=== PATIENT | male | born 1950 | race Caucasian/White ===

== ENCOUNTER 2017-01-31 15:38 | Inpatient (IN) | payer OTHER ==
[~2017-01-31] VITALS: Ht 193 cm; Wt 103.1 kg
[2017-01-31 15:40] VITALS: BP 134/88; PULSE 128; RESP 17; TEMP 97.7; O2SAT 99
--- NOTE | 2017-01-31 18:14 | PD ---
HPI Chief Complaint: Abnormal Results Time Seen by Provider: 18:09 Travel History International Travel<30 days: No Contact w/Intl Traveler<30days: No Traveled to known affect area: No History of Present Illness HPI Patient is a 66-year-old male presenting to the emergency department for evaluation of generalized weakness, shortness of breath, abdominal bloating. Patient was sent by the [facility] due to the same symptoms as well as a 50 pound weight loss over the last 6 weeks. Patient states is unable to eat due to the nausea and vomiting. He denies any diarrhea. He states he has not had a bowel movement in 2 weeks. He reports feeling short of breath which he historically has felt however it's worse today. Patient had a thoracentesis on 12/24/16 in [place]. He had a repeat CT of the chest today per [facility] notes. Results are not available. He was sent to the emergency room additionally due to elevated liver enzymes, elevated BUN and creatinine, elevated potassium level. PFSH Past Medical History High Cholesterol: Yes Diabetes: Yes Hypertension: Yes Past Surgical History Thoracic Surgery: Yes (thoracentesis) Social History Alcohol Use: No Tobacco Use: Yes Substance Use: No Allergies-Medications (Allergen,Severity, Reaction): Coded Allergies: Lisinopril (Verified Allergy, Intermediate, COUGH, 01/31/17) Reported Meds & Prescriptions Reported Meds & Active Scripts Active Reported Multi Vitamin (Multiple Vitamin) 1 Tab Tab 1 Tab PO DAILY Atorvastatin (Atorvastatin Calcium) 40 Mg Tab 40 Mg PO HS Ventolin Hfa 18 GM Inh (Albuterol Sulfate) 90 Mcg/Act Aer 2 Puff INH Q4-6H PRN Review of Systems Except as stated in HPI: all other systems reviewed are Neg General / Constitutional: Positive: Fever (subjective), No: Chills HENT: No: Headaches Cardiovascular: Positive: Dyspnea on exertion, No: Chest Pain or Discomfort Respiratory: Positive: Cough, Shortness of Breath Gastrointestinal: Positive: Nausea, Vomiting, Abdominal Pain, Constipation, Changes in Bowel Habits, Loss of Appetite Genitourinary: No: Dysuria Neurologic: No: Dizziness, Focal Abnormalities Physical Exam Narrative GENERAL: Well-developed, well-nourished, alert male. Resting comfortably in no acute distress. SKIN: Warm and dry. HEAD: Atraumatic. Normocephalic. EYES: Pupils equal and round. No scleral icterus. No injection or drainage. ENT: No nasal bleeding or discharge. Mucous membranes pink and moist. NECK: Trachea midline. No JVD. CARDIOVASCULAR: Regular rate and rhythm. No murmur appreciated. RESPIRATORY: No accessory muscle use. Diminished breath sounds in right lower lobe, no wheezes, rhonchi, rales noted. GASTROINTESTINAL: Abdomen soft, non-tender, nondistended. Hepatic and splenic margins not palpable. MUSCULOSKELETAL: No obvious deformities. No clubbing. No cyanosis. No edema. NEUROLOGICAL: Awake and alert. No obvious cranial nerve deficits. Motor grossly within normal limits. Normal speech. PSYCHIATRIC: Appropriate mood and affect; insight and judgment normal. Data Data Last Documented VS Vital Signs Date Time Temp Pulse Resp B/P Pulse Ox O2 Delivery O2 Flow Rate FiO2 01/31/17 20:09 105 18 134/70 96 Room Air 01/31/17 15:40 97.7 Orders Complete Blood Count With Diff (01/31/17 18:07) Comprehensive Metabolic Panel (01/31/17 18:07) Act Partial Throm Time (Ptt) (01/31/17 18:07) Prothrombin Time / Inr (Pt) (01/31/17 18:07) Magnesium (Mg) (01/31/17 18:07) Urinalysis - C+S If Indicated (01/31/17 18:07) Chest, Pa & Lat (01/31/17 18:07) Lipase (01/31/17 18:07) Lactic Acid (01/31/17 18:07) Abdomen, Kub Only (01/31/17 18:07) D-Dimer (01/31/17 18:14) Electrocardiogram (01/31/17 ) Diltiazem Inj (Cardizem Inj) (01/31/17 19:45) Ckmb (Isoenzyme) Profile (01/31/17 19:51) Troponin I (01/31/17 19:51) Diltiazem Inj (Cardizem Inj) (01/31/17 20:00) Sodium Chlor 0.9% 1000 Ml Inj (Ns 1000 M (01/31/17 20:00) Sodium Chlor 0.9% 1000 Ml Inj (Ns 1000 M (01/31/17 20:02) Us Abdomen Gallbladder (01/31/17 ) Ceftriaxone Inj (Rocephin Inj) (01/31/17 20:15) Azithromycin Inj (Zithromax Inj) (01/31/17 20:15) Labs Laboratory Tests Test 01/31/17 18:40 White Blood Count 9.8 TH/MM3 Red Blood Count 4.45 MIL/MM3 Hemoglobin 13.9 GM/DL Hematocrit 42.2 % Mean Corpuscular Volume 94.7 FL Mean Corpuscular Hemoglobin 31.3 PG Mean Corpuscular Hemoglobin 33.0 % Concent Red Cell Distribution Width 18.8 % Platelet Count 100 TH/MM3 Mean Platelet Volume 9.9 FL Neutrophils (%) (Auto) 82.9 % Lymphocytes (%) (Auto) 3.7 % Monocytes (%) (Auto) 13.2 % Eosinophils (%) (Auto) 0.0 % Basophils (%) (Auto) 0.2 % Neutrophils # (Auto) 8.1 TH/MM3 Lymphocytes # (Auto) 0.4 TH/MM3 Monocytes # (Auto) 1.3 TH/MM3 Eosinophils # (Auto) 0.0 TH/MM3 Basophils # (Auto) 0.0 TH/MM3 CBC Comment DIFF FINAL Differential Comment Prothrombin Time 14.7 SEC Prothromb Time International 1.3 RATIO Ratio Activated Partial 30.3 SEC Thromboplast Time D-Dimer Quantitative (PE/DVT) 12.93 MG/L FEU Sodium Level 122 MEQ/L Potassium Level 5.1 MEQ/L Chloride Level 87 MEQ/L Carbon Dioxide Level 22.8 MEQ/L Anion Gap 12 MEQ/L Blood Urea Nitrogen 70 MG/DL Creatinine 2.47 MG/DL Estimat Glomerular Filtration 26 ML/MIN Rate Random Glucose 123 MG/DL Lactic Acid Level 2.5 mmol/L Calcium Level 8.5 MG/DL Magnesium Level 2.8 MG/DL Total Bilirubin 4.7 MG/DL Aspartate Amino Transf 67 U/L (AST/SGOT) Alanine Aminotransferase 284 U/L (ALT/SGPT) Alkaline Phosphatase 117 U/L Total Protein 7.3 GM/DL Albumin 3.0 GM/DL Lipase 193 U/L MDM Medical Decision Making Medical Screen Exam Complete: Yes Emergency Medical Condition: Yes Interpretation(s) Vital Signs Date Time Temp Pulse Resp B/P Pulse Ox O2 Delivery O2 Flow Rate FiO2 01/31/17 15:40 97.7 128 17 134/88 99 Differential Diagnosis Sepsis versus malignancy versus pneumothorax versus pneumonia versus liver failure versus acute kidney injury versus other Narrative Course Patient is a 66-year-old male presenting to emergency for evaluation of generalized weakness, nausea and vomiting, abdominal pain, weight loss. Patient sustained a mechanical fall yesterday. Labs ordered and pending. D-dimer will be obtained due to tachycardia and shortness of breath. Workup initiated in triage, care of patient will be transferred to a provider when a medical bed is available. Evy Thorpe Jan 31, 2017 18:14
[2017-01-31] MEDS ORDERED: MULT-135 PO (19:00)
[2017-01-31] MEDS ORDERED: VENTAER INH (19:00)
[2017-01-31] MEDS ORDERED: ATOR40TA16 PO (19:00)
[2017-01-31 19:04] LABS: AUTOMATED NEUTROPHIL # 8.1 TH/MM3 (1.8-7.7); BASOPHIL % 0.2 % (0.0-2.0); HEMATOCRIT 42.2 % (39.0-51.0); HEMO FLAGS DIFF FINAL; LYMPH % 3.7 % (9.0-44.0); LYMPHOCYTE # 0.4 TH/MM3 (1.0-4.8); MEAN CELL VOLUME 94.7 FL (80.0-100.0); MEAN CORPUSCULAR HEMOGLOBIN 31.3 PG (27.0-34.0); MONO % 13.2 % (0.0-8.0); NEUT % 82.9 % (16.0-70.0); PLATELET COUNT 100 TH/MM3 (150-450); RED BLOOD COUNT 4.45 MIL/MM3 (4.50-5.90); RED CELL DISTRIBUTION WIDTH 18.8 % (11.6-17.2); WHITE BLOOD COUNT 9.8 TH/MM3 (4.0-11.0)
[2017-01-31 19:14] LABS: APTT (PATIENT) 30.3 SEC (24.3-30.1); INTERNATIONAL NORMALIZED RATIO 1.3 RATIO; PROTHROMBIN TIME - PATIENT 14.7 SEC (9.8-11.6)
--- NOTE | 2017-01-31 19:18 | RADRPT ---
EXAM DATE/TIME: 01/31/2017 18:21 [facility] COMPARISON: No previous studies available for comparison. INDICATIONS : Short of breath. MEDICAL HISTORY : smoker. SURGICAL HISTORY : None. ENCOUNTER: Initial ACUITY: 2 months PAIN SCORE: 0/10 LOCATION: Bilateral chest FINDINGS: There appears to be parenchymal consolidation and effusion involving the right lower lung. The left l bahman is clear. Heart size is upper limits of normal. There are no prior studies for comparison. The [place] structures are grossly intact. CONCLUSION: There is parenchymal consolidation in the right lower lung as well as a right-sided pleural effusion. Cem Lee MD on January 31, 2017 at 19:15 Board Certified Radiologist. This report was verified electronically.
--- NOTE | 2017-01-31 19:22 | RADRPT ---
EXAM DATE/TIME: 01/31/2017 18:27 [facility] COMPARISON: No previous studies available for comparison. INDICATIONS : Distention. MEDICAL HISTORY : Liver and kidney disfunction. SURGICAL HISTORY : None. ENCOUNTER: Initial ACUITY: 4 - 6 days PAIN SCORE: 10/10 LOCATION: Bilateral abdomen. FINDINGS: Supine view of the abdomen was performed. The abdominal bowel gas pattern is nonspecific. There is s ome nondilated air-filled loops of small bowel. The colon is nondilated. There is stool in the colon. .. there is a calcification in the right upper quadrant having the appearance of a possible gallstone . There are degenerative changes of lumbar spine. CONCLUSION: 1. Nonspecific bowel gas pattern. 2. Calcification right upper quadrant most likely representing a gallstone. Cem Lee MD on January 31, 2017 at 19:18 Board Certified Radiologist. This report was verified electronically.
[2017-01-31 19:39] VITALS: BP 164/102; PULSE 128; RESP 19; O2SAT 97
[2017-01-31] MEDS ORDERED: DILTIAZEM HCL 25 MG/5 ML VIAL IV ONE ×2 (19:45→20:00)
[2017-01-31 19:56] LABS: ALKALINE PHOSPHATASE 117 U/L (45-117); ALT (GPT) 284 U/L (12-78); ANION GAP 12 MEQ/L (5-15); AST (GOT) 67 U/L (15-37); BICARBONATE 22.8 MEQ/L (21.0-32.0); BLOOD UREA NITROGEN 70 MG/DL (7-18); CHLORIDE 87 MEQ/L (98-107); GLOMERULAR FILTRATION RATE 26 ML/MIN (>89); MAGNESIUM 2.8 MG/DL (1.5-2.5); POTASSIUM 5.1 MEQ/L (3.5-5.1); TOTAL BILIRUBIN ADULT 4.7 MG/DL (0.2-1.0)
[2017-01-31 19:59] LABS: SODIUM (NA) 122 MEQ/L (136-145)
[2017-01-31] MEDS ORDERED: SODIUM CHLOR 0.9% 1000 ML INJ 1,000 ML IV ONE (20:00)
[2017-01-31] MEDS ORDERED: SODIUM CHLOR 0.9% 1000 ML INJ 1,000 ML IV SCH ×2 (20:02→20:27)
[2017-01-31 20:09] VITALS: BP 134/70; PULSE 105; RESP 18; O2SAT 96
[2017-01-31] MEDS ORDERED: AZITHROMYCIN INJ 500 MG in SODIUM CHLOR 0.9% 250 ML INJ 250 ML IV ONE (20:15)
[2017-01-31] MEDS ORDERED: cefTRIAXone INJ 1,000 MG in SODIUM CHLORIDE 0.9% INJ 100 ML IV ONE (20:15)
[2017-01-31 20:19] LABS: CREATINE KINASE 155 U/L (39-308)
--- NOTE | 2017-01-31 20:20 | PD ---
Data Data Last Documented VS Vital Signs Date Time Temp Pulse Resp B/P Pulse Ox O2 Delivery O2 Flow Rate FiO2 01/31/17 20:09 105 18 134/70 96 Room Air 01/31/17 15:40 97.7 Orders Complete Blood Count With Diff (01/31/17 18:07) Comprehensive Metabolic Panel (01/31/17 18:07) Act Partial Throm Time (Ptt) (01/31/17 18:07) Prothrombin Time / Inr (Pt) (01/31/17 18:07) Magnesium (Mg) (01/31/17 18:07) Urinalysis - C+S If Indicated (01/31/17 18:07) Chest, Pa & Lat (01/31/17 18:07) Lipase (01/31/17 18:07) Lactic Acid (01/31/17 18:07) Abdomen, Kub Only (01/31/17 18:07) D-Dimer (01/31/17 18:14) Electrocardiogram (01/31/17 ) Diltiazem Inj (Cardizem Inj) (01/31/17 19:45) Ckmb (Isoenzyme) Profile (01/31/17 19:51) Troponin I (01/31/17 19:51) Diltiazem Inj (Cardizem Inj) (01/31/17 20:00) Sodium Chlor 0.9% 1000 Ml Inj (Ns 1000 M (01/31/17 20:00) Sodium Chlor 0.9% 1000 Ml Inj (Ns 1000 M (01/31/17 20:02) Us Abdomen Gallbladder (01/31/17 ) Ceftriaxone Inj (Rocephin Inj) (01/31/17 20:15) Azithromycin Inj (Zithromax Inj) (01/31/17 20:15) CKMB (01/31/17 18:40) CKMB% (01/31/17 18:40) Vital Signs (Adult) Q15MX4,Q4H (01/31/17 20:20) [employer] / Telemetry SHAWNA.Q8H (01/31/17 20:20) Cardiac Rhythm SHAWNA.Q8H (01/31/17 20:20) ^ Notify Dr: Other (01/31/17 20:20) Diltiazem Inj (Cardizem Inj) (01/31/17 20:30) Labs Laboratory Tests Test 01/31/17 18:40 White Blood Count 9.8 TH/MM3 Red Blood Count 4.45 MIL/MM3 Hemoglobin 13.9 GM/DL Hematocrit 42.2 % Mean Corpuscular Volume 94.7 FL Mean Corpuscular Hemoglobin 31.3 PG Mean Corpuscular Hemoglobin 33.0 % Concent Red Cell Distribution Width 18.8 % Platelet Count 100 TH/MM3 Mean Platelet Volume 9.9 FL Neutrophils (%) (Auto) 82.9 % Lymphocytes (%) (Auto) 3.7 % Monocytes (%) (Auto) 13.2 % Eosinophils (%) (Auto) 0.0 % Basophils (%) (Auto) 0.2 % Neutrophils # (Auto) 8.1 TH/MM3 Lymphocytes # (Auto) 0.4 TH/MM3 Monocytes # (Auto) 1.3 TH/MM3 Eosinophils # (Auto) 0.0 TH/MM3 Basophils # (Auto) 0.0 TH/MM3 CBC Comment DIFF FINAL Differential Comment Prothrombin Time 14.7 SEC Prothromb Time International 1.3 RATIO Ratio Activated Partial 30.3 SEC Thromboplast Time D-Dimer Quantitative (PE/DVT) 12.93 MG/L FEU Sodium Level 122 MEQ/L Potassium Level 5.1 MEQ/L Chloride Level 87 MEQ/L Carbon Dioxide Level 22.8 MEQ/L Anion Gap 12 MEQ/L Blood Urea Nitrogen 70 MG/DL Creatinine 2.47 MG/DL Estimat Glomerular Filtration 26 ML/MIN Rate Random Glucose 123 MG/DL Lactic Acid Level 2.5 mmol/L Calcium Level 8.5 MG/DL Magnesium Level 2.8 MG/DL Total Bilirubin 4.7 MG/DL Aspartate Amino Transf 67 U/L (AST/SGOT) Alanine Aminotransferase 284 U/L (ALT/SGPT) Alkaline Phosphatase 117 U/L Total Creatine Kinase 155 U/L Troponin I LESS THAN 0.02 NG/ML Total Protein 7.3 GM/DL Albumin 3.0 GM/DL Lipase 193 U/L [facility] Supervised Visit with REYNALDO: No Narrative Course The patient was initially evaluated in triage by the nurse practitioner brought back to my care 4 hours after he initially presented to the emergency department. See her note for further details. Briefly this is a 66-year-old male who was sent to the emergency department by the CT clinic for evaluation of elevated liver enzymes and elevated creatinine. These findings are new for the patient. Patient is complaining of generalized weakness and abdominal bloating. He denies abdominal pain. He is also had a 50 pound weight loss over the last 6 weeks. He had a thoracentesis on 12/24/16 in [place] and had a repeat CT of the abdomen and thorax today per the CT notes, however results are not available. Patient denies chest pain or dyspnea. On physical exam he is resting comfortably. His heart rate is noted to be 130, atrial flutter. Blood pressure is 134/88. CBC shows WBC 9.8, hemoglobin 13.9, hematocrit 42.2, platelets 100, neutrophils 82.9%. CMP is remarkable for sodium 122, BUN 70, creatinine 2.47, GFR 26, T bili 4.7, AST 67, ALT 284. Lactic acid is 2.5. Chest x-ray: Parenchymal consolidation in the right lower lung as well as right-sided pleural effusion. X-ray abdomen pelvis: Nonspecific bowel gas pattern. Calcification right upper quadrant most likely representing a gallstone. On physical exam there is no abdominal tenderness. The patient is resting comfortably. He was given 20 mg of IV Cardizem without improvement in heart rate. He was then given another 20 mg of IV Cardizem, again without improvement in heart rate. He was then started on a Cardizem drip. Right upper quadrant ultrasound ordered. The patient was started on Rocephin and azithromycin for chest x-ray findings. He was given a liter of normal saline bolus followed by normal saline at 125 cc per hour. He will be admitted for further treatment and evaluation of hyponatremia, atrial flutter with RVR, lactic acidosis, renal insufficiency, transaminitis. Case discussed with hospitalist Dr. Hung who will admit the patient to his service to the ICU. Critical Care Narrative Aggregate critical care time was 35 minutes. Time to perform other separately billable procedures was not included in the critical care time. My time did not include minutes spent treating any other patients simultaneously or on activities that did not directly contribute to the patient's treatment. The services I provided to this patient were to treat and/or prevent clinically significant deterioration that could result in: , permanent disability, worsening clinical condition I provided critical care services requiring my management, as noted below: Chart data review, documentation time, medication orders and management, vital sign assessments/reviewing monitor data, ordering and reviewing lab tests, ordering and interpreting/reviewing x-rays and diagnostic studies, care of the patient and discussion of the patient with the admitting physicians. Diagnosis Primary Impression: Atrial flutter with rapid ventricular response Additional Impressions: Hyponatremia Renal insufficiency Transaminitis Lactic acidosis Pneumonia Qualified Code: J18.1 - Pneumonia of right lower lobe due to infectious organism Pleural effusion Admitting Information Admitting Physician Requests: Admit Neftaly Landon MD Jan 31, 2017 20:20
[2017-01-31] MEDS ORDERED: NALOXONE HCL 0.4 MG/ML AMP IV PRN (20:30)
[2017-01-31] MEDS ORDERED: ONDANSETRON HCL 4 MG/2 ML VIAL IVP PRN (20:30)
[2017-01-31] MEDS ORDERED: MAGNESIUM HYDROXIDE SUSP 30 ML CUP PO PRN (20:30)
--- NOTE | 2017-01-31 20:46 | HHI.HP ---
[facility] Primary Care Physician Admission Diagnosis A flutter with RVR, hyponatremia, renal insufficiency, transaminitis Diagnoses: Chief Complaint: increased swelling, cough, abdominal pain Travel History International Travel<30 Days: No Contact w/Intl Traveler <30 Da: No Traveled to Known Affected Are: No History of Present Illness 66 y/o with a history of DM, HTN, hyperlipidemia and COPD was sent to the ED from the [facility] for abnormal chest CT. Patient explains that all his problems started 3-4 weeks ago when fluid was found in his lungs, at the [facility] he reportedly had a thoracentesis. He followed up with the [facility] today who sent him for a CT scan and told him he needed to be admitted to a hospital. He was not told what the CT showed. Yesterday he states he felt dizzy and lost his balance and fall. Denies loss of consciousness, but does have pain in the sacral region where he landed. He complains of a dry cough with no sputum production and increased swelling in his legs. He is also complaining of swelling and pain on the right side of his abdomen. He states he feels feverish but no documented temp. He denies any chest pain, chills, nausea , vomiting, constipation or diarrhea. He was on Levaquin at some point from the [facility] but is unsure when he last took it. Records are being requested from the [facility]. Review of Systems Constitutional: COMPLAINS OF: Fever, Night Sweats, DENIES: Chills, Dizziness Eyes: DENIES: Blurred vision Respiratory: COMPLAINS OF: Cough, Shortness of breath, DENIES: Sputum production Cardiovascular: COMPLAINS OF: Lower Extremity Edema, DENIES: Chest pain Gastrointestinal: COMPLAINS OF: Abdominal pain, DENIES: Constipation, Diarrhea , Nausea, Vomiting Genitourinary: DENIES: Urinary incontinence, Urgency, Hematuria, Dysuria Musculoskeletal: COMPLAINS OF: Back pain, DENIES: Neck pain Integumentary: DENIES: Rash Hematologic/lymphatic: DENIES: Lymphadenopathy Neurologic: DENIES: Headache, Localized weakness Past Family Social History Past Medical History DM HTN Hyperlipidemia Chronic low back pain COPD Past Surgical History Denies any surgical history Reported Medications Reported Meds & Active Scripts Active Reported Multi Vitamin (Multiple Vitamin) 1 Tab Tab 1 Tab PO DAILY Atorvastatin (Atorvastatin Calcium) 40 Mg Tab 40 Mg PO HS Ventolin Hfa 18 GM Inh (Albuterol Sulfate) 90 Mcg/Act Aer 2 Puff INH Q4-6H PRN Allergies: Coded Allergies: Lisinopril (Verified Allergy, Intermediate, COUGH, 01/31/17) Active Ordered Medications Current Medications Medications (Trade) Dose Ordered Sig/Narda Route Start Time Stop Time Status Last Admin Sodium Chloride 1,000 ml @ 999 mls/hr BOLUS ONCE IV 01/31/17 20:00 01/31/17 21:00 01/31/17 20:06 Sodium Chloride 1,000 ml @ 125 mls/hr Q8H IV 01/31/17 20:02 02/01/17 04:01 Ceftriaxone Sodium 1000 mg/ Sodium Chloride 100 ml @ 200 mls/hr ONCE ONCE IV 01/31/17 20:15 01/31/17 20:44 Azithromycin 500 mg/Sodium Chloride 250 ml @ 250 mls/hr ONCE ONCE IV 01/31/17 20:15 01/31/17 21:14 01/31/17 20:12 Diltiazem HCl 125 mg/Sodium Chloride 125 ml @ 0 mls/hr TITRATE IV 01/31/17 20:30 (NS 1000 ml Inj) 1,000 ml @ 70 mls/hr [id number] IV 01/31/17 20:27 UNV (Zofran Inj) 4 mg Q6H PRN IVP 01/31/17 20:30 UNV (Milk Of Magnesia Liq) 30 ml Q12H PRN PO 01/31/17 20:30 UNV (Heparin Inj) 5,000 units Q12H SQ 01/31/17 20:30 UNV (Narcan Inj) 0.4 mg UNSCH PRN IV 01/31/17 20:30 UNV Family History Patient denies any family history including heart disease and DM. Social History Tobacco use: quit 3 years ago, prior to this he smokes 1 ppd for 25 years Alcohol use: Only on Fridays Illicit drug use: Marijuana use, none for the past 2 months Physical Exam Vital Signs Vital Signs Date Time Temp Pulse Resp B/P Pulse Ox O2 Delivery O2 Flow Rate FiO2 01/31/17 20:09 105 18 134/70 96 Room Air 01/31/17 19:39 128 19 164/102 97 Room Air 01/31/17 15:40 97.7 128 17 134/88 99 Physical Exam GENERAL: This is a well-nourished, well-developed patient, in some distress. SKIN: No rashes, ecchymoses or lesions. Cool and dry. HEAD: Atraumatic. Normocephalic. EYES: Pupils equal round and reactive. Extraocular motions intact. ENT: Nose without bleeding, purulent drainage or septal hematoma. Airway patent. NECK: Trachea midline. No JVD CARDIOVASCULAR: Tachycardic rate and aflutter rhythm without murmurs, gallops, or rubs. +2 pitting lower extremity edema. RESPIRATORY: Decreased breath sounds bilaterally. Right lower base crackles. GASTROINTESTINAL: Abdomen soft, tender, nondistended. No hepato-splenomegaly, or palpable masses. No guarding. MUSCULOSKELETAL: Bilateral lower extremities edematous. No joint tenderness, effusion, or edema noted. No calf tenderness. NEUROLOGICAL: Awake and alert. Motor and sensory grossly within normal limits. Normal speech. Laboratory Laboratory Tests Test 01/31/17 18:40 White Blood Count 9.8 Red Blood Count 4.45 Hemoglobin 13.9 Hematocrit 42.2 Mean Corpuscular Volume 94.7 Mean Corpuscular Hemoglobin 31.3 Mean Corpuscular Hemoglobin 33.0 Concent Red Cell Distribution Width 18.8 Platelet Count 100 Mean Platelet Volume 9.9 Neutrophils (%) (Auto) 82.9 Lymphocytes (%) (Auto) 3.7 Monocytes (%) (Auto) 13.2 Eosinophils (%) (Auto) 0.0 Basophils (%) (Auto) 0.2 Neutrophils # (Auto) 8.1 Lymphocytes # (Auto) 0.4 Monocytes # (Auto) 1.3 Eosinophils # (Auto) 0.0 Basophils # (Auto) 0.0 CBC Comment DIFF FINAL Differential Comment Prothrombin Time 14.7 Prothromb Time International 1.3 Ratio Activated Partial 30.3 Thromboplast Time D-Dimer Quantitative (PE/DVT) 12.93 Sodium Level 122 Potassium Level 5.1 Chloride Level 87 Carbon Dioxide Level 22.8 Anion Gap 12 Blood Urea Nitrogen 70 Creatinine 2.47 Estimat Glomerular Filtration 26 Rate Random Glucose 123 Lactic Acid Level 2.5 Calcium Level 8.5 Magnesium Level 2.8 Total Bilirubin 4.7 Aspartate Amino Transf 67 (AST/SGOT) Alanine Aminotransferase 284 (ALT/SGPT) Alkaline Phosphatase 117 Total Creatine Kinase 155 Creatine Kinase MB 3.0 Troponin I LESS THAN 0.02 Total Protein 7.3 Albumin 3.0 Lipase 193 Result Diagram: 01/31/17 1840 01/31/17 1840 Imaging Last Impressions Chest X-Ray 01/31/17 180 Signed Impressions: Service Date/Time: Tuesday, January 31, 2017 18:21 - CONCLUSION: There is parenchymal consolidation in the right lower lung as well as a right-sided pleural effusion. Cem Lee MD Abdomen X-Ray 01/31/171806 Signed Impressions: Service Date/Time: Tuesday, January 31, 2017 18:27 - CONCLUSION: 1. Nonspecific bowel gas pattern. 2. Calcification right upper quadrant most likely representing a gallstone. Cem Lee MD Gall Bladder Ultrasound 01/31/17 0000 Signed Impressions: Service Date/Time: Tuesday, January 31, 2017 20:24 - CONCLUSION: 1. Cholelithiasis with mild gallbladder wall thickening. 2. Moderate to large right effusion. 3. Ascitic fluid in the right lower quadrant. Jacob Graham MD Assessment and Plan Problem List: (1) Pneumonia ICD Code: J18.9 Status: Acute (2) Atrial flutter with rapid ventricular response ICD Code: I48.92 Status: Acute (3) Abdominal pain ICD Code: R10.9 Status: Acute (4) Acute kidney failure ICD Code: N17.9 Status: Acute (5) Elevated LFTs ICD Code: R94.5 Status: Acute (6) Edema ICD Code: R60.9 Status: Acute (7) Hyponatremia ICD Code: E87.1 Status: Acute (8) Lactic acidosis ICD Code: E87.2 Status: Acute Assessment and Plan 66 y/o with a history of DM, HTN, hyperlipidemia and COPD was sent to the ED from the [place] for abnormal chest CT. Pneumonia Images reviewed: Chest xray shows parenchymal consolidation in the right lower lung as well as a right-sided pleural effusion. Labs: Neutrophils 82.9 % -IV antibiotics Rocephin and Azithromycin -CBC in AM -Consult ID for recommendations -Awaiting records from [place] Abdominal pain/ Elevated LFTs/ Cholelithiasis Images reviewed: Abdominal xray shows Nonspecific bowel gas pattern and calcification right upper quadrant most likely representing a gallstone. Gall bladder US shows Cholelithiasis with mild gallbladder wall thickening. Moderate to large right effusion, and ascitic fluid in the right lower quadrant. Labs: AST 67, ALT 284 -Consult GI and general surgery for recommendations -CMP in AM -Hepatitis profile ordered Aflutter with RVR EKG shows Aflutter with RVR -Consult cardiology -Cont Cardizem drip -Monitor tele Acute kidney failure Labs reviewed: creatine 2.47 unknown baseline -Consult nephrology for recommendations -Trend CMP -Avoid nephrotoxic drugs Edema, +2 in bilateral lower extremities -Bumex IV BID Hyponatremia/ Lactic Acidosis Labs: NS 122, Lactic acid 2.5 -Gentle IVF -CMP, Lactic acid in AM -Blood cultures pending DVT prophylaxis: Heparin Written by Radha PHILLIPS, acting as scribe for Dr. Hung on 01/31/17 at 2036. All or portions of this note were transcribed by scribe JACQUELINE Sow. I, Dr. Daniel Hung personally performed the history, physical exam, and medical decision making; and confirmed the accuracy of the information in the transcribed note. Authenticated by Dr. Daniel Hung on 02/01/17 at 01:59. Code Status FULL Discussed Condition With Patient and RN Physician Certification 2 Midnight Certification Type: Admission for Inpatient Services Order for Inpatient Services The services are ordered in accordance with Medicare regulations or non- Medicare payer requirements, as applicable. In the case of services not specified as inpatient-only, they are appropriately provided as inpatient services in accordance with the 2-midnight benchmark. Estimated LOS (days): 3 days is the estimated time the patient will need to remain in the hospital, assuming treatment plan goals are met and no additional complications. Post-Hospital Plan: Home Problem Qualifiers (1) Pneumonia: Qualified Code: J18.1 - Pneumonia of right lower lobe due to infectious organism Radha Perez Jan 31, 2017 20:46 Daniel Hung MD Feb 01, 2017 01:59
[2017-01-31] MEDS ORDERED: HEPARIN SODIUM - SQ 10,000 UNITS/ML VIAL SQ SCH (21:00)
--- NOTE | 2017-01-31 21:00 | RADRPT ---
EXAM DATE/TIME: 01/31/2017 20:24 [place] COMPARISON: No previous studies available for comparison. INDICATIONS : Right upper quadrant pain. MEDICAL HISTORY : Hypercholesterolemia. Hypertension. Renal failure. Diabetes. SURGICAL HISTORY : Thoracentesis. ENCOUNTER: Initial ACUITY: 2 weeks PAIN SCORE: 3/10 LOCATION: Right upper quadrant MEASUREMENTS: LIVER: 14.4 cm length COMMON DUCT: 4 mm RIGHT KIDNEY: 10.3 x 5.0 x 5.5 cm FINDINGS: LIVER: Normal echotexture without focal lesion or ductal dilatation. There is a moderate to large right eff usion. Ascitic fluid is present in the right lower quadrant. COMMON DUCT: No intraluminal mass or stone visualized. GALLBLADDER: The gallbladder is normal in size with mild wall thickening measuring up to 4 mm with no pericholecys tic fluid. There is a 17 mm gallstone in the neck of the gallbladder with posterior shadowing. PANCREAS: Could not be visualized due to overlying bowel gas. RIGHT KIDNEY: No evidence of hydronephrosis, stone, or mass. CONCLUSION: 1. Cholelithiasis with mild gallbladder wall thickening. 2. Moderate to large right effusion. 3. Ascitic fluid in the right lower quadrant. Jacob Graham MD on January 31, 2017 at 20:57 Board Certified Radiologist. This report was verified electronically.
[2017-01-31] MEDS: DILTIAZEM INJ 125 MG in SODIUM CHLORIDE 0.9% INJ 100 ML IV SCH (21:10)
[2017-01-31] MEDS ORDERED: BUMETANIDE INJ 1 MG/4 ML VIAL IV PUSH ONE (21:15)
[2017-01-31 22:11] LABS: BACTERIA, URINE OCC /hpf; BLOOD, URINE NEG (NEG); COMMENT (UR) CULT NOT INDICATED; CULTURE IF INDICATED CULT NOT INDICATED; GLUCOSE,URINE NEG (NEG); HYALINE CAST, URINE 20 /lpf (RARE); KETONE, URINE NEG (NEG); MUCUS URINE FEW /lpf (OCC); NITRITE,URINE NEG (NEG); PH, URINE 5.5 (5.0-8.5); SQUAMOUS EPITHELIAL CELL URINE <1 /hpf (0-5); URINE COLOR AMBER (YELLW/STRAW)
[2017-01-31 22:22] VITALS: BP 115/71; PULSE 127; RESP 24; TEMP 97.9; O2SAT 99
[2017-01-31] MEDS ORDERED: CHLORHEXIDINE GLUCONATE 2 % 1 PACK (2 CLOTHS)(extra cloths) TOP PRN (22:30)
[2017-01-31 23:00] VITALS: PULSE 127
[2017-02-01] VITALS (12 sets, daily range): BP systolic 119–163; BP diastolic 75–128; PULSE 109–128; RESP 18–24; TEMP 97.7–98; O2SAT 94–97
[2017-02-01] MEDS: CHLORHEXIDINE GLUCONATE 2 % 1 PACK (2 CLOTHS)(taper/protocol) TOP SCH (05:53)
[2017-02-01] MEDS: DILTIAZEM INJ 125 MG in SODIUM CHLORIDE 0.9% INJ 100 ML IV SCH (06:25)
[2017-02-01 06:29] LABS: AUTOMATED NEUTROPHIL # 7.5 TH/MM3 (1.8-7.7); BASOPHIL % 0.1 % (0.0-2.0); HEMATOCRIT 37.7 % (39.0-51.0); LYMPH % 4.4 % (9.0-44.0); LYMPHOCYTE # 0.4 TH/MM3 (1.0-4.8); MEAN CELL VOLUME 93.2 FL (80.0-100.0); MEAN CORPUSCULAR HEMOGLOBIN 31.6 PG (27.0-34.0); MEAN CORPUSCULAR HGB CONC 33.9 % (32.0-36.0); MONO % 13.2 % (0.0-8.0); NEUT % 82.3 % (16.0-70.0); PLATELET COUNT 98 TH/MM3 (150-450); RED BLOOD COUNT 4.04 MIL/MM3 (4.50-5.90); RED CELL DISTRIBUTION WIDTH 18.3 % (11.6-17.2); WHITE BLOOD COUNT 9.1 TH/MM3 (4.0-11.0)
[2017-02-01 06:36] LABS: HEMO FLAGS AUTO DIFF
[2017-02-01 06:37] LABS: INTERNATIONAL NORMALIZED RATIO 1.4 RATIO; PROTHROMBIN TIME - PATIENT 15.4 SEC (9.8-11.6)
[2017-02-01 07:02] LABS: ANION GAP 14 MEQ/L (5-15); AST (GOT) 52 U/L (15-37); BICARBONATE 23.5 MEQ/L (21.0-32.0); BLOOD UREA NITROGEN 68 MG/DL (7-18); CHLORIDE 91 MEQ/L (98-107); GLOMERULAR FILTRATION RATE 30 ML/MIN (>89); POTASSIUM 5.2 MEQ/L (3.5-5.1); SODIUM (NA) 128 MEQ/L (136-145)
[2017-02-01 07:05] LABS: ALKALINE PHOSPHATASE 95 U/L (45-117); ALT (GPT) 217 U/L (12-78); TOTAL BILIRUBIN ADULT 3.6 MG/DL (0.2-1.0)
[2017-02-01 07:48] LABS: OVALOCYTES 1+ (NORMAL); PLATELET ESTIMATE SMEAR LOW (NORMAL); PLATELET MORPHOLOGY NORMAL (NORMAL); SCAN/DIFF AUTO DIFF CONFIRMED
[2017-02-01] MEDS ORDERED: cefTRIAXone INJ 1,000 MG in SODIUM CHLORIDE 0.9% INJ 100 ML IV SCH (08:00)
[2017-02-01] MEDS ORDERED: hydrALAZINE HCL 20 MG/ML VIAL IV PUSH PRN (08:45)
[2017-02-01] MEDS ORDERED: HEPARIN SODIUM - IV 10,000 UNITS/10 ML VIAL IV ONE (09:00)
--- NOTE | 2017-02-01 09:00 | HHI.PR ---
Subjective Remarks in no acute distress. complaining of swelling of the legs. no fever. HR still elevated. d/w the RN. Objective Vitals Vital Signs Date Time Temp Pulse Resp B/P Pulse Ox O2 Delivery O2 Flow Rate FiO2 02/01/17 06:00 110 02/01/17 04:00 97.8 117 18 163/81 96 02/01/17 04:00 117 02/01/17 02:00 122 02/01/17 00:00 97.8 128 20 119/89 97 02/01/17 00:00 128 01/31/17 23:00 127 01/31/17 22:22 97.9 127 24 115/71 99 01/31/17 20:09 105 18 134/70 96 Room Air 01/31/17 20:09 96 21 01/31/17 19:39 128 19 164/102 97 Room Air 01/31/17 15:40 97.7 128 17 134/88 99 I/O 01/31/17 01/31/17 01/31/17 02/01/17 02/01/17 02/01/17 07:00 15:00 23:00 07:00 15:00 23:00 Intake Total 262 ml 2116 ml Output Total 0 ml 240 ml Balance 262 ml 1876 ml Intake Oral 0 ml 800 ml IV Total 262 ml 1316 ml Output Urine Total 0 ml 240 ml # Bowel Movements 0 0 Result Diagram: 02/01/17 0609 02/01/17 0609 Imaging Last Impressions Chest X-Ray 01/31/171806 Signed Impressions: Service Date/Time: Tuesday, January 31, 2017 18:21 - CONCLUSION: There is parenchymal consolidation in the right lower lung as well as a right-sided pleural effusion. Cem Lee MD Abdomen X-Ray 01/31/171806 Signed Impressions: Service Date/Time: Tuesday, January 31, 2017 18:27 - CONCLUSION: 1. Nonspecific bowel gas pattern. 2. Calcification right upper quadrant most likely representing a gallstone. Cem Lee MD Gall Bladder Ultrasound 01/31/17 0000 Signed Impressions: Service Date/Time: Tuesday, January 31, 2017 20:24 - CONCLUSION: 1. Cholelithiasis with mild gallbladder wall thickening. 2. Moderate to large right effusion. 3. Ascitic fluid in the right lower quadrant. Jacob Graham MD Objective Remarks GENERAL: This is a well-nourished, well-developed patient, in no apparent distress. CARDIOVASCULAR: tachycardic and irregular rhythm without murmurs, gallops, or rubs. RESPIRATORY: Clear to auscultation. Breath sounds equal bilaterally. No wheezes , rales, or rhonchi. GASTROINTESTINAL: Abdomen soft, non-tender, distended. Normal, active bowel sounds MUSCULOSKELETAL: Extremities with bilateral pedal edema NEURO: Alert & Oriented x4 to person, place, time, situation. Moves all ext x4 Procedures none Medications and IVs Current Medications Diltiazem HCl (Cardizem Inj) 15 mg ONCE ONCE IV Last administered on 19:42; Start 01/31/17 at 19:45; Stop 01/31/17 at 19:46; Status DC Diltiazem HCl 20 mg 20 mg ONCE ONCE IV Last administered on 01/31/17 20:06; Start 01/31/17 at 20:00; Stop 01/31/17 at 20:01; Status DC Sodium Chloride 1,000 ml @ 999 mls/hr BOLUS ONCE IV Last administered on 01/31 20:06; Start 01/31/17 at 20:00; Stop 01/31/17 at 21:00; Status DC Sodium Chloride 1,000 ml @ 125 mls/hr Q8H IV Last administered on 01/31/17 21 :11; Start 01/31/17 at 20:02; Stop 02/01/17 at 04:01; Status DC Ceftriaxone Sodium 1000 mg/ Sodium Chloride 100 ml @ 200 mls/hr ONCE ONCE IV Last administered on 01/31/17 21:11; Start 01/31/17 at 20:15; Stop 01/31/17 at 20:44; Status DC Azithromycin 500 mg/Sodium Chloride 250 ml @ 250 mls/hr ONCE ONCE IV Last administered on 01/31/17 20:12; Start 01/31/17 at 20:15; Stop 01/31/17 at 21:14 ; Status DC Diltiazem HCl 125 mg/Sodium Chloride 125 ml @ 0 mls/hr TITRATE IV Last administered on 02/01/17 06:25; Start 01/31/17 at 20:30 Sodium Chloride (NS 1000 ml Inj) 1,000 ml @ 40 mls/hr Q24H IV ; Start 01/31/17 at 20:27 Ondansetron HCl (Zofran Inj) 4 mg Q6H PRN IVP NAUSEA OR VOMITING; Start at 20:30 Magnesium Hydroxide (Milk Of Magnesia Liq) 30 ml Q12H PRN PO CONSTIPATION; Start 01/31/17 at 20:30 Heparin Sodium (Porcine) (Heparin Inj) 5,000 units Q12HR SQ Last administered on 01/31/17 21:10; Start 01/31/17 at 21:00 Naloxone HCl 0.4 mg 0.4 mg UNSCH PRN IV SEE LABEL COMMENTS; Start 01/31/17 at 20:30 Ceftriaxone Sodium 1000 mg/ Sodium Chloride 100 ml @ 200 mls/hr Q12H IV ; Start 02/01/17 at 08:00 Azithromycin/ Sodium Chloride (Zithromax Inj/ NS 250 ml Inj) 250 ml @ 250 mls/ hr Q24H IV ; Start 02/01/17 at 20:00 Bumetanide (Bumex Inj) 1 mg BID@09,18 IV PUSH ; Start 02/01/17 at 09:00 Bumetanide (Bumex Inj) 1 mg ONCE ONCE IV PUSH Last administered on 01/31/17 21:51; Start 01/31/17 at 21:15; Stop 01/31/17 at 21:16; Status DC Miscellaneous Information Patient in critical care unit? Ass... Q361D XX Last administered on 02/01/17 05:53; Start 01/31/17 at 22:30 Chlorhexidine Gluconate (Chlorhexidine 2% Cloth) 3 pack DAILY@04 TOP Last administered on 02/01/17 05:53; Start 02/01/17 at 04:00; Stop 02/05/17 at 04:01 Chlorhexidine Gluconate (Chlorhexidine 2% Cloth) 3 pack UNSCH PRN TOP HYGIENIC CARE; Start 01/31/17 at 22:30; Stop 02/05/17 at 22:29 Atorvastatin Calcium (Lipitor) 40 mg HS PO ; Start 02/01/17 at 21:00 Multivitamins (Theragran) 1 tab DAILY PO ; Start 02/01/17 at 09:00 A/P Assessment and Plan A/P Anasarca with pedal edema, pleural effusion and ascites continue diuretics will check echo Pneumonia Images reviewed: Chest xray shows parenchymal consolidation in the right lower lung as well as a right-sided pleural effusion. -IV antibiotics Rocephin and Azithromycin -Consulted ID and pulmonary for recommendations -Awaiting records from [place] Abdominal pain/ Elevated LFTs/ Cholelithiasis Images reviewed: Abdominal xray shows Nonspecific bowel gas pattern and calcification right upper quadrant most likely representing a gallstone. Gall bladder US shows Cholelithiasis with mild gallbladder wall thickening. Moderate to large right effusion, and ascitic fluid in the right lower quadrant. -Consulted GI and general surgery for recommendations -Hepatitis profile ordered Aflutter with RVR EKG shows Aflutter with RVR -Consulted cardiology -Cont Cardizem drip -Monitor tele renal insufficiency with unknown duration -Consulted nephrology for recommendations -Trend CMP -Avoid nephrotoxic drugs Hyponatremia likely due to fluid overload -hold IV fluid DVT prophylaxis: Heparin consult PT tomorrow. Cierra Epperson MD Feb 01, 2017 09:00
[2017-02-01] MEDS: MULTIVITAMIN TAB PO SCH (09:24)
[2017-02-01] MEDS: BUMETANIDE INJ 1 MG/4 ML VIAL IV PUSH SCH ×2 (09:24→19:48)
[2017-02-01] MEDS: DILTIAZEM HCL 60 MG TAB PO SCH ×2 (09:24→13:18)
--- NOTE | 2017-02-01 10:06 | PD.ID.CON ---
History of Present Illness Service ID Consult Requested By / Reason for Consult Evaluation and Mment of Right side empyema, pneumonia. Primary Care Physician [facility] Diagnoses: History of Present Illness Mr. Torres is a 66 y/o CM with PMHx of DM, HTN, Hyperlipidemia and COPD who reports he was recently told he had fluid collection on right side of his lung and underwent thoracentesis. He does not think he was treated with any antibiotics. [facility] and he [facility] a CT chest which was abnormal. Patient was recommended immediate admission through ED. Patient did not want to be admitted so blood work was done. Once the labs were reported as abnormal he was sent to [facility] for further workup and evaluation. Patient reports that a day prior to admission he felt dizzy and lost his balance and fell. He denies loss of consciousness, but does have pain in the sacral region where he landed. He complains of a dry cough with no sputum production and increased swelling in his legs. He is also complaining of swelling and pain on the right side of his abdomen. He states he feels feverish but no documented temp. He denies any chest pain, chills, nausea, vomiting, constipation or diarrhea. He told other MDs he was on Lev[facility] but is unsure when he last took it. ID is consulted for evaluation and Mment of right side empyema and pneumonia. Review of Systems ROS Limitations: Poor Historian Constitutional: COMPLAINS OF: Fatigue, Weight loss, DENIES: Diaphoretic episodes, Fever, Weight gain, Chills, Dizziness, Change in appetite, Night Sweats Endocrine: DENIES: Heat/cold intolerance, Polydipsia, Polyuria, Polyphagia Eyes: DENIES: Blurred vision, Diplopia, Eye inflammation, Eye pain, Vision loss , Photosensitivity, Double Vision Ears, nose, mouth, throat: DENIES: Tinnitus, Hearing loss, Vertigo, Nasal discharge, Oral lesions, Throat pain, Hoarseness, Ear Pain, Running Nose, Epistaxis, Sinus Pain, Toothache, Odynophagia Respiratory: DENIES: Apneas, Cough, Snoring, Wheezing, Hemoptysis, Sputum production, Shortness of breath Cardiovascular: COMPLAINS OF: Lower Extremity Edema, DENIES: Chest pain, Palpitations, Syncope, Dyspnea on Exertion, PND, Orthopnea, Claudication Gastrointestinal: COMPLAINS OF: Nausea, DENIES: Abdominal pain, Black stools, Bloody stools, Constipation, Diarrhea, Vomiting, Difficulty Swallowing, Anorexia Genitourinary: DENIES: Sexual dysfunction, Urinary frequency, Urinary incontinence, Urgency, Hematuria, Dysuria, Nocturia, Penile Discharge, Testicular Pain, Testicular Swelling Musculoskeletal: DENIES: Joint pain, Muscle aches, Stiffness, Joint Swelling, Back pain, Neck pain Integumentary: DENIES: Abnormal pigmentation, Nail changes, Pruritus, Rash Hematologic/lymphatic: DENIES: Bruising, Lymphadenopathy Immunologic/allergic: DENIES: Eczema, Urticaria Neurologic: DENIES: Abnormal gait, Headache, Localized weakness, Paresthesias, Seizures, Speech Problems, Tremor, Poor Balance Psychiatric: DENIES: Anxiety, Confusion, Mood changes, Depression, Hallucinations, Agitation, Suicidal Ideation, Homicidal Ideation, Delusions Except as stated in HPI: all other systems reviewed are Neg Past Family Social History Allergies: Coded Allergies: Lisinopril (Verified Allergy, Intermediate, COUGH, 01/31/17) Past Medical History DM HTN Hyperlipidemia Chronic low back pain COPD Past Surgical History Denies any surgical history Reported Medications Reported Meds & Active Scripts Active Reported Multi Vitamin (Multiple Vitamin) 1 Tab Tab 1 Tab PO DAILY Atorvastatin (Atorvastatin Calcium) 40 Mg Tab 40 Mg PO HS Ventolin Hfa 18 GM Inh (Albuterol Sulfate) 90 Mcg/Act Aer 2 Puff INH Q4-6H PRN Active Ordered Medications Current Medications Medications (Trade) Dose Ordered Sig/Narda Route Start Time Stop Time Status Last Admin Diltiazem HCl 125 mg/Sodium Chloride 125 ml @ 0 mls/hr TITRATE IV 01/31/17 20:30 02/01/17 06:25 (NS 1000 ml Inj) 1,000 ml @ 40 mls/hr Q24H IV 01/31/17 20:27 Hold (Zofran Inj) 4 mg Q6H PRN IVP 01/31/17 20:30 (Milk Of Magnesia Liq) 30 ml Q12H PRN PO 01/31/17 20:30 Naloxone HCl 0.4 mg 0.4 mg UNSCH PRN IV 01/31/17 20:30 Ceftriaxone Sodium 1000 mg/ Sodium Chloride 100 ml @ 200 mls/hr Q12H IV 02/01/17 08:00 02/01/17 09:24 (Zithromax Inj/ NS 250 ml Inj) 250 ml @ 250 mls/hr Q24H IV 02/01/17 20:00 (Bumex Inj) 1 mg BID@09,18 IV PUSH 02/01/17 09:00 02/01/17 09:24 Miscellaneous Information Patient in critical care unit? Ass... Q361D XX 01/31/17 22:30 02/01/17 05:53 (Chlorhexidine 2% Cloth) 3 pack DAILY@04 TOP 02/01/17 04:00 02/05/17 04:01 02/01/17 05:53 (Chlorhexidine 2% Cloth) 3 pack UNSCH PRN TOP 01/31/17 22:30 02/05/17 22:29 (Lipitor) 40 mg HS PO 02/01/17 21:00 (Theragran) 1 tab DAILY PO 02/01/17 09:00 02/01/17 09:24 (Cardizem) 60 mg QID PO 02/01/17 09:00 02/01/17 13:18 (Heparin Inj) 5,000 units UNSCH PRN IV 02/01/17 15:00 Heparin Sodium (Porcine) 2500 units 2,500 units UNSCH PRN IV 02/01/17 15:00 (Heparin-D5W Inj) 250 ml @ 0 mls/hr TITRATE IV 02/01/17 09:00 02/01/17 11:18 (Apresoline Inj) 10 mg Q8H PRN IV PUSH 02/01/17 08:45 02/01/17 09:24 Family History reviewed and NC. No HTN, DM. Social History reviewed. Alcohol significant use on Fridays. [facility]. Smoked 1 ppd for 25 yrs, quit 3 yrs back. Occ marijuana. Physical Exam Vital Signs Vital Signs Date Time Temp Pulse Resp B/P Pulse Ox O2 Delivery O2 Flow Rate FiO2 02/01/17 06:00 110 02/01/17 04:00 97.8 117 18 163/81 96 02/01/17 04:00 117 02/01/17 02:00 122 02/01/17 00:00 97.8 128 20 119/89 97 02/01/17 00:00 128 01/31/17 23:00 127 01/31/17 22:22 97.9 127 24 115/71 99 01/31/17 20:09 105 18 134/70 96 Room Air 01/31/17 20:09 96 21 01/31/17 19:39 128 19 164/102 97 Room Air 01/31/17 15:40 97.7 128 17 134/88 99 Physical Exam GENERAL: This is a well-nourished, well-developed patient, in no apparent distress. SKIN: No rashes, ecchymoses or lesions. Cool and dry. HEAD: Atraumatic. Normocephalic. No temporal or scalp tenderness. EYES: Pupils equal round and reactive. Extraocular motions intact. No scleral icterus. No injection or drainage. ENT: Nose without bleeding, purulent drainage or septal hematoma. Throat without erythema, tonsillar hypertrophy or exudate. Uvula midline. Airway patent. NECK: Trachea midline. Supple, nontender, no meningeal signs. CARDIOVASCULAR: ? systolic murmur. RESPIRATORY: Clear to auscultation. Breath sounds decreased on right side. GASTROINTESTINAL: Abdomen soft, distended. MUSCULOSKELETAL: Extremities without clubbing, cyanosis. 1-2 + pedal edema. ? anasarca with abdominal wall edema as well. NEUROLOGICAL: Awake and alert. grossly non focal Psych: cooperative IV line sites with no e.o infection. Laboratory Laboratory Tests Test 01/31/17 01/31/17 01/31/17 02/01/17 18:40 21:32 22:15 06:07 White Blood Count 9.8 Red Blood Count 4.45 Hemoglobin 13.9 Hematocrit 42.2 Mean Corpuscular Volume 94.7 Mean Corpuscular Hemoglobin 31.3 Mean Corpuscular Hemoglobin 33.0 Concent Red Cell Distribution Width 18.8 Platelet Count 100 Mean Platelet Volume 9.9 Neutrophils (%) (Auto) 82.9 Lymphocytes (%) (Auto) 3.7 Monocytes (%) (Auto) 13.2 Eosinophils (%) (Auto) 0.0 Basophils (%) (Auto) 0.2 Neutrophils # (Auto) 8.1 Lymphocytes # (Auto) 0.4 Monocytes # (Auto) 1.3 Eosinophils # (Auto) 0.0 Basophils # (Auto) 0.0 CBC Comment DIFF FINAL Differential Comment Prothrombin Time 14.7 Prothromb Time International 1.3 Ratio Activated Partial 30.3 Thromboplast Time D-Dimer Quantitative (PE/DVT) 12.93 Sodium Level 122 Potassium Level 5.1 Chloride Level 87 Carbon Dioxide Level 22.8 Anion Gap 12 Blood Urea Nitrogen 70 Creatinine 2.47 Estimat Glomerular Filtration 26 Rate Random Glucose 123 Lactic Acid Level 2.5 1.8 Calcium Level 8.5 Magnesium Level 2.8 Total Bilirubin 4.7 Aspartate Amino Transf 67 (AST/SGOT) Alanine Aminotransferase 284 (ALT/SGPT) Alkaline Phosphatase 117 Total Creatine Kinase 155 Creatine Kinase MB 3.0 Troponin I LESS THAN 0.02 Total Protein 7.3 Albumin 3.0 Lipase 193 Urine Color PETER Urine Turbidity CLEAR Urine pH 5.5 Urine Specific Dille 1.019 Urine Protein 30 Urine Glucose (UA) NEG Urine Ketones NEG Urine Occult Blood NEG Urine Nitrite NEG Urine Bilirubin SMALL Urine Urobilinogen 4.0 Urine Leukocyte Esterase NEG Urine RBC 1 Urine WBC 1 Urine Squamous Epithelial <1 Cells Urine Bacteria OCC Urine Hyaline Casts 20 Urine Mucus FEW Microscopic Urinalysis Comment CULT NOT INDICATED Nasal Screen MRSA (PCR) NEGATIVE Test 02/01/17 06:09 White Blood Count 9.1 Red Blood Count 4.04 Hemoglobin 12.8 Hematocrit 37.7 Mean Corpuscular Volume 93.2 Mean Corpuscular Hemoglobin 31.6 Mean Corpuscular Hemoglobin 33.9 Concent Red Cell Distribution Width 18.3 Platelet Count 98 Mean Platelet Volume 9.2 Neutrophils (%) (Auto) 82.3 Lymphocytes (%) (Auto) 4.4 Monocytes (%) (Auto) 13.2 Eosinophils (%) (Auto) 0.0 Basophils (%) (Auto) 0.1 Neutrophils # (Auto) 7.5 Lymphocytes # (Auto) 0.4 Monocytes # (Auto) 1.2 Eosinophils # (Auto) 0.0 Basophils # (Auto) 0.0 CBC Comment AUTO DIFF Differential Comment AUTO DIFF CONFIRMED Platelet Estimate LOW Platelet Morphology Comment NORMAL Ovalocytes 1+ Prothrombin Time 15.4 Prothromb Time International 1.4 Ratio Sodium Level 128 Potassium Level 5.2 Chloride Level 91 Carbon Dioxide Level 23.5 Anion Gap 14 Blood Urea Nitrogen 68 Creatinine 2.22 Estimat Glomerular Filtration 30 Rate Random Glucose 132 Calcium Level 7.9 Total Bilirubin 3.6 Aspartate Amino Transf 52 (AST/SGOT) Alanine Aminotransferase 217 (ALT/SGPT) Alkaline Phosphatase 95 Total Protein 6.1 Albumin 2.5 Date/Time Procedure Status Source Growth 01/31/17 21:18 Aerobic Blood Culture Received Blood Peripheral Pending 01/31/17 21:18 Anaerobic Blood Culture Received Blood Peripheral Pending Result Diagram: 02/01/17 0609 02/01/17 0609 Imaging Last Impressions Chest X-Ray 01/31/171806 Signed Impressions: Service Date/Time: Tuesday, January 31, 2017 18:21 - CONCLUSION: There is parenchymal consolidation in the right lower lung as well as a right-sided pleural effusion. Cem Lee MD Abdomen X-Ray 01/31/171806 Signed Impressions: Service Date/Time: Tuesday, January 31, 2017 18:27 - CONCLUSION: 1. Nonspecific bowel gas pattern. 2. Calcification right upper quadrant most likely representing a gallstone. Cem Lee MD Gall Bladder Ultrasound 01/31/17 0000 Signed Impressions: Service Date/Time: Tuesday, January 31, 2017 20:24 - CONCLUSION: 1. Cholelithiasis with mild gallbladder wall thickening. 2. Moderate to large right effusion. 3. Ascitic fluid in the right lower quadrant. Jacbo Graham MD Assessment and Plan Assessment and Plan Possible Pneumonia Right side effusion : needs thoracentesis(infectious vs cardiopulm non infectious effusion) and possibly bronchoscopy. LV dilated, EF 20-25% cardiomyopathy. Tricuspid moderate regurgitation with dilatation of right atrium. Moderate mitral regurgitation with dilatation of left atrium. Right side abdomen ? ascitic fluid. GB enlarged on imaging but clinically no signs of tenderness, no fever. Anasarca: ? nutritional, ? component of cardiac issues. Abnormal LFTs: alcohol, ? cardiac. Acute renal failure: ? cardiac related low output state, ? was on lasix outpatient. Thrombocytopenia Recs: Agree with Pulm consult. Needs Thoracentesis for sure plus Bronchoscopy depending on CT findings. CT Chest non contrast (elevated Cr) CT Abd pelvis rule out ascites related fluid pockets if infection related and tracking to abdomen. US with abnormal GB findings but clinically no RUQ tenderness. Given cardiac history of new issues related to valvular insufficiency would not recommend abdominal surgery at present time. Please d.w Cardiology. Dc ceftriaxone (abnormal LFTs already) Start cefepime IV Continue Azithro for now. Legionella urine ag Pneumococcal urine ag. HIV antibody screen. Follow cultures Follow clinically. Edie Vega MD Feb 01, 2017 10:06 Edie Vega MD Feb 01, 2017 10:06
[2017-02-01 10:40] LABS: HEMATOCRIT 38.6 % (39.0-51.0); MEAN CELL VOLUME 94.3 FL (80.0-100.0); MEAN CORPUSCULAR HEMOGLOBIN 31.1 PG (27.0-34.0); PLATELET COUNT 104 TH/MM3 (150-450); RED CELL DISTRIBUTION WIDTH 18.3 % (11.6-17.2); REVIEW FLAG FINAL; WHITE BLOOD COUNT 9.3 TH/MM3 (4.0-11.0)
[2017-02-01 10:45] LABS: APTT (PATIENT) 30.6 SEC (24.3-30.1); INTERNATIONAL NORMALIZED RATIO 1.4 RATIO; PROTHROMBIN TIME - PATIENT 15.4 SEC (9.8-11.6)
[2017-02-01] MEDS: HEPARIN-D5W INJ 250 ML IV SCH (11:18)
--- NOTE | 2017-02-01 12:20 | MB ---
cc: WILLY KERNS MD DATE OF CONSULTATION 02/01/2017 REASON FOR CONSULTATION Atrial fibrillation HISTORY OF PRESENT ILLNESS Mr. Torres is a 66-year-old man who does have a reported history of hypertension, but otherwise denies any cardiac history. The patient was apparently experiencing shortness of breath and generalized weakness and [facility] 50 pound [facility] loss and apparently abnormal CT. Again from a cardiac perspective, other than the dyspnea, he is asymptomatic and specifically denies any chest pain. PAST MEDICAL HISTORY His past medical history does include: 1. Hypertension 2. Diabetes 3. Hyperlipidemia 4. He does also have COPD and chronic low back pain. MEDICATIONS His outpatient medications include: 1. Ventolin 2. Atorvastatin FAMILY HISTORY Negative for CAD. SOCIAL HISTORY The patient is a former smoker. REVIEW OF SYSTEMS Except what is mentioned in HPI, all 12 systems are negative. PHYSICAL EXAMINATION Current vital signs are 110, 18, 119/89. GENERAL: He is a well-appearing man who is in no apparent distress. NECK: His neck is free from JVD. LUNGS: The lungs are decreased, but clear to auscultation. CARDIOVASCULAR: On examination, he has a normal S1 and S2. The rhythm is irregularly irregular. EXTREMITIES: The extremities do have 1-2+ edema. LABORATORY VALUES Significant for a hemoglobin of 12.8. An initial sodium of 122 which is 128 today, potassium of 5.2, creatinine of 2.0. His AST is 52, ALT 27 and troponin is less than 0.02. Telemetry shows atrial fibrillation. IMPRESSION Atrial fibrillation - The patient has new onset atrial fibrillation. He has fair rate control on the IV Cardizem. I will try and change him over to the p.o. At this point, he will continue with conservative medical management. I would check an echo. I did inform him that when he is stabilized later as an outpatient, the [facility] may [facility] to [facility] him. He is not a revascularization candidate with a multitude of other problems. The patient's CHADS-VASc score she has a point for hypertension and possibly for diabetes. He did not give me the history of diabetes, but his sugars are certainly elevated here. This would suggest he would benefit from long-term anticoagulation. This would have to be weighed against the other issues with his acute renal and hepatic insufficiency and an elevated INR at 1.4. Pneumonia - This is being managed by the primary team. Acute renal insufficiency - This is being managed by the primary team. Elevated LFTs - We will use caution with his p.o. medications. Hyponatremia - This is being managed by primary team. Ryan Tejeda/DJAmado /7:47 AM /11:06 AM
--- NOTE | 2017-02-01 12:45 | EC ---
Study Study Date:02/01/2017 STUDY CONCLUSIONS SUMMARY - Left ventricle: The cavity size was dilated. Wall thickness was normal. Systolic function was severely reduced by visual assessment. The estimated ejection fraction was in the range of 20% to 25%. Diffuse hypokinesis. - Aortic valve: Valve area: 1.92cm^2 (Vmax). - Mitral valve: Moderate regurgitation directed eccentrically and posteriorly. - Left atrium: The atrium was mildly dilated. - Right atrium: The atrium was mildly dilated. - Tricuspid valve: Mild-moderate regurgitation. If LV function is below 40, please consider prescribing an ACEI or ARB or document rationale for non-use. PROCEDURE DATA STUDY STATUS: Elective. Procedure: Transthoracic echocardiography. Image quality was good. Scanning was performed from the parasternal, apical, and subcostal acoustic windows. Study completion: The patient tolerated the procedure well. Transthoracic echocardiography. M-mode, complete 2D, complete spectral Doppler, and color Doppler. Height: Height: 76in. Weight: Weight: 207.6lb. Body mass index: BMI: 25.3kg/m^2. Body surface area: BSA: 2.25m^2. Patient status: Inpatient. CARDIAC ANATOMY LEFT VENTRICLE: The cavity size was dilated. Wall thickness was normal. Systolic function was severely reduced by visual assessment. The estimated ejection fraction was in the range of 20% to 25%. Diffuse hypokinesis. AORTIC VALVE: Trileaflet; normal thickness leaflets. Doppler: Transvalvular velocity was within the normal range. There was no stenosis. No regurgitation. Valve area: 1.92cm^2 (Vmax). Indexed valve area: 0.85cm^2/m^2 (Vmax). AORTA: Aortic root: The aortic root was normal in size. MITRAL VALVE: Structurally normal valve. Doppler: Transvalvular velocity was within the normal range. There was no evidence for stenosis. Moderate regurgitation directed eccentrically and posteriorly. Valve area by pressure half-time: 5.24cm^2. Indexed valve area by pressure half-time: 2.33cm^2/m^2. Mean gradient: 88mm Hg (D). Peak gradient: 159mm Hg (D). LEFT ATRIUM: The atrium was mildly dilated. RIGHT VENTRICLE: The cavity size was normal. Wall thickness was normal. PULMONIC VALVE: Doppler: Transvalvular velocity was within the normal range. There was no evidence for stenosis. No regurgitation. TRICUSPID VALVE: Structurally normal valve. Doppler: Transvalvular velocity was within the normal range. Mild-moderate regurgitation. Peak gradient: 22mm Hg (D). PULMONARY ARTERY: The main pulmonary artery was normal-sized. Systolic pressure could not be accurately estimated. RIGHT ATRIUM: The atrium was mildly dilated. PERICARDIUM: There was no pericardial effusion. SYSTEMIC VEINS: Inferior vena cava: The vessel was normal in size. Patient weight: 207.6lb _Ejection fraction:_ 65-75% _Fractional shortening:_ 32% up to 5Kg 5-11.5Kg 11.6-22.9Kg 23-45Kg 45-57Kg Aortic Root 7-13 <17 13-22 17-27 17-27 LA diam 6-13 <23 24-38 33-47 37-40 RVID 10-17 7-15 7-15 7-18 8-17 LVIDd 12-22 <32 24-38 33-47 37-40 LVPW 2-4 3-6 5-7 6-8 7-8 IVS 2-4 3-6 5-7 6-8 7-8 BASIC MEASUREMENTS ADULT NORMAL Left ventricle LV internal dimension, ED, chordal *57.6 mm 43-52 level, PLAX LV internal dimension, ES, chordal *45 mm 23-38 level, PLAX Fractional shortening, chordal level, *22 % >29 PLAX LV posterior wall thickness, ED 11.7 mm IVS/LVPW ratio, ED 1 <1.3 Volume, ED, MOD, 1-plane 150 ml Volume, ES, MOD, 1-plane 127 ml Ejection fraction, MOD, 1-plane 15 % Stroke volume, MOD, 1-plane 23 ml Volume index, ED, MOD, 1-plane 67 ml/m^2 Volume index, ES, MOD, 1-plane 56 ml/m^2 Stroke index, MOD, 1-plane 10.2 ml/m^2 Ventricular septum Septal thickness, ED 11.7 mm Aortic valve Leaflet separation 17 mm 15-26 Left atrium Anterior-posterior dimension 39 mm Anterior-posterior dimension index 1.73 cm/m^2 <2.2 Right ventricle RV internal dimension, ED, PLAX *43.1 mm 19-38 BASIC MEASUREMENTS ADULT NORMAL Aortic valve Leaflet separation 17 mm 15-26 Aorta Root diameter, ED 30 mm 20-37 DOPPLER MEASUREMENTS ADULT NORMAL Aortic valve Peak velocity, S 119 cm/s VTI, S 153 cm Valve area, Vmax 1.92 cm^2 Valve area index, Vmax 0.85 cm^2/m^2 Mitral valve Mean velocity, D 437 cm/s Pressure half-time 42 ms Mean gradient, D 88 mm Hg Peak gradient, D 159 mm Hg Valve area, pressure half-time 5.24 cm^2 Valve area index, pressure half-time 2.33 cm^2/m^2 Tricuspid valve Peak gradient, D 22 mm Hg Maximal inflow velocity 233 cm/s Systemic veins Estimated CVP 10 mm Hg LEGEND: Mean values are shown as u=mean value. Asterisk (*) altamirano values outside specified normal range. Prepared and signed by Matt Case [id number]
--- NOTE | 2017-02-01 13:52 | PD.CONS ---
HPI History of Present Illness This is a 66 year old male who was admitted for c/o of dizziness, pain and swelling on right side of abdomen, dry cough. He states he had a procedure done at the [place] 3 weeks ago where fluid was drained from his lungs. On admission liver enzymes were found to be elevated with today's labs showing a Bilirubin of 3.6, AST 52, ALt 217, Alk phos of 95. He denies nausea or vomiting has never had an EGD or colonoscopy and does not want to have a colonoscopy done. He denies nausea or vomiting, no skin itching. An US of the gallbladder showed cholelithiasis with mild gallbladder wall thickening, ascitic fluid in right lower quadrant and a moderate to large right effusion.He states he had a CT scan at the [place] and was advised to go directly to the hospital. (Karely Greer) PFSH Past Medical History DM HTN Hyperlipidemia Chronic low back pain COPD Past Surgical History Denies any surgical history had a recent thoracentesis (Karely Greer) Coded Allergies: Lisinopril (Verified Allergy, Intermediate, COUGH, 01/31/17) Medications Reported Meds & Active Scripts Active Reported Multi Vitamin (Multiple Vitamin) 1 Tab Tab 1 Tab PO DAILY Atorvastatin (Atorvastatin Calcium) 40 Mg Tab 40 Mg PO HS Ventolin Hfa 18 GM Inh (Albuterol Sulfate) 90 Mcg/Act Aer 2 Puff INH Q4-6H PRN Family History Patient denies any family history including heart disease and DM. Social History Tobacco use: quit 3 years ago, prior to this he smokes 1 ppd for 25 years Alcohol use: Only on Fridays Illicit drug use: Marijuana use, none for the past 2 months (Karely Greer ) Review of Systems Gastrointestinal: COMPLAINS OF: Abdominal pain, Swelling of Abdomen (Karely Greer) GI Exam Vitals I&O Vital Signs Date Time Temp Pulse Resp B/P Pulse Ox O2 Delivery O2 Flow Rate FiO2 02/01/17 10:00 110 02/01/17 08:00 97.9 109 21 154/128 95 02/01/17 08:00 109 02/01/17 06:00 110 02/01/17 04:00 97.8 117 18 163/81 96 02/01/17 04:00 117 02/01/17 02:00 122 02/01/17 00:00 97.8 128 20 119/89 97 02/01/17 00:00 128 01/31/17 23:00 127 01/31/17 22:22 97.9 127 24 115/71 99 01/31/17 20:09 105 18 134/70 96 Room Air 01/31/17 20:09 96 21 01/31/17 19:39 128 19 164/102 97 Room Air 01/31/17 15:40 97.7 128 17 134/88 99 I/O 01/31/17 01/31/17 01/31/17 02/01/17 02/01/17 02/01/17 07:00 15:00 23:00 07:00 15:00 23:00 Intake Total 262 ml 2116 ml Output Total 0 ml 240 ml Balance 262 ml 1876 ml Intake Oral 0 ml 800 ml IV Total 262 ml 1316 ml Output Urine Total 0 ml 240 ml # Bowel Movements 0 0 Imaging Last Impressions Chest X-Ray 01/31/171806 Signed Impressions: Service Date/Time: Tuesday, January 31, 2017 18:21 - CONCLUSION: There is parenchymal consolidation in the right lower lung as well as a right-sided pleural effusion. Cem Lee MD Abdomen X-Ray 01/31/171806 Signed Impressions: Service Date/Time: Tuesday, January 31, 2017 18:27 - CONCLUSION: 1. Nonspecific bowel gas pattern. 2. Calcification right upper quadrant most likely representing a gallstone. Cem Lee MD Gall Bladder Ultrasound 01/31/17 0000 Signed Impressions: Service Date/Time: Tuesday, January 31, 2017 20:24 - CONCLUSION: 1. Cholelithiasis with mild gallbladder wall thickening. 2. Moderate to large right effusion. 3. Ascitic fluid in the right lower quadrant. Jacob Graham MD Laboratory Test 01/31/17 01/31/17 01/31/17 02/01/17 18:40 21:32 22:15 06:07 White Blood Count 9.8 TH/MM3 Red Blood Count 4.45 MIL/MM3 Hemoglobin 13.9 GM/DL Hematocrit 42.2 % Mean Corpuscular Volume 94.7 FL Mean Corpuscular Hemoglobin 31.3 PG Mean Corpuscular Hemoglobin 33.0 % Concent Red Cell Distribution Width 18.8 % Platelet Count 100 TH/MM3 Mean Platelet Volume 9.9 FL Neutrophils (%) (Auto) 82.9 % Lymphocytes (%) (Auto) 3.7 % Monocytes (%) (Auto) 13.2 % Eosinophils (%) (Auto) 0.0 % Basophils (%) (Auto) 0.2 % Neutrophils # (Auto) 8.1 TH/MM3 Lymphocytes # (Auto) 0.4 TH/MM3 Monocytes # (Auto) 1.3 TH/MM3 Eosinophils # (Auto) 0.0 TH/MM3 Basophils # (Auto) 0.0 TH/MM3 CBC Comment DIFF FINAL Differential Comment Prothrombin Time 14.7 SEC Prothromb Time International 1.3 RATIO Ratio Activated Partial 30.3 SEC Thromboplast Time D-Dimer Quantitative (PE/DVT) 12.93 MG/L FEU Sodium Level 122 MEQ/L Potassium Level 5.1 MEQ/L Chloride Level 87 MEQ/L Carbon Dioxide Level 22.8 MEQ/L Anion Gap 12 MEQ/L Blood Urea Nitrogen 70 MG/DL Creatinine 2.47 MG/DL Estimat Glomerular Filtration 26 ML/MIN Rate Random Glucose 123 MG/DL Lactic Acid Level 2.5 mmol/L 1.8 mmol/L Calcium Level 8.5 MG/DL Magnesium Level 2.8 MG/DL Total Bilirubin 4.7 MG/DL Aspartate Amino Transf 67 U/L (AST/SGOT) Alanine Aminotransferase 284 U/L (ALT/SGPT) Alkaline Phosphatase 117 U/L Total Creatine Kinase 155 U/L Creatine Kinase MB 3.0 NG/ML Troponin I LESS THAN 0.02 NG/ML Total Protein 7.3 GM/DL Albumin 3.0 GM/DL Lipase 193 U/L Urine Color PETER Urine Turbidity CLEAR Urine pH 5.5 Urine Specific [place] 1.019 Urine Protein 30 mg/dL Urine Glucose (UA) NEG mg/dL Urine Ketones NEG mg/dL Urine Occult Blood NEG Urine Nitrite NEG Urine Bilirubin SMALL Urine Urobilinogen 4.0 MG/DL Urine Leukocyte Esterase NEG Urine RBC 1 /hpf Urine WBC 1 /hpf Urine Squamous Epithelial <1 /hpf Cells Urine Bacteria OCC /hpf Urine Hyaline Casts 20 /lpf Urine Mucus FEW /lpf Microscopic Urinalysis Comment CULT NOT INDICATED Nasal Screen MRSA (PCR) NEGATIVE Test 02/01/17 02/01/17 06:09 10:05 White Blood Count 9.1 TH/MM3 9.3 TH/MM3 Red Blood Count 4.04 MIL/MM3 4.10 MIL/MM3 Hemoglobin 12.8 GM/DL 12.8 GM/DL Hematocrit 37.7 % 38.6 % Mean Corpuscular Volume 93.2 FL 94.3 FL Mean Corpuscular Hemoglobin 31.6 PG 31.1 PG Mean Corpuscular Hemoglobin 33.9 % 33.0 % Concent Red Cell Distribution Width 18.3 % 18.3 % Platelet Count 98 TH/MM3 104 TH/MM3 Mean Platelet Volume 9.2 FL 9.7 FL Neutrophils (%) (Auto) 82.3 % Lymphocytes (%) (Auto) 4.4 % Monocytes (%) (Auto) 13.2 % Eosinophils (%) (Auto) 0.0 % Basophils (%) (Auto) 0.1 % Neutrophils # (Auto) 7.5 TH/MM3 Lymphocytes # (Auto) 0.4 TH/MM3 Monocytes # (Auto) 1.2 TH/MM3 Eosinophils # (Auto) 0.0 TH/MM3 Basophils # (Auto) 0.0 TH/MM3 CBC Comment AUTO DIFF Differential Comment AUTO DIFF CONFIRMED Platelet Estimate LOW Platelet Morphology Comment NORMAL Ovalocytes 1+ Prothrombin Time 15.4 SEC 15.4 SEC Prothromb Time International 1.4 RATIO 1.4 RATIO Ratio Sodium Level 128 MEQ/L Potassium Level 5.2 MEQ/L Chloride Level 91 MEQ/L Carbon Dioxide Level 23.5 MEQ/L Anion Gap 14 MEQ/L Blood Urea Nitrogen 68 MG/DL Creatinine 2.22 MG/DL Estimat Glomerular Filtration 30 ML/MIN Rate Random Glucose 132 MG/DL Serum Osmolality 292 MOSM/KG Uric Acid 11.3 MG/DL Calcium Level 7.9 MG/DL Total Bilirubin 3.6 MG/DL Aspartate Amino Transf 52 U/L (AST/SGOT) Alanine Aminotransferase 217 U/L (ALT/SGPT) Alkaline Phosphatase 95 U/L Total Protein 6.1 GM/DL Albumin 2.5 GM/DL Activated Partial 30.6 SEC Thromboplast Time Date/Time Procedure Status Source Growth 01/31/17 21:18 Aerobic Blood Culture - Preliminary Resulted Blood Peripheral NO GROWTH IN 1 DAY 01/31/17 21:18 Anaerobic Blood Culture - Preliminary Resulted Blood Peripheral NO GROWTH IN 1 DAY Physical Examination HEENT: Pupils round and reactive to light; normocephalic; atraumatic; no jaundice. Throat is clear. NECK: Neck is supple, no JVD, no lymphadenopathy. CHEST: Chest is clear to auscultation and percussion. CARDIAC: Regular rate and rhythm with no murmur gallop or rubs. ABDOMEN: distended nontender, has an area of swelling on right flank area; no hepatosplenomegaly; bowel sounds are present in all four quadrants. EXTREMITIES: No clubbing, cyanosis, or edema. SKIN: Normal; no rash; no jaundice. BIG DATA SOFTWARE ENGINEER: No focal deficits; alert and oriented times three. (Karely Greer) Assessment and Plan Assessment: (1) Elevated LFTs (2) Abnormal gallbladder ultrasound Plan 66 year old male follows at [place] and had a recent thoracentesis has elevated LFT' s with bilirubin of 3.6, AST of 52, ALT of 217, Alk phos of 95. US of gallbladder was abnormal showing cholelithiasis with mild wall thickening. Will order an MRCP to rule out any obstruction, surgery was consulted per PCP. He has never had an EGD or colonoscopy and declines having a colonoscopy.He has a hx of ETOH use trying to cut back. Plan - MRCP -Order JAVAN, ASMA, AMA, AFP, Alpha 1 -antitrypsin, ferritin level and iron studies -Check results of hepatitis profile -Avoid hepatotoxic medications -LFT's in am -Supportive care -Further recommendations will follow Patient was seen and examined by Dr. Malave and myself, this consult is written on his behalf. (Karely Greer) Physician Comments Seen and examined with TANK CALIBRATOR, liver flower ordered. MRCP without gadolium if renal functions allow. Suspect LFT elevation due to CHF, and or meds. Doubt cholecystitis. Will follow. Thank you (Raghavendra Malave MD) Karely Greer Feb 01, 2017 13:52 Raghavendra Malave MD Feb 01, 2017 17:38
--- NOTE | 2017-02-01 14:48 | EKG ---
Date Performed: 01/31/2017 Time Performed: 18:37:35 PTAGE: 66 years EKG: ATRIAL FLUTTER/TACHYCARDIA WITH RAPID VENTRICULAR RESPONSE NONSPECIFIC ST & T-WAVE ABNORMAL ITY ABNORMAL ECG NO PREVIOUS TRACING DOCTOR: Charles Lozano Interpretating Date/Time 02/01/2017 14:40:50
[2017-02-01] MEDS ORDERED: HEPARIN SODIUM - IV 10,000 UNITS/10 ML VIAL IV PRN ×2 (15:00)
[2017-02-01] MEDS: CEFEPIME INJ 2,000 MG in SODIUM CHLORIDE 0.9% INJ 100 ML IV SCH (15:27)
--- NOTE | 2017-02-01 15:47 | PD.CONS ---
HPI Service General Surgery Consult Requested By Reason for Consult gallstone and wall thickening Primary Care Physician [facility] History of Present Illness Was 4.7 now down to 3.6. He had mild elevation of AST and ALP. This is a 66- year-old male with a fairly complicated medical history. [facility] and apparently had an abnormal chest CT as an outpatient and was told to come to the hospital. On evaluation here he was noted to be in atrial flutter with rapid ventricular response. He was diagnosed with pneumonia. A gallstone was seen on abdominal x-ray and a gallbladder ultrasound therefore ordered. There was a 17 mm gallstone with mild gallbladder wall thickening. The patient states that he has had some weakness shortness of breath decreased appetite and weight loss recently. He says he has very mild abdominal pain for 2-3 on the pain scale in the left midabdomen occasionally. He denies right upper quadrant pain. He had a right thoracentesis on December 24. The patient was evaluated in the emergency department and admitted to the hospital. He was noted to have normal white blood count but with 82% neutrophils. His bilirubin was 4.7 now down to 3.6. He had hyponatremia, hyperkalemia, elevated BUN/creatinine, low albumin. Echocardiogram was performed today which showed an ejection fraction of 20-25%. Hepatitis panel was negative. Gastroenterology has seen the patient and an MRCP has been ordered. I am asked to evaluate for possible cholecystitis. Review of Systems Constitutional: COMPLAINS OF: Fatigue, Weight loss, Change in appetite Eyes: DENIES: Eye inflammation, Eye pain Respiratory: COMPLAINS OF: Shortness of breath Cardiovascular: COMPLAINS OF: Lower Extremity Edema, DENIES: Chest pain Gastrointestinal: DENIES: Nausea, Vomiting Musculoskeletal: DENIES: Muscle aches, Stiffness Integumentary: DENIES: Pruritus, Rash Neurologic: DENIES: Headache, Localized weakness Past Family Social History Past Medical History Diabetes mellitus Hypertension COPD Hyperlipidemia GERD Past Surgical History Thoracentesis December 24 Reported Medications Reported Meds & Active Scripts Active Reported Multi Vitamin (Multiple Vitamin) 1 Tab Tab 1 Tab PO DAILY Atorvastatin (Atorvastatin Calcium) 40 Mg Tab 40 Mg PO HS Ventolin Hfa 18 GM Inh (Albuterol Sulfate) 90 Mcg/Act Aer 2 Puff INH Q4-6H PRN Allergies: Coded Allergies: Lisinopril (Verified Allergy, Intermediate, COUGH, 01/31/17) Active Ordered Medications Current Medications Medications (Trade) Dose Ordered Sig/Narda Route Start Time Stop Time Status Last Admin Diltiazem HCl 125 mg/Sodium Chloride 125 ml @ 0 mls/hr TITRATE IV 01/31/17 20:30 02/01/17 06:25 (NS 1000 ml Inj) 1,000 ml @ 40 mls/hr Q24H IV 01/31/17 20:27 Hold (Zofran Inj) 4 mg Q6H PRN IVP 01/31/17 20:30 (Milk Of Magnesia Liq) 30 ml Q12H PRN PO 01/31/17 20:30 Naloxone HCl 0.4 mg 0.4 mg UNSCH PRN IV 01/31/17 20:30 (Zithromax Inj/ NS 250 ml Inj) 250 ml @ 250 mls/hr Q24H IV 02/01/17 20:00 (Bumex Inj) 1 mg BID@,18 IV PUSH 02/01/17 09:00 02/01/17 09:24 Miscellaneous Information Patient in critical care unit? Ass... [id number] XX 01/31/17 22:30 02/01/17 05:53 (Chlorhexidine 2% Cloth) 3 pack DAILY@04 TOP 02/01/17 04:00 02/05/17 04:01 02/01/17 05:53 (Chlorhexidine 2% Cloth) 3 pack UNSCH PRN TOP 01/31/17 22:30 02/05/17 22:29 (Lipitor) 40 mg HS PO 02/01/17 21:00 (Theragran) 1 tab DAILY PO 02/01/17 09:00 02/01/17 09:24 (Cardizem) 60 mg QID PO 02/01/17 09:00 02/01/17 13:18 (Heparin Inj) 5,000 units UNSCH PRN IV 02/01/17 15:00 Heparin Sodium (Porcine) 2500 units 2,500 units UNSCH PRN IV 02/01/17 15:00 (Heparin-D5W Inj) 250 ml @ 0 mls/hr TITRATE IV 02/01/17 09:00 02/01/17 11:18 Hydralazine HCl 10 mg 10 mg Q8H PRN IV PUSH 02/01/17 08:45 02/01/17 09:24 (Maxipime Inj/NS Inj) 100 ml @ 200 mls/hr Q12H IV 02/01/17 15:00 02/01/17 15:27 Family History Noncontributory Social History No current tobacco use. No current drug use. Occasional alcohol use. Physical Exam Vital Signs Vital Signs Date Time Temp Pulse Resp B/P Pulse Ox O2 Delivery O2 Flow Rate FiO2 02/01/17 10:00 110 02/01/17 08:00 97.9 109 21 154/128 95 02/01/17 08:00 109 02/01/17 06:00 110 02/01/17 04:00 97.8 117 18 163/81 96 02/01/17 04:00 117 02/01/17 02:00 122 02/01/17 00:00 97.8 128 20 119/89 97 02/01/17 00:00 128 01/31/17 23:00 127 01/31/17 22:22 97.9 127 24 115/71 99 01/31/17 20:09 105 18 134/70 96 Room Air 01/31/17 20:09 96 21 01/31/17 19:39 128 19 164/102 97 Room Air 01/31/17 15:40 97.7 128 17 134/88 99 Physical Exam GENERAL: Awake and alert. Appears chronically ill. Tired. HEAD: Normocephalic. Atraumatic. EYES: Pupils equal round and reactive to light bilaterally. NECK: Trachea midline. CHEST: Lungs clear to auscultation bilaterally with no wheezing or rhonchi. No respiratory distress. CARDIOVASCULAR: Tachycardia ABDOMEN: Mild tenderness to palpation in the left mid abdomen. Nontender in the right upper quadrant. Questionable hepatomegaly. EXTREMITIES: Massive bilateral pitting edema SKIN: Cool, pale, nonjaundiced. Laboratory Laboratory Tests Test 01/31/17 01/31/17 01/31/17 02/01/17 18:40 21:32 22:15 06:07 White Blood Count 9.8 Red Blood Count 4.45 Hemoglobin 13.9 Hematocrit 42.2 Mean Corpuscular Volume 94.7 Mean Corpuscular Hemoglobin 31.3 Mean Corpuscular Hemoglobin 33.0 Concent Red Cell Distribution Width 18.8 Platelet Count 100 Mean Platelet Volume 9.9 Neutrophils (%) (Auto) 82.9 Lymphocytes (%) (Auto) 3.7 Monocytes (%) (Auto) 13.2 Eosinophils (%) (Auto) 0.0 Basophils (%) (Auto) 0.2 Neutrophils # (Auto) 8.1 Lymphocytes # (Auto) 0.4 Monocytes # (Auto) 1.3 Eosinophils # (Auto) 0.0 Basophils # (Auto) 0.0 CBC Comment DIFF FINAL Differential Comment Prothrombin Time 14.7 Prothromb Time International 1.3 Ratio Activated Partial 30.3 Thromboplast Time D-Dimer Quantitative (PE/DVT) 12.93 Sodium Level 122 Potassium Level 5.1 Chloride Level 87 Carbon Dioxide Level 22.8 Anion Gap 12 Blood Urea Nitrogen 70 Creatinine 2.47 Estimat Glomerular Filtration 26 Rate Random Glucose 123 Lactic Acid Level 2.5 1.8 Calcium Level 8.5 Magnesium Level 2.8 Total Bilirubin 4.7 Aspartate Amino Transf 67 (AST/SGOT) Alanine Aminotransferase 284 (ALT/SGPT) Alkaline Phosphatase 117 Total Creatine Kinase 155 Creatine Kinase MB 3.0 Troponin I LESS THAN 0.02 Total Protein 7.3 Albumin 3.0 Lipase 193 Urine Color PETER Urine Turbidity CLEAR Urine pH 5.5 Urine Specific [place] 1.019 Urine Protein 30 Urine Glucose (UA) NEG Urine Ketones NEG Urine Occult Blood NEG Urine Nitrite NEG Urine Bilirubin SMALL Urine Urobilinogen 4.0 Urine Leukocyte Esterase NEG Urine RBC 1 Urine WBC 1 Urine Squamous Epithelial <1 Cells Urine Bacteria OCC Urine Hyaline Casts 20 Urine Mucus FEW Microscopic Urinalysis Comment CULT NOT INDICATED Nasal Screen MRSA (PCR) NEGATIVE Test 02/01/17 02/01/17 06:09 10:05 White Blood Count 9.1 9.3 Red Blood Count 4.04 4.10 Hemoglobin 12.8 12.8 Hematocrit 37.7 38.6 Mean Corpuscular Volume 93.2 94.3 Mean Corpuscular Hemoglobin 31.6 31.1 Mean Corpuscular Hemoglobin 33.9 33.0 Concent Red Cell Distribution Width 18.3 18.3 Platelet Count 98 104 Mean Platelet Volume 9.2 9.7 Neutrophils (%) (Auto) 82.3 Lymphocytes (%) (Auto) 4.4 Monocytes (%) (Auto) 13.2 Eosinophils (%) (Auto) 0.0 Basophils (%) (Auto) 0.1 Neutrophils # (Auto) 7.5 Lymphocytes # (Auto) 0.4 Monocytes # (Auto) 1.2 Eosinophils # (Auto) 0.0 Basophils # (Auto) 0.0 CBC Comment AUTO DIFF Differential Comment AUTO DIFF CONFIRMED Platelet Estimate LOW Platelet Morphology Comment NORMAL Ovalocytes 1+ Prothrombin Time 15.4 15.4 Prothromb Time International 1.4 1.4 Ratio Sodium Level 128 Potassium Level 5.2 Chloride Level 91 Carbon Dioxide Level 23.5 Anion Gap 14 Blood Urea Nitrogen 68 Creatinine 2.22 Estimat Glomerular Filtration 30 Rate Random Glucose 132 Serum Osmolality 292 Uric Acid 11.3 Calcium Level 7.9 Total Bilirubin 3.6 Aspartate Amino Transf 52 (AST/SGOT) Alanine Aminotransferase 217 (ALT/SGPT) Alkaline Phosphatase 95 Total Protein 6.1 Albumin 2.5 Hepatitis A IgM Antibody NEGATIVE Hepatitis B Surface Antigen NEGATIVE Hepatitis B Core IgM Antibody NEGATIVE Hepatitis C Antibody NEGATIVE Activated Partial 30.6 Thromboplast Time Date/Time Procedure Status Source Growth 01/31/17 21:18 Aerobic Blood Culture - Preliminary Resulted Blood Peripheral NO GROWTH IN 1 DAY 01/31/17 21:18 Anaerobic Blood Culture - Preliminary Resulted Blood Peripheral NO GROWTH IN 1 DAY Result Diagram: 02/01/17 1005 02/01/17 0609 Imaging Last Impressions Chest X-Ray 01/31/171806 Signed Impressions: Service Date/Time: Tuesday, January 31, 2017 18:21 - CONCLUSION: There is parenchymal consolidation in the right lower lung as well as a right-sided pleural effusion. Cem Lee MD Abdomen X-Ray 01/31/171806 Signed Impressions: Service Date/Time: Tuesday, January 31, 2017 18:27 - CONCLUSION: 1. Nonspecific bowel gas pattern. 2. Calcification right upper quadrant most likely representing a gallstone. Cem Lee MD Gall Bladder Ultrasound 01/31/17 0000 Signed Impressions: Service Date/Time: Tuesday, January 31, 2017 20:24 - CONCLUSION: 1. Cholelithiasis with mild gallbladder wall thickening. 2. Moderate to large right effusion. 3. Ascitic fluid in the right lower quadrant. Jacob Graham MD Assessment and Plan Assessment and Plan 66-year-old male appears chronically ill with atrial flutter with rapid ventricular response, right pleural effusion, recent thoracentesis. He has elevated liver function enzymes especially bilirubin. Gallstone with mild wall thickening found on gallbladder ultrasound. I think the patient's symptoms and findings are secondary to congestive heart failure. He is not significantly tender in the right upper quadrant he denies right upper quadrant pain. He may have hepatic congestion causing elevation in his liver function tests. I will f/u on MRCP resuts but I do not recommend surgery at this time. I also do not think he would benefit from a cholecystostomy tube. Andrzej,Andrez SANCHEZ Feb 01, 2017 15:47
[2017-02-01 16:02] LABS: APTT (PATIENT) 86.5 SEC (24.3-30.1)
--- NOTE | 2017-02-01 16:19 | PD.CONS ---
[facility] Service Nephrology Consult Requested By Christin Reason for Consult Acute renal failure Primary Care Physician [facility] History of Present Illness This is a 66 y/o male who was sent in for evaluation of renal failure that was discovered in lab work at the [facility]. He says he looked ill and did not feel well for a few days. PMH of Hyperlipidemia, COPD (smoking hx) and DM II, he is unsure of his medical history. On arrival, his creatinine was 2.47 which has improved to 2.22 today. He was also noted to have sodium of 122 that improved to 128. He was in A fib with RVR that was new, placed on cardizem gtt and cardiology has been consulted. He also has PNA, is on Rocephin and Zithromax, and ID has been consulted. Imaging revealed gallstones therefore GI and surgery have been consulted. He is having an echocardiogram during my exam. Awake, alert , tachycardia persists, but he is not short of breath. We were consulted for renal failure. Of not he was placed on metformin 2 months ago. He had thoracentesis on right 6 weeks ago at the [facility]. Labs also showing thrombocytopenia and elevated LFTs. (Marsha Degroot) Review of Systems Constitutional: COMPLAINS OF: Fatigue, Weight gain Cardiovascular: COMPLAINS OF: Palpitations, Lower Extremity Edema, DENIES: Chest pain (Marsha Degroot) Past Family Social History Allergies: Coded Allergies: Lisinopril (Verified Allergy, Intermediate, COUGH, 01/31/17) Past Medical History DM II on metformin HTN Hyperlipidemia Chronic low back pain COPD Past Surgical History Thoracentesis Reported Medications Multi Vitamin (Multiple Vitamin) 1 Tab Tab 1 Tab PO DAILY Atorvastatin (Atorvastatin Calcium) 40 Mg Tab 40 Mg PO HS Ventolin Hfa 18 GM Inh (Albuterol Sulfate) 90 Mcg/Act Aer 2 Puff INH Q4-6H PRN Metformin, unknown dosage Active Ordered Medications Current Medications Medications (Trade) Dose Ordered Sig/Narda Route Start Time Stop Time Status Last Admin Diltiazem HCl 125 mg/Sodium Chloride 125 ml @ 0 mls/hr TITRATE IV 01/31/17 20:30 02/01/17 06:25 (NS 1000 ml Inj) 1,000 ml @ 40 mls/hr Q24H IV 01/31/17 20:27 Hold (Zofran Inj) 4 mg Q6H PRN IVP 01/31/17 20:30 (Milk Of Magnesia Liq) 30 ml Q12H PRN PO 01/31/17 20:30 Naloxone HCl 0.4 mg 0.4 mg UNSCH PRN IV 01/31/17 20:30 (Zithromax Inj/ NS 250 ml Inj) 250 ml @ 250 mls/hr Q24H IV 02/01/17 20:00 (Bumex Inj) 1 mg BID@09,18 IV PUSH 02/01/17 09:00 02/01/17 09:24 Miscellaneous Information Patient in critical care unit? Ass... [id number] XX 01/31/17 22:30 02/01/17 05:53 (Chlorhexidine 2% Cloth) 3 pack DAILY@04 TOP 02/01/17 04:00 02/05/17 04:01 02/01/17 05:53 (Chlorhexidine 2% Cloth) 3 pack UNSCH PRN TOP 01/31/17 22:30 02/05/17 22:29 (Lipitor) 40 mg HS PO 02/01/17 21:00 (Theragran) 1 tab DAILY PO 02/01/17 09:00 02/01/17 09:24 (Cardizem) 60 mg QID PO 02/01/17 09:00 02/01/17 13:18 (Heparin Inj) 5,000 units UNSCH PRN IV 02/01/17 15:00 Heparin Sodium (Porcine) 2500 units 2,500 units UNSCH PRN IV 02/01/17 15:00 (Heparin-D5W Inj) 250 ml @ 0 mls/hr TITRATE IV 02/01/17 09:00 02/01/17 11:18 Hydralazine HCl 10 mg 10 mg Q8H PRN IV PUSH 02/01/17 08:45 02/01/17 09:24 (Maxipime Inj/NS Inj) 100 ml @ 200 mls/hr Q12H IV 02/01/17 15:00 02/01/17 15:27 Family History No hx of renal disorders Social History Former smoker, quit 4-5 weeks ago; 13 pk year hx Drinks ETOH on Fridays, 8 drinks smokes Marijuana [place] retired lives alone, single independent with ADLS full code (Marsha Degroot) Physical Exam Vital Signs Vital Signs Date Time Temp Pulse Resp B/P Pulse Ox O2 Delivery O2 Flow Rate FiO2 02/01/17 10:00 110 02/01/17 08:00 97.9 109 21 154/128 95 02/01/17 08:00 109 02/01/17 06:00 110 02/01/17 04:00 97.8 117 18 163/81 96 02/01/17 04:00 117 02/01/17 02:00 122 02/01/17 00:00 97.8 128 20 119/89 97 02/01/17 00:00 128 01/31/17 23:00 127 01/31/17 22:22 97.9 127 24 115/71 99 01/31/17 20:09 105 18 134/70 96 Room Air 01/31/17 20:09 96 21 01/31/17 19:39 128 19 164/102 97 Room Air Physical Exam Disheveled middle aged male awake, alert/oriented having echo during my exam no neuro deficit S1/S2, irreg irreg no murmurs lungs: diminished in bases, dull on right, scattered rales abd: soft, obese, non tender lower ext: 2-3+ pitting Laboratory Laboratory Tests Test 01/31/17 01/31/17 01/31/17 02/01/17 18:40 21:32 22:15 06:07 White Blood Count 9.8 Red Blood Count 4.45 Hemoglobin 13.9 Hematocrit 42.2 Mean Corpuscular Volume 94.7 Mean Corpuscular Hemoglobin 31.3 Mean Corpuscular Hemoglobin 33.0 Concent Red Cell Distribution Width 18.8 Platelet Count 100 Mean Platelet Volume 9.9 Neutrophils (%) (Auto) 82.9 Lymphocytes (%) (Auto) 3.7 Monocytes (%) (Auto) 13.2 Eosinophils (%) (Auto) 0.0 Basophils (%) (Auto) 0.2 Neutrophils # (Auto) 8.1 Lymphocytes # (Auto) 0.4 Monocytes # (Auto) 1.3 Eosinophils # (Auto) 0.0 Basophils # (Auto) 0.0 CBC Comment DIFF FINAL Differential Comment Prothrombin Time 14.7 Prothromb Time International 1.3 Ratio Activated Partial 30.3 Thromboplast Time D-Dimer Quantitative (PE/DVT) 12.93 Sodium Level 122 Potassium Level 5.1 Chloride Level 87 Carbon Dioxide Level 22.8 Anion Gap 12 Blood Urea Nitrogen 70 Creatinine 2.47 Estimat Glomerular Filtration 26 Rate Random Glucose 123 Lactic Acid Level 2.5 1.8 Calcium Level 8.5 Magnesium Level 2.8 Total Bilirubin 4.7 Aspartate Amino Transf 67 (AST/SGOT) Alanine Aminotransferase 284 (ALT/SGPT) Alkaline Phosphatase 117 Total Creatine Kinase 155 Creatine Kinase MB 3.0 Troponin I LESS THAN 0.02 Total Protein 7.3 Albumin 3.0 Lipase 193 Urine Color PETER Urine Turbidity CLEAR Urine pH 5.5 Urine Specific [place] 1.019 Urine Protein 30 Urine Glucose (UA) NEG Urine Ketones NEG Urine Occult Blood NEG Urine Nitrite NEG Urine Bilirubin SMALL Urine Urobilinogen 4.0 Urine Leukocyte Esterase NEG Urine RBC 1 Urine WBC 1 Urine Squamous Epithelial <1 Cells Urine Bacteria OCC Urine Hyaline Casts 20 Urine Mucus FEW Microscopic Urinalysis Comment CULT NOT INDICATED Nasal Screen MRSA (PCR) NEGATIVE Test 02/01/17 02/01/17 06:09 10:05 White Blood Count 9.1 9.3 Red Blood Count 4.04 4.10 Hemoglobin 12.8 12.8 Hematocrit 37.7 38.6 Mean Corpuscular Volume 93.2 94.3 Mean Corpuscular Hemoglobin 31.6 31.1 Mean Corpuscular Hemoglobin 33.9 33.0 Concent Red Cell Distribution Width 18.3 18.3 Platelet Count 98 104 Mean Platelet Volume 9.2 9.7 Neutrophils (%) (Auto) 82.3 Lymphocytes (%) (Auto) 4.4 Monocytes (%) (Auto) 13.2 Eosinophils (%) (Auto) 0.0 Basophils (%) (Auto) 0.1 Neutrophils # (Auto) 7.5 Lymphocytes # (Auto) 0.4 Monocytes # (Auto) 1.2 Eosinophils # (Auto) 0.0 Basophils # (Auto) 0.0 CBC Comment AUTO DIFF Differential Comment AUTO DIFF CONFIRMED Platelet Estimate LOW Platelet Morphology Comment NORMAL Ovalocytes 1+ Prothrombin Time 15.4 15.4 Prothromb Time International 1.4 1.4 Ratio Sodium Level 128 Potassium Level 5.2 Chloride Level 91 Carbon Dioxide Level 23.5 Anion Gap 14 Blood Urea Nitrogen 68 Creatinine 2.22 Estimat Glomerular Filtration 30 Rate Random Glucose 132 Serum Osmolality 292 Uric Acid 11.3 Calcium Level 7.9 Total Bilirubin 3.6 Aspartate Amino Transf 52 (AST/SGOT) Alanine Aminotransferase 217 (ALT/SGPT) Alkaline Phosphatase 95 Total Protein 6.1 Albumin 2.5 Hepatitis A IgM Antibody NEGATIVE Hepatitis B Surface Antigen NEGATIVE Hepatitis B Core IgM Antibody NEGATIVE Hepatitis C Antibody NEGATIVE Activated Partial 30.6 Thromboplast Time Date/Time Procedure Status Source Growth 01/31/17 21:18 Aerobic Blood Culture - Preliminary Resulted Blood Peripheral NO GROWTH IN 1 DAY 01/31/17 21:18 Anaerobic Blood Culture - Preliminary Resulted Blood Peripheral NO GROWTH IN 1 DAY (Marsha Degroot) Result Diagram: 02/01/17 1005 02/01/17 0609 Imaging Last 72 hours Impressions Chest X-Ray 01/31/17 1807 Signed Impressions: Service Date/Time: Tuesday, January 31, 2017 18:21 - CONCLUSION: There is parenchymal consolidation in the right lower lung as well as a right-sided pleural effusion. Cem Lee MD Abdomen X-Ray 01/31/177 Signed Impressions: Service Date/Time: Tuesday, January 31, 2017 18:27 - CONCLUSION: 1. Nonspecific bowel gas pattern. 2. Calcification right upper quadrant most likely representing a gallstone. Cem Lee MD Gall Bladder Ultrasound 01/31/17 0000 Signed Impressions: Service Date/Time: Tuesday, January 31, 2017 20:24 - CONCLUSION: 1. Cholelithiasis with mild gallbladder wall thickening. 2. Moderate to large right effusion. 3. Ascitic fluid in the right lower quadrant. Jacob Graham MD (Marsha Degroot) Assessment and Plan Problem List: (1) Acute kidney failure Plan: In a pt with no labs for comparison prerenal etiology due to sepsis, decreased renal perfusion A fib RVR also contributing to compromised perfusion his creatinine has improved since admission K 5.1, monitor for now off IVF, bumex increased he has proteinuria, quantify and obtain serum electrophoresis and urine immunofixation monitor output, he is non oliguric avoid nephrotoxins, metformin should be stopped daily renal panel (2) Hyponatremia Plan: mixed picture: initially hypovolemic hyponatremia secondary to infection that improved, fluids have since been stopped he is now exhibiting hypervolemic state increase loop diuretic to 2 mg IV daily, Bumex (3) Abnormal gallbladder ultrasound Plan: GI and surgery consulted noted elevated LFTs MRCP ordered await further recommendations (4) Atrial flutter with rapid ventricular response Plan: on cardizem gtt at 15 mg/hr cardiology consulted to evaluate need for anticoagulation (5) Pneumonia Plan: also has pleural effusion on right ID consulted currently on Zithromax and cefepime monitor clinically he required thoracentesis 6 wks ago (6) Thrombocytopenia Plan: urine immunofixation and serum electrophoresis to evaluate plasma dyscrasias (Marsha Degroot) Assessment and Plan patient was seen and examined. Echo report noted. Severe systolic dysfunction. Clinically hypervolemic. Hyponatremia could be associated with CHF, non osmotic release of ADH. Start loop diuretics, stop IVF. VERONICA could be due to renal hypoperfusion due to decompensated CHF, atrial fibrillation and possible pneumonia. Monitor. Order SPEP. Avoid nephrotoxic agents. He has thrombocytopenia. Obtain LDH. (Noe Kapoor MD) Problem Qualifiers (1) Pneumonia: Qualified Code: J18.1 - Pneumonia of right lower lobe due to infectious organism Marsha Degroot Feb 01, 2017 16:19 Noe Kapoor MD Feb 01, 2017 20:42
[2017-02-01 16:20] LABS: FERRITIN 531 NG/ML (26-388); TRANSFERRIN IRON PROFILE 221 MG/DL (200-360)
--- NOTE | 2017-02-01 16:51 | RADRPT ---
EXAM DATE/TIME: 02/01/2017 15:28 [facility] COMPARISON: No previous studies available for comparison. INDICATIONS : Right side effusion. MEDICAL HISTORY : Hypercholesterolemia. Hypertension. Renal failure. Diabetic. SURGICAL HISTORY : Thoracentesis. ENCOUNTER: Initial ACUITY: 1 day PAIN SCORE: 0/10 LOCATION: Right chest MEASUREMENTS: SKIN TO PARIETAL PLEURA: 2.3 cm SKIN TO MAX SAFE DEPTH: 7.6 cm ESTIMATED FLUID VOLUME: 2418 cc FLUID COMPOSITION: simple FINDINGS: Pleural effusion as above. A coco was placed on the skin surface superficial to the pleural fluid col lection. CONCLUSION: Right pleural effusion. Christos Euceda MD on February 01, 2017 at 16:48 Board Certified Radiologist. This report was verified electronically.
--- NOTE | 2017-02-01 18:19 | RADRPT ---
EXAM DATE/TIME: 02/01/2017 17:48 [facility] COMPARISON: US ABDOMEN - GALLBLADDER, January 31, 2017, 20:24. INDICATIONS : Right upper quadrant pain. Patient had an abnormal ultrasound demonstrating cholelithiasis with mild gallbladder wall thickening and ascites as well as a right effusion. Evaluate for abscess. ORAL CONTRAST: No oral contrast ingested. RADIATION DOSE: 18.33 CTDIvol (mGy) ; Combined studies - Thorax/Abdomen/Pelvis MEDICAL HISTORY : Hypertension. Renal failure, chronic. Diabetes mellitus type 2. SURGICAL HISTORY : None. ENCOUNTER: Subsequent ACUITY: 2 days PAIN SCALE: 3/10 LOCATION: abdomen TECHNIQUE: Volumetric scanning of the abdomen and pelvis was performed. Using automated exposure control and ad justment of the mA and/or kV according to patient size, radiation dose was kept as low as reasonably achievable to obtain optimal diagnostic quality images. FINDINGS: LOWER LUNGS: There are bilateral pleural effusions. This is small left and moderate on the right.. There is consol idation in the right posterior lung base with a swirling type pattern which could indicate rounded at electasis. LIVER: Homogeneous density without lesion. There is no dilation of the biliary tree. There is a densely mirian cified 2 cm gallstone. There is ascitic fluid surrounding the liver margin. SPLEEN: Normal size without lesion. PANCREAS: Within normal limits. KIDNEYS: Normal in size and shape. There is no mass, stone, or hydronephrosis. ADRENAL GLANDS: Within normal limits. VASCULAR: There is no aortic aneurysm. BOWEL/MESENTERY: There is a small to moderate amount of ascitic fluid in the pelvis fluid in the left paracolic gutter and small amount of fluid in the right paracolic gutter. There is nonspecific bowel gas pattern with multiple loops of nondilated small bowel. Gas and stool is noted segments in the colon. There is no evidence of free air. As the densities are noted throughout the central mesentery. No oral contrast w as given limiting sensitivity. There is motion artifact. ABDOMINAL WALL: Within normal limits. RETROPERITONEUM: There is no lymphadenopathy. BLADDER: No wall thickening or mass. REPRODUCTIVE: Within normal limits. INGUINAL: There is no lymphadenopathy or hernia. MUSCULOSKELETAL: Within normal limits for patient age. CONCLUSION: 1. Small to moderate amount of ascitic fluid with nonspecific bowel gas pattern. His findings are non specific. Infection cannot be excluded. There is no distinct focal abscess on this noncontrast study performed without oral contrast. 2. Densely calcified gallstone. 3. Moderate size right pleural effusion consolidation and possible rounded atelectasis in the right l ower lobe. There is a smaller left effusion. Jacob Graham MD on February 01, 2017 at 18:12 Board Certified Radiologist. This report was verified electronically.
[2017-02-01] MEDS: AZITHROMYCIN INJ 500 MG in SODIUM CHLOR 0.9% 250 ML INJ 250 ML IV SCH ×2 (19:47→22:45)
[2017-02-01] MEDS: DILTIAZEM HCL 90 MG TAB PO SCH ×2 (19:47→22:44)
--- NOTE | 2017-02-01 19:54 | RADRPT ---
EXAM DATE/TIME: 02/01/2017 17:48 [facility] COMPARISON: CHEST PA & LAT, January 31, 2017, 18:21. INDICATIONS : Pneumonia with empyema. Follow up. RADIATION DOSE: 18.33 CTDIvol (mGy) ; Combined studies - Thorax/Abdomen/Pelvis MEDICAL HISTORY : Renal failure, chronic. Hypertension. Diabetes mellitus type 2. SURGICAL HISTORY : None. ENCOUNTER: Subsequent ACUITY: 2 days PAIN SCALE: 3/10 LOCATION: Right chest TECHNIQUE: Volumetric scanning of the chest was performed. Using automated exposure control and adjustment of t he mA and/or kV according to patient size, radiation dose was kept as low as reasonably achievable to obtain optimal diagnostic quality images. FINDINGS: LUNGS: The left lung is grossly clear with a small left effusion. There is a large right pleural effusion wi th parenchymal consolidation in the right lower lung. PLEURAE: Large right pleural effusion. Small left pleural effusion. MEDIASTINUM: Few nonspecific lymph nodes are seen in the mediastinum. The heart size is mildly enlarged. There are coronary calcifications. AXILLAE: Within normal limits. No lymphadenopathy. MUSCULOSKELETAL: Within normal limits for patient age. MISCELLANEOUS: The visualized upper abdominal organs demonstrate no acute abnormality. CONCLUSION: 1. Large right-sided pleural effusion with parenchymal consolidation in the right lower lung. 2. Small left effusion. Cem Lee MD on February 01, 2017 at 19:50 Board Certified Radiologist. This report was verified electronically.
--- NOTE | 2017-02-01 19:58 | MB ---
cc: [facility] DATE OF CONSULTATION: 02/01/2017 REASON FOR CONSULTATION: Right pleural effusion REQUESTING PHYSICIAN Dr. Epperson HISTORY OF PRESENT ILLNESS: Mr. Torres is a 66 year-old white male with a history of COPD, hypertension, diabetes mellitus. The patient recently had a thoracentesis done in [place]. The patient went to the [facility]. He had a CT scan of the chest done which was abnormal. He was sent to the hospital for further evaluation. He feels weak and dizzy. Appetite is poor and he claims that he has lost 50 pounds of weight over the last six weeks or so. He denies any chest pain. No nausea or vomiting. The patient was worked up in the hospital. He had a chest x-ray done which shows right pleural effusion. Ultrasound confirmed the pleural effusion. LABORATORY DATA: CBC showed WBC count 9.3, hemoglobin 12.8, hematocrit 38.6, MCV 94.3, platelet count 104. Sodium 128, potassium 5.2, chloride 91, CO2 23, BUN 68, creatinine 2.2. PAST MEDICAL HISTORY: Significant for 1. Hypertension 2. Diabetes mellitus 3. COPD. 4. Pleural effusion 5. Status post thoracentesis. 6. Chronic back pain. MEDICATIONS: 1. Lipitor 40 milligrams a day. 2. Zithromax 500 milligrams a day. 3. Diltiazem 90 milligrams 4x a day. 4. Heparin 5000 units p.r.n. 5. Bumex 1 milligram b.i.d. 6. Hydralazine 10 milligrams p.r.n. 7. Diltiazem IV. ALLERGIES: Lisinopril SOCIAL HISTORY: He is single. He has a history of smoking which he quit three years ago. He drinks socially over the weekend. OCCUPATIONAL HISTORY: Grafighters. FAMILY HISTORY: He is single, lives alone, no children. REVIEW OF SYSTEMS: He has had a 50 pound weight loss over the last six weeks which he attributes to difficulty swallowing. No headache, no dizziness. No chest pain. PHYSICAL EXAMINATION: The patient is a well-built, well-nourished male not in acute distress. VITAL SIGNS: Blood pressure 159/75, heart rate 111, respirations 22, temperature 97. HEENT: Pupils are equal and react to light. Oral mucosa, nasal mucosa normal. Neck: Supple. JVD not raised. Chest: He has decreased breath sounds on the right chest. He has edema of the abdomen and chest wall. Abdomen: Nontender. Bowel sounds are present. Extremities: 2+ pedal edema. IMPRESSION 1. Right pleural effusion. 2. Hypertension. 3. Diabetes mellitus. 4. COPD. 5. Renal insufficiency. 6. Atrial fibrillation. PLAN: He is on heparin. Rate is being controlled with Cardizem. Continue his antibiotics, supplement his oxygen. Will plan for thoracentesis. Further treatment will depend on his course in the hospital. Thank you, Dr. Epperson, for this consult. Francisco Kaiser MD ADA/VETO /7:15 PM /7:43 PM
--- NOTE | 2017-02-01 19:59 | RADRPT ---
EXAM DATE/TIME: 02/01/2017 18:17 [facility] COMPARISON: CT ABDOMEN & PELVIS W/O CONTRAST, February 01, 2017, 17:48. INDICATIONS : Right upper abdomen pain, possible gallstone MEDICAL HISTORY : Diabetes mellitus type 2. Hypertension. Chronic obstructive pulmonary disease. SURGICAL HISTORY : None. ENCOUNTER: Subsequent ACUITY: 2 day PAIN SCORE: 7/10 LOCATION: Right upper quadrant TECHNIQUE: Multiplanar, multisequence magnetic resonance imaging of the abdomen was performed. High-resolution 3D dataset was utilized to reconstruct maximum-intensity projection (MIP) images. FINDINGS: INTRAHEPATIC BILE DUCTS: Within normal limits. No significant anatomical variant is present. EXTRAHEPATIC BILE DUCTS: The common bile duct measures 5 mm. No stone or filling defect is identified. GALLBLADDER: There appears to be a large stone in the gallbladder. Gallbladder is not dilated. Gallbladder wall is not thickened. LIVER: Liver appears to be somewhat small. There is normal signal intensity within the liver. There is a sma ll amount of ascites in the upper abdomen. There is edema in the mesenteric fat. PANCREAS: Not well visualized do to the edema in the mesenteric fat. There is a large right-sided pleural effusion. CONCLUSION: 1. There is a large gallstone in the gallbladder. 2. No definite biliary tract obstruction. 3. There is a small amount of ascites in the upper abdomen with nonspecific edema in the mesenteric f at. Cem Lee MD on February 01, 2017 at 19:52 Board Certified Radiologist. This report was verified electronically.
[2017-02-01] MEDS: ATORVASTATIN 40 MG TAB PO SCH (22:45)
[2017-02-02] VITALS (16 sets, daily range): BP systolic 107–157; BP diastolic 53–83; PULSE 70–123; RESP 14–27; TEMP 97.4–98; O2SAT 93–100
[2017-02-02] MEDS: CEFEPIME INJ 2,000 MG in SODIUM CHLORIDE 0.9% INJ 100 ML IV SCH ×2 (03:00→14:35)
--- NOTE | 2017-02-02 06:54 | PD.CARD.PN ---
Subjective Subjective Remarks pt without complaints Objective Medications Current Medications Medications (Trade) Dose Ordered Sig/Narda Route Start Time Stop Time Status Last Admin Diltiazem HCl 125 mg/Sodium Chloride 125 ml @ 0 mls/hr TITRATE IV 01/31/17 20:30 02/01/17 06:25 (NS 1000 ml Inj) 1,000 ml @ 40 mls/hr Q24H IV 01/31/17 20:27 Hold (Zofran Inj) 4 mg Q6H PRN IVP 01/31/17 20:30 (Milk Of Magnesia Liq) 30 ml Q12H PRN PO 01/31/17 20:30 Naloxone HCl 0.4 mg 0.4 mg UNSCH PRN IV 01/31/17 20:30 (Zithromax Inj/ NS 250 ml Inj) 250 ml @ 250 mls/hr Q24H IV 02/01/17 20:00 02/01/17 22:45 (Bumex Inj) 1 mg BID@09,18 IV PUSH 02/01/17 09:00 02/01/17 19:48 Miscellaneous Information Patient in critical care unit? Ass... Q361D XX 01/31/17 22:30 02/01/17 05:53 (Chlorhexidine 2% Cloth) 3 pack DAILY@04 TOP 02/01/17 04:00 02/05/17 04:01 02/01/17 05:53 (Chlorhexidine 2% Cloth) 3 pack UNSCH PRN TOP 01/31/17 22:30 02/05/17 22:29 (Lipitor) 40 mg HS PO 02/01/17 21:00 02/01/17 22:45 (Theragran) 1 tab DAILY PO 02/01/17 09:00 02/01/17 09:24 (Heparin Inj) 5,000 units UNSCH PRN IV 02/01/17 15:00 Heparin Sodium (Porcine) 2500 units 2,500 units UNSCH PRN IV 02/01/17 15:00 (Heparin-D5W Inj) 250 ml @ 0 mls/hr TITRATE IV 02/01/17 09:00 02/01/17 11:18 Hydralazine HCl 10 mg 10 mg Q8H PRN IV PUSH 02/01/17 08:45 02/01/17 09:24 (Maxipime Inj/NS Inj) 100 ml @ 200 mls/hr Q12H IV 02/01/17 15:00 02/01/17 15:27 (Cardizem) 90 mg QID PO 02/01/17 18:00 02/01/17 22:44 Vital Signs / I&O Vital Signs Date Time Temp Pulse Resp B/P Pulse Ox O2 Delivery O2 Flow Rate FiO2 02/02/17 02:00 94 02/02/17 00:00 98.0 96 14 108/53 93 02/02/17 00:00 96 02/01/17 22:00 118 02/01/17 20:00 97.9 123 20 128/92 96 02/01/17 20:00 126 02/01/17 18:00 119 02/01/17 16:00 97.7 111 22 159/75 96 02/01/17 16:00 111 02/01/17 14:00 110 02/01/17 12:00 98.0 113 24 128/78 94 02/01/17 12:00 113 02/01/17 10:00 110 02/01/17 08:00 97.9 109 21 154/128 95 02/01/17 08:00 109 I/O 02/01/17 02/01/17 02/01/17 02/02/17 02/02/17 02/02/17 07:00 15:00 23:00 07:00 15:00 23:00 Intake Total 2116 ml 839 ml 550 ml Output Total 240 ml 900 ml 400 ml Balance 1876 ml -61 ml 150 ml Intake Oral 800 ml 240 ml 250 ml IV Total 1316 ml 599 ml 300 ml Output Urine Total 240 ml 900 ml 400 ml # Voids 3 # Bowel Movements 0 Physical Exam GENERAL: Well developed, well nourished. No acute distress. HEENT: Jugular venous pressure is normal. CHEST: Lungs decreased, clear to auscultation bilaterally. Unlabored respiratory effort. CARDIAC: irregular rate and rhythm without S3, S4, or murmur. ABDOMEN: Soft, nontender, no hepatosplenomegaly. Bowel sounds present. EXTREMITIES: No clubbing,1+ edema. Laboratory Laboratory Tests Test 02/01/17 02/01/17 02/02/17 10:05 15:23 00:28 White Blood Count 9.3 TH/MM3 Red Blood Count 4.10 MIL/MM3 Hemoglobin 12.8 GM/DL Hematocrit 38.6 % Mean Corpuscular Volume 94.3 FL Mean Corpuscular Hemoglobin 31.1 PG Mean Corpuscular Hemoglobin 33.0 % Concent Red Cell Distribution Width 18.3 % Platelet Count 104 TH/MM3 Mean Platelet Volume 9.7 FL Prothrombin Time 15.4 SEC Prothromb Time International 1.4 RATIO Ratio Activated Partial 30.6 SEC 86.5 SEC 52.0 SEC Thromboplast Time Iron Level 26 MCG/DL Total Iron Binding Capacity 309 MCG/DL Percent Iron Saturation 8.4 % Ferritin 531 NG/ML Tumor Marker Alpha Fetoprotein 6.3 NG/ML Imaging Last 72 hours Impressions Cholangiopancreatography MRI 02/01/17 0000 Signed Impressions: Service Date/Time: Wednesday, February 01, 2017 18:17 - CONCLUSION: 1. There is a large gallstone in the gallbladder. 2. No definite biliary tract obstruction. 3. There is a small amount of ascites in the upper abdomen with nonspecific edema in the mesenteric fat. Cem Lee MD Chest Ultrasound 02/01/17 0000 Signed Impressions: Service Date/Time: Wednesday, February 01, 2017 15:28 - CONCLUSION: Right pleural effusion. Christos Euceda MD Chest CT 02/01/17 0000 Signed Impressions: Service Date/Time: Wednesday, February 01, 2017 17:48 - CONCLUSION: 1. Large right-sided pleural effusion with parenchymal consolidation in the right lower lung. 2. Small left effusion. Cem Lee MD Abdomen/Pelvis CT 02/01/17 0000 Signed Impressions: Service Date/Time: Wednesday, February 01, 2017 17:48 - CONCLUSION: 1. Small to moderate amount of ascitic fluid with nonspecific bowel gas pattern. His findings are nonspecific. Infection cannot be excluded. There is no distinct focal abscess on this noncontrast study performed without oral contrast. 2. Densely calcified gallstone. 3. Moderate size right pleural effusion consolidation and possible rounded atelectasis in the right lower lobe. There is a smaller left effusion. Jacob Graham MD Chest X-Ray 01/31/17 1807 Signed Impressions: Service Date/Time: Tuesday, January 31, 2017 18:21 - CONCLUSION: There is parenchymal consolidation in the right lower lung as well as a right-sided pleural effusion. Cem Lee MD Abdomen X-Ray 01/31/17 1807 Signed Impressions: Service Date/Time: Tuesday, January 31, 2017 18:27 - CONCLUSION: 1. Nonspecific bowel gas pattern. 2. Calcification right upper quadrant most likely representing a gallstone. Cem Lee MD Gall Bladder Ultrasound 01/31/17 0000 Signed Impressions: Service Date/Time: Tuesday, January 31, 2017 20:24 - CONCLUSION: 1. Cholelithiasis with mild gallbladder wall thickening. 2. Moderate to large right effusion. 3. Ascitic fluid in the right lower quadrant. Jacob Graham MD Assessment and Plan Assessment and Plan Atrial fibrillation - The patient has new onset atrial fibrillation. -continue PO cardizem and add metoprolol -CHADS-VASc score=2, HTN, possibly for diabetes. Pneumonia - This is being managed by the primary team. Acute renal insufficiency - This is being managed by the primary team. Elevated LFTs - We will use caution with his p.o. medications. Hyponatremia - This is being managed by primary team. Leonora Warner MD Feb 02, 2017 06:54
[2017-02-02 07:33] LABS: AUTOMATED NEUTROPHIL # 7.5 TH/MM3 (1.8-7.7); BASOPHIL % 0.2 % (0.0-2.0); HEMATOCRIT 37.9 % (39.0-51.0); HEMO FLAGS DIFF FINAL; LYMPH % 4.1 % (9.0-44.0); LYMPHOCYTE # 0.4 TH/MM3 (1.0-4.8); MEAN CELL VOLUME 93.4 FL (80.0-100.0); MEAN CORPUSCULAR HEMOGLOBIN 31.5 PG (27.0-34.0); MEAN CORPUSCULAR HGB CONC 33.8 % (32.0-36.0); MONO % 11.4 % (0.0-8.0); NEUT % 84.3 % (16.0-70.0); PLATELET COUNT 144 TH/MM3 (150-450); RED BLOOD COUNT 4.06 MIL/MM3 (4.50-5.90); RED CELL DISTRIBUTION WIDTH 18.1 % (11.6-17.2); WHITE BLOOD COUNT 8.9 TH/MM3 (4.0-11.0)
[2017-02-02 07:43] LABS: APTT (PATIENT) 41.7 SEC (24.3-30.1)
[2017-02-02] MEDS: DILTIAZEM HCL 90 MG TAB PO SCH ×3 (07:48→17:40)
[2017-02-02 08:05] LABS: ANION GAP 13 MEQ/L (5-15); AST (GOT) 49 U/L (15-37); BICARBONATE 22.5 MEQ/L (21.0-32.0); BLOOD UREA NITROGEN 68 MG/DL (7-18); CHLORIDE 93 MEQ/L (98-107); GLOMERULAR FILTRATION RATE 28 ML/MIN (>89); POTASSIUM 4.8 MEQ/L (3.5-5.1); SODIUM (NA) 128 MEQ/L (136-145)
[2017-02-02 08:08] LABS: ALKALINE PHOSPHATASE 95 U/L (45-117); ALT (GPT) 179 U/L (12-78); LDH SERUM 226 U/L (87-241); TOTAL BILIRUBIN ADULT 2.9 MG/DL (0.2-1.0)
--- NOTE | 2017-02-02 08:35 | HHI.PR ---
Subjective Remarks f/u; a-fib/ anasarca in no acute distress. HR still elevated. denies chest pain or abdominal pain. no fever. d/w the RN and no acute issues over night. Objective Vitals Vital Signs Date Time Temp Pulse Resp B/P Pulse Ox O2 Delivery O2 Flow Rate FiO2 02/02/17 06:00 116 02/02/17 04:00 96 02/02/17 04:00 97.9 98 16 120/61 94 02/02/17 02:00 94 02/02/17 00:00 98.0 96 14 108/53 93 02/02/17 00:00 96 02/01/17 22:00 118 02/01/17 20:00 97.9 123 20 128/92 96 02/01/17 20:00 126 02/01/17 18:00 119 02/01/17 16:00 97.7 111 22 159/75 96 02/01/17 16:00 111 02/01/17 14:00 110 02/01/17 12:00 98.0 113 24 128/78 94 02/01/17 12:00 113 02/01/17 10:00 110 I/O 02/01/17 02/01/17 02/01/17 02/02/17 02/02/17 02/02/17 07:00 15:00 23:00 07:00 15:00 23:00 Intake Total 2116 ml 839 ml 550 ml 725 ml Output Total 240 ml 900 ml 400 ml 450 ml Balance 1876 ml -61 ml 150 ml 275 ml Intake Oral 800 ml 240 ml 250 ml 100 ml IV Total 1316 ml 599 ml 300 ml 625 ml Output Urine Total 240 ml 900 ml 400 ml 450 ml # Voids 3 # Bowel Movements 0 Result Diagram: 02/02/1771202/02/17712 Imaging Last Impressions Cholangiopancreatography MRI 02/01/17 0000 Signed Impressions: Service Date/Time: Wednesday, February 01, 2017 18:17 - CONCLUSION: 1. There is a large gallstone in the gallbladder. 2. No definite biliary tract obstruction. 3. There is a small amount of ascites in the upper abdomen with nonspecific edema in the mesenteric fat. Cem Lee MD Chest Ultrasound 02/01/17 0000 Signed Impressions: Service Date/Time: Wednesday, February 01, 2017 15:28 - CONCLUSION: Right pleural effusion. Christos Euceda MD Chest CT 02/01/17 0000 Signed Impressions: Service Date/Time: Wednesday, February 01, 2017 17:48 - CONCLUSION: 1. Large right-sided pleural effusion with parenchymal consolidation in the right lower lung. 2. Small left effusion. Cem Lee MD Abdomen/Pelvis CT 02/01/17 0000 Signed Impressions: Service Date/Time: Wednesday, February 01, 2017 17:48 - CONCLUSION: 1. Small to moderate amount of ascitic fluid with nonspecific bowel gas pattern. His findings are nonspecific. Infection cannot be excluded. There is no distinct focal abscess on this noncontrast study performed without oral contrast. 2. Densely calcified gallstone. 3. Moderate size right pleural effusion consolidation and possible rounded atelectasis in the right lower lobe. There is a smaller left effusion. Jacob Graham MD Chest X-Ray 01/31/17 1807 Signed Impressions: Service Date/Time: Tuesday, January 31, 2017 18:21 - CONCLUSION: There is parenchymal consolidation in the right lower lung as well as a right-sided pleural effusion. Cem Lee MD Abdomen X-Ray 01/31/17 1807 Signed Impressions: Service Date/Time: Tuesday, January 31, 2017 18:27 - CONCLUSION: 1. Nonspecific bowel gas pattern. 2. Calcification right upper quadrant most likely representing a gallstone. Cem Lee MD Gall Bladder Ultrasound 01/31/17 0000 Signed Impressions: Service Date/Time: Tuesday, January 31, 2017 20:24 - CONCLUSION: 1. Cholelithiasis with mild gallbladder wall thickening. 2. Moderate to large right effusion. 3. Ascitic fluid in the right lower quadrant. Jacob Graham MD Objective Remarks GENERAL: in no apparent distress. CARDIOVASCULAR: tachycardic and irregular rhythm without murmurs, gallops, or rubs. RESPIRATORY: diminished air entry on right base GASTROINTESTINAL: Abdomen soft, non-tender, distended. Normal, active bowel sounds MUSCULOSKELETAL: Extremities with bilateral pedal edema NEURO: Alert & Oriented x4 to person, place, time, situation. Moves all ext x4 Procedures none Medications and IVs Current Medications Diltiazem HCl (Cardizem Inj) 15 mg ONCE ONCE IV Last administered on 19:42; Start 01/31/17 at 19:45; Stop 01/31/17 at 19:46; Status DC Diltiazem HCl 20 mg 20 mg ONCE ONCE IV Last administered on 01/31/17 20:06; Start 01/31/17 at 20:00; Stop 01/31/17 at 20:01; Status DC Sodium Chloride 1,000 ml @ 999 mls/hr BOLUS ONCE IV Last administered on 01/31 20:06; Start 01/31/17 at 20:00; Stop 01/31/17 at 21:00; Status DC Sodium Chloride 1,000 ml @ 125 mls/hr Q8H IV Last administered on 01/31/17 21 :11; Start 01/31/17 at 20:02; Stop 02/01/17 at 04:01; Status DC Ceftriaxone Sodium 1000 mg/ Sodium Chloride 100 ml @ 200 mls/hr ONCE ONCE IV Last administered on 01/31/17 21:11; Start 01/31/17 at 20:15; Stop 01/31/17 at 20:44; Status DC Azithromycin 500 mg/Sodium Chloride 250 ml @ 250 mls/hr ONCE ONCE IV Last administered on 01/31/17 20:12; Start 01/31/17 at 20:15; Stop 01/31/17 at 21:14 ; Status DC Diltiazem HCl 125 mg/Sodium Chloride 125 ml @ 0 mls/hr TITRATE IV Last administered on 02/01/17 06:25; Start 01/31/17 at 20:30 Sodium Chloride (NS 1000 ml Inj) 1,000 ml @ 40 mls/hr Q24H IV ; Start 01/31/17 at 20:27; Status Hold Ondansetron HCl (Zofran Inj) 4 mg Q6H PRN IVP NAUSEA OR VOMITING; Start at 20:30 Magnesium Hydroxide (Milk Of Magnesia Liq) 30 ml Q12H PRN PO CONSTIPATION; Start 01/31/17 at 20:30 Heparin Sodium (Porcine) (Heparin Inj) 5,000 units Q12HR SQ Last administered on 01/31/17 21:10; Start 01/31/17 at 21:00; Stop 02/01/17 at 08:58; Status DC Naloxone HCl 0.4 mg 0.4 mg UNSCH PRN IV SEE LABEL COMMENTS; Start 01/31/17 at 20:30 Ceftriaxone Sodium 1000 mg/ Sodium Chloride 100 ml @ 200 mls/hr Q12H IV Last administered on 02/01/17 09:24; Start 02/01/17 at 08:00; Stop 02/01/17 at 14:23 ; Status DC Azithromycin/ Sodium Chloride (Zithromax Inj/ NS 250 ml Inj) 250 ml @ 250 mls/ hr Q24H IV Last administered on 02/01/17 22:45; Start 02/01/17 at 20:00 Bumetanide (Bumex Inj) 1 mg BID@09,18 IV PUSH Last administered on 02/01/17 19 :48; Start 02/01/17 at 09:00 Bumetanide (Bumex Inj) 1 mg ONCE ONCE IV PUSH Last administered on 01/31/17 21:51; Start 01/31/17 at 21:15; Stop 01/31/17 at 21:16; Status DC Miscellaneous Information Patient in critical care unit? Ass... Q361D XX Last administered on 02/01/17 05:53; Start 01/31/17 at 22:30 Chlorhexidine Gluconate (Chlorhexidine 2% Cloth) 3 pack DAILY@04 TOP Last administered on 02/01/17 05:53; Start 02/01/17 at 04:00; Stop 02/05/17 at 04:01 Chlorhexidine Gluconate (Chlorhexidine 2% Cloth) 3 pack UNSCH PRN TOP HYGIENIC CARE; Start 01/31/17 at 22:30; Stop 02/05/17 at 22:29 Atorvastatin Calcium (Lipitor) 40 mg HS PO Last administered on 02/01/17 22:45 ; Start 02/01/17 at 21:00 Multivitamins (Theragran) 1 tab DAILY PO Last administered on 02/01/17 09:24; Start 02/01/17 at 09:00 Diltiazem HCl (Cardizem) 60 mg QID PO Last administered on 02/01/17 13:18; Start 02/01/17 at 09:00; Stop 02/01/17 at 17:16; Status DC Heparin Sodium (Porcine) (Heparin Inj) 4,000 units ONCE ONCE IV Last administered on 02/01/17 11:17; Start 02/01/17 at 09:00; Stop 02/01/17 at 09:01 ; Status DC Heparin Sodium (Porcine) (Heparin Inj) 5,000 units UNSCH PRN IV APTT LESS THAN 25; Start 02/01/17 at 15:00 Heparin Sodium (Porcine) 2500 units 2,500 units UNSCH PRN IV APTT 25 TO 39; Start 02/01/17 at 15:00 Heparin Sodium/ Dextrose (Heparin-D5W Inj) 250 ml @ 0 mls/hr TITRATE IV Last administered on 02/01/17 11:18; Start 02/01/17 at 09:00 Hydralazine HCl 10 mg 10 mg Q8H PRN IV PUSH SBP>180, DBP>110 Last administered on 02/01/17 09:24; Start 02/01/17 at 08:45 Cefepime HCl/ Sodium Chloride (Maxipime Inj/NS Inj) 100 ml @ 200 mls/hr Q12H IV Last administered on 02/02/17 03:00; Start 02/01/17 at 15:00 Diltiazem HCl (Cardizem) 90 mg QID PO Last administered on 02/01/17 22:44; Start 02/01/17 at 18:00; Stop 02/02/17 at 06:56; Status DC Diltiazem HCl (Cardizem) 90 mg Q6HR PO Last administered on 02/02/17 07:48; Start 02/02/17 at 07:00 Metoprolol Tartrate (Lopressor) 25 mg Q12HR PO ; Start 02/02/17 at 09:00 A/P Assessment and Plan A/P Pneumonia with right pleural effusion -continue IV antibiotics -plan for thoracentesis today -ID and pulmonary following Cardiomyopathy echo with EF 20-25% and diffuse hypokinesis continue diuretic cardiology following. Cholelithiasis - surgery evaluation appreciated; no plan for surgery at this time -Hepatitis profile negative elevated LFT's- likely due to liver congestion due to CHF MRCP with a large gallstone in the gallbladder. No definite biliary tract obstruction. and a small amount of ascites in the upper abdomen with nonspecific edema in the mesenteric fat. - hepatitis panel negative -GI following. Aflutter with RVR EKG shows Aflutter with RVR -on Cardizme and Metoprolo -on Heparin drip ( on hold for now due to planned thoracentesis) -Cardiology following renal insufficiency with unknown duration -Consulted nephrology for recommendations -SPEP pending -Trend CMP -Avoid nephrotoxic drugs Hyponatremia likely due to fluid overload- continue diuretics and will monitor the level DVT prophylaxis: Heparin consult PT tomorrow. Cierra Epperson MD Feb 02, 2017 08:35
[2017-02-02] MEDS: BUMETANIDE INJ 1 MG/4 ML VIAL IV PUSH SCH ×2 (08:46→17:40)
[2017-02-02] MEDS: METOPROLOL TARTRATE 25 MG TAB PO SCH ×2 (08:47→23:27)
[2017-02-02] MEDS: MULTIVITAMIN TAB PO SCH (08:47)
[2017-02-02 09:23] LABS: TOTAL PROTEIN SPE 6.4 GM/DL (6.0-7.6)
--- NOTE | 2017-02-02 09:43 | HHI.GIFU ---
Subjective Remarks Resting in bed. Denies any nausea, vomiting, abdominal pain. Tolerating diet. (Ami Jean) Objective Vitals I&O Vital Signs Date Time Temp Pulse Resp B/P Pulse Ox O2 Delivery O2 Flow Rate FiO2 02/02/17 08:32 95 02/02/17 08:00 118 02/02/17 08:00 97.5 123 27 138/83 96 02/02/17 06:00 116 02/02/17 04:00 96 02/02/17 04:00 97.9 98 16 120/61 94 02/02/17 02:00 94 02/02/17 00:00 98.0 96 14 108/53 93 02/02/17 00:00 96 02/01/17 22:00 118 02/01/17 20:00 97.9 123 20 128/92 96 02/01/17 20:00 126 02/01/17 18:00 119 02/01/17 16:00 97.7 111 22 159/75 96 02/01/17 16:00 111 02/01/17 14:00 110 02/01/17 12:00 98.0 113 24 128/78 94 02/01/17 12:00 113 02/01/17 10:00 110 I/O 02/01/17 02/01/17 02/01/17 02/02/17 02/02/17 02/02/17 07:00 15:00 23:00 07:00 15:00 23:00 Intake Total 2116 ml 839 ml 550 ml 725 ml Output Total 240 ml 900 ml 400 ml 450 ml Balance 1876 ml -61 ml 150 ml 275 ml Intake Oral 800 ml 240 ml 250 ml 100 ml IV Total 1316 ml 599 ml 300 ml 625 ml Output Urine Total 240 ml 900 ml 400 ml 450 ml # Voids 3 # Bowel Movements 0 Laboratory Laboratory Tests Test 02/01/17 02/01/17 02/02/17 02/02/17 10:05 15:23 00:28 07:13 White Blood Count 9.3 8.9 Red Blood Count 4.10 4.06 Hemoglobin 12.8 12.8 Hematocrit 38.6 37.9 Mean Corpuscular Volume 94.3 93.4 Mean Corpuscular Hemoglobin 31.1 31.5 Mean Corpuscular Hemoglobin 33.0 33.8 Concent Red Cell Distribution Width 18.3 18.1 Platelet Count 104 144 Mean Platelet Volume 9.7 9.6 Prothrombin Time 15.4 Prothromb Time International 1.4 Ratio Activated Partial 30.6 86.5 52.0 41.7 Thromboplast Time Iron Level 26 Total Iron Binding Capacity 309 Percent Iron Saturation 8.4 Ferritin 531 Tumor Marker Alpha Fetoprotein 6.3 Neutrophils (%) (Auto) 84.3 Lymphocytes (%) (Auto) 4.1 Monocytes (%) (Auto) 11.4 Eosinophils (%) (Auto) 0.0 Basophils (%) (Auto) 0.2 Neutrophils # (Auto) 7.5 Lymphocytes # (Auto) 0.4 Monocytes # (Auto) 1.0 Eosinophils # (Auto) 0.0 Basophils # (Auto) 0.0 CBC Comment DIFF FINAL Differential Comment Sodium Level 128 Potassium Level 4.8 Chloride Level 93 Carbon Dioxide Level 22.5 Anion Gap 13 Blood Urea Nitrogen 68 Creatinine 2.32 Estimat Glomerular Filtration 28 Rate Random Glucose 146 Calcium Level 8.1 Total Bilirubin 2.9 Aspartate Amino Transf 49 (AST/SGOT) Alanine Aminotransferase 179 (ALT/SGPT) Alkaline Phosphatase 95 Lactate Dehydrogenase 226 C-Reactive Protein 14.50 Total Protein 6.4 Albumin 2.5 Date/Time Procedure Status Source Growth 01/31/17 21:18 Aerobic Blood Culture - Preliminary Resulted Blood Peripheral NO GROWTH IN 1 DAY 01/31/17 21:18 Anaerobic Blood Culture - Preliminary Resulted Blood Peripheral NO GROWTH IN 1 DAY Imaging Last Impressions Cholangiopancreatography MRI 02/01/17 0000 Signed Impressions: Service Date/Time: Wednesday, February 01, 2017 18:17 - CONCLUSION: 1. There is a large gallstone in the gallbladder. 2. No definite biliary tract obstruction. 3. There is a small amount of ascites in the upper abdomen with nonspecific edema in the mesenteric fat. Cem Lee MD Chest Ultrasound 02/01/17 0000 Signed Impressions: Service Date/Time: Wednesday, February 01, 2017 15:28 - CONCLUSION: Right pleural effusion. Christos Euceda MD Chest CT 02/01/17 0000 Signed Impressions: Service Date/Time: Wednesday, February 01, 2017 17:48 - CONCLUSION: 1. Large right-sided pleural effusion with parenchymal consolidation in the right lower lung. 2. Small left effusion. Cem Lee MD Abdomen/Pelvis CT 02/01/17 0000 Signed Impressions: Service Date/Time: Wednesday, February 01, 2017 17:48 - CONCLUSION: 1. Small to moderate amount of ascitic fluid with nonspecific bowel gas pattern. His findings are nonspecific. Infection cannot be excluded. There is no distinct focal abscess on this noncontrast study performed without oral contrast. 2. Densely calcified gallstone. 3. Moderate size right pleural effusion consolidation and possible rounded atelectasis in the right lower lobe. There is a smaller left effusion. Jacob Graham MD Chest X-Ray 01/31/17 1807 Signed Impressions: Service Date/Time: Tuesday, January 31, 2017 18:21 - CONCLUSION: There is parenchymal consolidation in the right lower lung as well as a right-sided pleural effusion. Cem Lee MD Abdomen X-Ray 01/31/17 1807 Signed Impressions: Service Date/Time: Tuesday, January 31, 2017 18:27 - CONCLUSION: 1. Nonspecific bowel gas pattern. 2. Calcification right upper quadrant most likely representing a gallstone. Cem Lee MD Gall Bladder Ultrasound 01/31/17 0000 Signed Impressions: Service Date/Time: Tuesday, January 31, 2017 20:24 - CONCLUSION: 1. Cholelithiasis with mild gallbladder wall thickening. 2. Moderate to large right effusion. 3. Ascitic fluid in the right lower quadrant. Jacob Graham MD Physical Exam HEENT: Normocephalic; atraumatic; no jaundice. CHEST: CTA CARDIAC: RRR ABDOMEN: Soft, nondistended, nontender; no hepatosplenomegaly; bowel sounds are present in all four quadrants. EXTREMITIES: Mild BLE edema. SKIN: Normal; no rash; no jaundice. REPRESENTATIVE GOVERNMENT RELATIONS: No focal deficits; alert and oriented times three. (Ami Jean) Assessment and Plan Plan ASSESSMENT: - Elevated LFTs. Gall Bladder Ultrasound (01/31/17)----> 1. Cholelithiasis with mild gallbladder wall thickening. 2. Moderate to large right effusion. 3. Ascitic fluid in the right lower quadrant. Abdomen/ Pelvis CT (02/01/17)----> 1. Small to moderate amount of ascitic fluid with nonspecific bowel gas pattern. His findings are nonspecific. Infection cannot be excluded. There is no distinct focal abscess on this noncontrast study performed without oral contrast. 2. Densely calcified gallstone. 3. Moderate size right pleural effusion consolidation and possible rounded atelectasis in the right lower lobe. There is a smaller left effusion. MRCP (02/01/17)----> 1. There is a large gallstone in the gallbladder. 2. No definite biliary tract obstruction. 3. There is a small amount of ascites in the upper abdomen with nonspecific edema in the mesenteric fat. Hepatitis panel negative. JAVAN pending, ASMA pending, AMA pending, Ferritin 531, Iron saturation 8.4%, AFP 6.3, Ceruloplasmin pending. Alpha 1 Antitrypsin pending. LFTs improving, T. Bili 2.9, AST 49, ALT 179, Alk phosph 95. Pt likely has some degree of hepatic congestion. - Cholelithiasis with gb wall thickening. S/P GS evaluation, no plans for cholecystomy tube at this time. - PNA with right pleural effusion. Diuretics. Scheduled for thoracentesis today. - CHF, CMP, EF 20-25%, Aflutter. Rate controlled. Cardiology following. - VERONICA, Hyponatremia. Creat 2.32. Na+ 128. - Anemia. Mild 12.8/37.9. Plan - Heart healthy diet - Await JAVAN, ASMA, AMA - Await Alpha 1 Antitrypsin, Ceruloplasmin - Monitor LFTs - Avoid hepatotoxic medications - Supportive care - Further recommendations will follow based on results of above - Pt seen and examined by Dr. Malave and myself and this note is written on his behalf (Ami Jean) Physician Comments Seen and examined with Ms. Ted PHILLIPS, doing better. MRCP reviewed. Cholilithiasis, LFTs improving, flower in progress. (Raghavendra Malave MD) Ami Jean Feb 02, 2017 09:43 Raghavendra Malave MD Feb 02, 2017 15:04
--- NOTE | 2017-02-02 11:07 | HHI.NPPN ---
Subjective Complaints: Shortness of Breath General Problems: Edema, Hypertension Renal Failure: Acute Interval History Resting in bed, not on oxygen. To have thoracentesis today. Creatinine is slightly higher, sodium is unchanged. (Marsha Degroot) Review of Systems General Constitutional: Fatigue (Marsha Degroot) Respiratory Lungs: SOB, Cough (Marsha Degroot) Cardiovascular Cardiac: Edema (Marsha Degroot) Objective Data Data 02/01/17 02/02/17 19:00 07:00 Intake Total 839 ml 1275 ml Output Total 900 ml 850 ml Balance -61 ml 425 ml Intake Oral 240 ml 350 ml IV Total 599 ml 925 ml Output Urine Total 900 ml 850 ml # Voids 3 Vital Signs Date Time Temp Pulse Resp B/P Pulse Ox O2 Delivery O2 Flow Rate FiO2 02/02/17 10:00 70 02/02/17 08:32 95 02/02/17 08:00 118 02/02/17 08:00 97.5 123 27 138/83 96 02/02/17 06:00 116 02/02/17 04:00 96 02/02/17 04:00 97.9 98 16 120/61 94 02/02/17 02:00 94 02/02/17 00:00 98.0 96 14 108/53 93 02/02/17 00:00 96 02/01/17 22:00 118 02/01/17 20:00 97.9 123 20 128/92 96 02/01/17 20:00 126 02/01/17 18:00 119 02/01/17 16:00 97.7 111 22 159/75 96 02/01/17 16:00 111 02/01/17 14:00 110 02/01/17 12:00 98.0 113 24 128/78 94 02/01/17 12:00 113 (Marsha Degroot) -: 02/02/17 0713 02/02/17 0713 Imaging Last Impressions Cholangiopancreatography MRI 02/01/17 0000 Signed Impressions: Service Date/Time: Wednesday, February 01, 2017 18:17 - CONCLUSION: 1. There is a large gallstone in the gallbladder. 2. No definite biliary tract obstruction. 3. There is a small amount of ascites in the upper abdomen with nonspecific edema in the mesenteric fat. Cem Lee MD Chest Ultrasound 02/01/17 0000 Signed Impressions: Service Date/Time: Wednesday, February 01, 2017 15:28 - CONCLUSION: Right pleural effusion. Christos Euceda MD Chest CT 02/01/17 0000 Signed Impressions: Service Date/Time: Wednesday, February 01, 2017 17:48 - CONCLUSION: 1. Large right-sided pleural effusion with parenchymal consolidation in the right lower lung. 2. Small left effusion. Cem Lee MD Abdomen/Pelvis CT 02/01/17 0000 Signed Impressions: Service Date/Time: Wednesday, February 01, 2017 17:48 - CONCLUSION: 1. Small to moderate amount of ascitic fluid with nonspecific bowel gas pattern. His findings are nonspecific. Infection cannot be excluded. There is no distinct focal abscess on this noncontrast study performed without oral contrast. 2. Densely calcified gallstone. 3. Moderate size right pleural effusion consolidation and possible rounded atelectasis in the right lower lobe. There is a smaller left effusion. Jacob Graham MD Chest X-Ray 01/31/171806 Signed Impressions: Service Date/Time: Tuesday, January 31, 2017 18:21 - CONCLUSION: There is parenchymal consolidation in the right lower lung as well as a right-sided pleural effusion. Cem Lee MD Abdomen X-Ray 01/31/171806 Signed Impressions: Service Date/Time: Tuesday, January 31, 2017 18:27 - CONCLUSION: 1. Nonspecific bowel gas pattern. 2. Calcification right upper quadrant most likely representing a gallstone. Cem Lee MD Gall Bladder Ultrasound 01/31/17 0000 Signed Impressions: Service Date/Time: Tuesday, January 31, 2017 20:24 - CONCLUSION: 1. Cholelithiasis with mild gallbladder wall thickening. 2. Moderate to large right effusion. 3. Ascitic fluid in the right lower quadrant. Jacob Graham MD (Marsha Degroot) Physical Exam General Appearance: Well Developed, Well Nourished, Comfortable (Marsha Degroot) Throat Throat Exam: Oral Mucosa [place] & Moist (Marsha Degroot) Pulmonary Resp Exam: Breath Sounds Equal, No Distress Resp Remarks dull on right base (Marsha Degroot) Gastrointestinal/Abdomen GI Exam: Soft, Non-Tender (Marsha Degroot) Musculoskeletal MS Exam: Joints Intact, Normal Tone (Marsha Degroot) Integumentary Skin Exam: Warm, Dry (Marsha Degroot) Extremeties Extremities Exam: Pedal Pulses Palpable, Moderate Edema (Marsha Degroot) Neurologic Neuro Exam: Alert, Awake, Oriented, Speech Clear, Moving All Extremities ( Marsha Degroot) Psychiatric Psych Exam: Appropriate Responses (Marsha Degroot) Assessment/Plan Discussed Condition With: Patient Assessment Summary: VERONICA/Acute Renal Failure, Hypertension, Diabetes Mellitus Problem List: (1) Acute kidney failure Plan: In a pt with no labs for comparison VERONICA could be due to renal hypoperfusion due to decompensated CHF, atrial fibrillation and possible pneumonia. his creatinine is slightly worse today K is acceptable diuresis with bumex, off IVF he has proteinuria, quantification ordered, I have asked nurse to collect serum electrophoresis and urine immunofixation are in process monitor output, he is non oliguric avoid nephrotoxins, metformin should be avoided daily renal panel (2) Hyponatremia Plan: hypervolemic hyponatremia continue on Bumex 2 mg IV daily, fluid restriction when no longer NPO follow sodium level (3) Abnormal gallbladder ultrasound Plan: MRCP reviewed, he does have large gallstone GI and surgery consulted, no plans for surgery at this time he also has ascites on imaging await further recommendations (4) Atrial flutter with rapid ventricular response Plan: new onset, cardiology following Cardizem gtt d/c, on oral Cardizem and metoprolol Chads Vasc score 2, on heparin gtt (5) Pneumonia Plan: ID consulted currently on Zithromax and cefepime monitor clinically (6) Thrombocytopenia Plan: urine immunofixation and serum electrophoresis to evaluate plasma dyscrasias (7) Pleural effusion Plan: has effusion on right, pulmonary following, to have thoracentesis today he required thoracentesis 6 wks ago (Marsha Degroot) Plan patient was seen and examined. Agree with above assessment and plan. Hyponatremia: hypervolemic, due to non osmotic release of ADH. Has severe cardiomyopathy with anasarca. s/p thoracentesis. Pulmonary, ID following. Prognosis is guarded. (Noe Kapoor MD) Problem Qualifiers (1) Pneumonia: Qualified Code: J18.1 - Pneumonia of right lower lobe due to infectious organism Marsha Degroot Feb 02, 2017 11:07 Noe Kapoor MD Feb 02, 2017 20:00
--- NOTE | 2017-02-02 11:13 | HHI.PR ---
Addendum to Inpatient Note Addendum Reason: Additional Documentation Additional Information Patient in US procedure for thoracentesis Add fluid studies for micro: gram stain culture fungal stain and culture AFB stain and culture. Will see patient in am. Edie Vega MD Feb 02, 2017 11:13
--- NOTE | 2017-02-02 12:35 | RADRPT ---
EXAM DATE/TIME: 02/02/2017 12:13 [facility] COMPARISON: No previous studies available for comparison. INDICATIONS : Post right thoracentesis. MEDICAL HISTORY : Diabetes mellitus type 2. Hypertension. Chronic obstructive pulmonary di sease. SURGICAL HISTORY : None. ENCOUNTER: Subsequent ACUITY: 2 days PAIN SCORE: 0/10 LOCATION: Right chest FINDINGS: A single frontal expiratory view of the chest was performed. The lungs are symmetrically aerated and clear. No evidence of pneumothorax. Mediastinal structures are in the midline.The cardio-mediastin al contours and bronchopulmonary markings are unremarkable for an expiratory exam. Osseous structure s are intact. CONCLUSION: Negative for pneumothorax. Consolidative changes and minimal fluid persists on the r ight. Eliud Garces MD FACR on February 02, 2017 at 12:33 Board Certified Radiologist. This report was verified electronically.
[2017-02-02] MEDS: HEPARIN-D5W INJ 250 ML IV SCH (14:35)
[2017-02-02 14:36] LABS: PLEURAL FLUID LYMPHS 65 %
--- NOTE | 2017-02-02 15:25 | RADRPT ---
EXAM DATE/TIME: 02/02/2017 11:24 [facility] COMPARISON: No previous studies available for comparison. INDICATIONS : Right pleural effusion. MEDICAL HISTORY : Hypertension. Chronic obstructive pulmonary disease. Diabetic. SURGICAL HISTORY : None. ENCOUNTER: Initial ACUITY: 1 day PAIN SCORE: 3/10 LOCATION: Right chest FLUID: Total volume of 1000 cc of clear, yellow fluid was removed. Fluid was sent to lab for ordered studies. TECHNIQUE: 1. Ultrasound guidance for thoracentesis. 2. Thoracentesis. The risks, benefits, and alternatives to ultrasound guided thoracentesis were explained to the patien t in lay simple terms, including the risk of bleeding and infection. Written and verbal informed con sent was obtained. Appropriate area for thoracentesis was marked under ultrasound guidance with the patient in the uprig ht position. Overlying skin was prepped and draped in the usual sterile fashion and with local anest hetic, a dermatotomy was made with an 11 blade scalpel. A 6 [place] thoracentesis catheter was placed in the pleural space and fluid was removed. Catheter was then removed and a sterile dressing applie d. There were no immediate complications. The patient tolerated the procedure well and the left the ultrasound suite in stable condition. Chest radiograph is to be obtained. CONCLUSION: Uncomplicated ultrasound guided thoracentesis. Eliud Garces MD FACR on February 02, 2017 at 15:23 Board Certified Radiologist. This report was verified electronically.
--- NOTE | 2017-02-02 21:27 | HHI.PR ---
Subjective Remarks 66 YOWM with COPD,Pl eff,DM Had Thoracentesis Feels much better HR high Denies Palpitation or CP Objective Vital Signs Vital Signs Date Time Temp Pulse Resp B/P Pulse Ox O2 Delivery O2 Flow Rate FiO2 02/02/17 18:00 108 02/02/17 16:00 109 02/02/17 16:00 97.6 109 21 157/75 95 02/02/17 14:00 106 02/02/17 12:00 112 02/02/17 12:00 97.4 112 17 107/78 94 02/02/17 12:00 97.4 112 17 107/78 94 02/02/17 11:59 106 20 122/65 98 02/02/17 11:21 99 20 123/76 100 02/02/17 10:00 70 02/02/17 08:32 95 02/02/17 08:00 118 02/02/17 08:00 97.5 123 27 138/83 96 02/02/17 06:00 116 02/02/17 04:00 96 02/02/17 04:00 97.9 98 16 120/61 94 02/02/17 02:00 94 02/02/17 00:00 98.0 96 14 108/53 93 02/02/17 00:00 96 02/01/17 22:00 118 I/O 02/01/17 02/01/17 02/01/17 02/02/17 02/02/17 02/02/17 07:00 15:00 23:00 07:00 15:00 23:00 Intake Total 2116 ml 839 ml 550 ml 725 ml 444 ml 100 ml Output Total 240 ml 900 ml 400 ml 450 ml 250 ml 1350 ml Balance 1876 ml -61 ml 150 ml 275 ml 194 ml -1250 ml Intake Oral 800 ml 240 ml 250 ml 100 ml 444 ml IV Total 1316 ml 599 ml 300 ml 625 ml 100 ml Output Urine Total 240 ml 900 ml 400 ml 450 ml 250 ml 350 ml Stool Total 0 ml 0 ml Drainage Total 1000 ml # Voids 3 1 1 # Bowel Movements 0 0 0 Result Diagram: 02/02/1771202/02/17712 Objective Remarks GENERAL: MBMN WM NAD SKIN: Warm and dry. HEAD: Normocephalic. EYES: No scleral icterus. No injection or drainage. NECK: Supple, trachea midline. No JVD or lymphadenopathy. CARDIOVASCULAR: Regular rate and rhythm without murmurs, gallops, or rubs. RESPIRATORY: Breath sounds equal bilaterally. No accessory muscle use. GASTROINTESTINAL: Abdomen soft, non-tender, nondistended. MUSCULOSKELETAL: No cyanosis, or edema. BACK: Nontender without obvious deformity. No CVA tenderness. A/P Assessment and Plan Pleural effusion, s/p TC AF COPDDM PLAN: Aerosol nebs Cont Abx Wean [address] fluid results Kirt Duncan MD Feb 02, 2017 21:27
[2017-02-02 22:37] LABS: ALBUMIN SPE 3.08 GM/DL (3.50-5.00); ALPHA 1 GLOBULIN 0.45 GM/DL (0.11-0.29); ALPHA 2 GLOBULIN 0.81 GM/DL (0.22-1.00); BETA GLOBULINS (SPE) 0.75 GM/DL (0.53-1.03)
[2017-02-02] MEDS: ATORVASTATIN 40 MG TAB PO SCH (23:27)
[2017-02-03] VITALS (12 sets, daily range): BP systolic 102–138; BP diastolic 56–83; PULSE 74–103; RESP 14–22; TEMP 97–98.2; O2SAT 93–96
[2017-02-03] MEDS: DILTIAZEM HCL 90 MG TAB PO SCH ×2 (01:10→06:33)
[2017-02-03 05:37] LABS: AUTOMATED NEUTROPHIL # 6.1 TH/MM3 (1.8-7.7); BASOPHIL % 0.1 % (0.0-2.0); HEMATOCRIT 36.5 % (39.0-51.0); HEMO FLAGS DIFF FINAL; LYMPH % 6.2 % (9.0-44.0); LYMPHOCYTE # 0.5 TH/MM3 (1.0-4.8); MEAN CELL VOLUME 92.5 FL (80.0-100.0); MEAN CORPUSCULAR HEMOGLOBIN 31.4 PG (27.0-34.0); MONO % 11.5 % (0.0-8.0); NEUT % 82.2 % (16.0-70.0); PLATELET COUNT 149 TH/MM3 (150-450); RED BLOOD COUNT 3.94 MIL/MM3 (4.50-5.90); WHITE BLOOD COUNT 7.5 TH/MM3 (4.0-11.0)
[2017-02-03 06:20] LABS: ALKALINE PHOSPHATASE 85 U/L (45-117); ALT (GPT) 138 U/L (12-78); ANION GAP 13 MEQ/L (5-15); AST (GOT) 38 U/L (15-37); BICARBONATE 22.8 MEQ/L (21.0-32.0); BLOOD UREA NITROGEN 69 MG/DL (7-18); CHLORIDE 91 MEQ/L (98-107); GLOMERULAR FILTRATION RATE 27 ML/MIN (>89); POTASSIUM 4.7 MEQ/L (3.5-5.1); SODIUM (NA) 127 MEQ/L (136-145); TOTAL BILIRUBIN ADULT 2.6 MG/DL (0.2-1.0)
[2017-02-03] MEDS: CEFEPIME INJ 2,000 MG in SODIUM CHLORIDE 0.9% INJ 100 ML IV SCH ×2 (06:34→15:33)
--- NOTE | 2017-02-03 07:02 | PD.CARD.PN ---
Subjective Subjective Remarks Pt without CV complaints Objective Medications Current Medications Medications (Trade) Dose Ordered Sig/Narda Route Start Time Stop Time Status Last Admin Diltiazem HCl 125 mg/Sodium Chloride 125 ml @ 0 mls/hr TITRATE IV 01/31/17 20:30 02/01/17 06:25 (NS 1000 ml Inj) 1,000 ml @ 40 mls/hr Q24H IV 01/31/17 20:27 Hold (Zofran Inj) 4 mg Q6H PRN IVP 01/31/17 20:30 (Milk Of Magnesia Liq) 30 ml Q12H PRN PO 01/31/17 20:30 Naloxone HCl 0.4 mg 0.4 mg UNSCH PRN IV 01/31/17 20:30 (Zithromax Inj/ NS 250 ml Inj) 250 ml @ 250 mls/hr Q24H IV 02/01/17 20:00 02/01/17 22:45 Miscellaneous Information Patient in critical care unit? Ass... [id number] XX 01/31/17 22:30 02/01/17 05:53 (Chlorhexidine 2% Cloth) 3 pack DAILY@04 TOP 02/01/17 04:00 02/05/17 04:01 02/01/17 05:53 (Chlorhexidine 2% Cloth) 3 pack UNSCH PRN TOP 01/31/17 22:30 02/05/17 22:29 (Lipitor) 40 mg HS PO 02/01/17 21:00 02/02/17 23:27 (Theragran) 1 tab DAILY PO 02/01/17 09:00 02/02/17 08:47 (Heparin Inj) 5,000 units UNSCH PRN IV 02/01/17 15:00 Heparin Sodium (Porcine) 2500 units 2,500 units UNSCH PRN IV 02/01/17 15:00 (Heparin-D5W Inj) 250 ml @ 0 mls/hr TITRATE IV 02/01/17 09:00 02/02/17 14:35 Hydralazine HCl 10 mg 10 mg Q8H PRN IV PUSH 02/01/17 08:45 02/01/17 09:24 (Maxipime Inj/NS Inj) 100 ml @ 200 mls/hr Q12H IV 02/01/17 15:00 02/03/17 06:34 (Cardizem) 90 mg Q6HR PO 02/02/17 07:00 02/03/17 06:33 (Lopressor) 25 mg Q12HR PO 02/02/17 09:00 02/02/17 23:27 (Bumex Inj) 2 mg DAILY IV PUSH 02/03/17 09:00 Vital Signs / I&O Vital Signs Date Time Temp Pulse Resp B/P Pulse Ox O2 Delivery O2 Flow Rate FiO2 02/03/17 02:00 80 02/03/17 00:00 80 02/03/17 00:00 97.0 102 14 106/72 95 02/02/17 22:00 104 02/02/17 22:00 104 02/02/17 20:51 97 21 02/02/17 20:00 97.8 86 18 142/66 97 02/02/17 20:00 104 02/02/17 18:00 108 02/02/17 16:00 109 02/02/17 16:00 97.6 109 21 157/75 95 02/02/17 14:00 106 02/02/17 12:00 112 02/02/17 12:00 97.4 112 17 107/78 94 02/02/17 12:00 97.4 112 17 107/78 94 02/02/17 11:59 106 20 122/65 98 02/02/17 11:21 99 20 123/76 100 02/02/17 10:00 70 02/02/17 08:32 95 02/02/17 08:00 118 02/02/17 08:00 97.5 123 27 138/83 96 I/O 02/02/17 02/02/17 02/02/17 02/03/17 02/03/17 02/03/17 07:00 15:00 23:00 07:00 15:00 23:00 Intake Total 725 ml 444 ml 575 ml Output Total 450 ml 250 ml 1750 ml Balance 275 ml 194 ml -1175 ml Intake Oral 100 ml 444 ml 200 ml IV Total 625 ml 375 ml Output Urine Total 450 ml 250 ml 750 ml Stool Total 0 ml 0 ml Drainage Total 1000 ml # Voids 1 1 # Bowel Movements 0 0 Physical Exam GENERAL: Well developed, well nourished. No acute distress. HEENT: Jugular venous pressure is normal. CHEST: Lungs decreased, clear to auscultation bilaterally. Unlabored respiratory effort. CARDIAC: irregular rate and rhythm without S3, S4, or murmur. ABDOMEN: Soft, nontender, no hepatosplenomegaly. Bowel sounds present. EXTREMITIES: No clubbing,1+ edema. Laboratory Laboratory Tests Test 02/02/17 02/02/17 02/02/17 02/03/17 07:13 11:47 20:44 04:26 White Blood Count 8.9 TH/MM3 7.5 TH/MM3 Red Blood Count 4.06 MIL/MM3 3.94 MIL/MM3 Hemoglobin 12.8 GM/DL 12.4 GM/DL Hematocrit 37.9 % 36.5 % Mean Corpuscular Volume 93.4 FL 92.5 FL Mean Corpuscular Hemoglobin 31.5 PG 31.4 PG Mean Corpuscular Hemoglobin 33.8 % 34.0 % Concent Red Cell Distribution Width 18.1 % 18.0 % Platelet Count 144 TH/MM3 149 TH/MM3 Mean Platelet Volume 9.6 FL 9.5 FL Neutrophils (%) (Auto) 84.3 % 82.2 % Lymphocytes (%) (Auto) 4.1 % 6.2 % Monocytes (%) (Auto) 11.4 % 11.5 % Eosinophils (%) (Auto) 0.0 % 0.0 % Basophils (%) (Auto) 0.2 % 0.1 % Neutrophils # (Auto) 7.5 TH/MM3 6.1 TH/MM3 Lymphocytes # (Auto) 0.4 TH/MM3 0.5 TH/MM3 Monocytes # (Auto) 1.0 TH/MM3 0.9 TH/MM3 Eosinophils # (Auto) 0.0 TH/MM3 0.0 TH/MM3 Basophils # (Auto) 0.0 TH/MM3 0.0 TH/MM3 CBC Comment DIFF FINAL DIFF FINAL Differential Comment Activated Partial 41.7 SEC 49.0 SEC 53.0 SEC Thromboplast Time Sodium Level 128 MEQ/L 127 MEQ/L Potassium Level 4.8 MEQ/L 4.7 MEQ/L Chloride Level 93 MEQ/L 91 MEQ/L Carbon Dioxide Level 22.5 MEQ/L 22.8 MEQ/L Anion Gap 13 MEQ/L 13 MEQ/L Blood Urea Nitrogen 68 MG/DL 69 MG/DL Creatinine 2.32 MG/DL 2.44 MG/DL Estimat Glomerular Filtration 28 ML/MIN 27 ML/MIN Rate Random Glucose 146 MG/DL 133 MG/DL Calcium Level 8.1 MG/DL 7.9 MG/DL Total Bilirubin 2.9 MG/DL 2.6 MG/DL Aspartate Amino Transf 49 U/L 38 U/L (AST/SGOT) Alanine Aminotransferase 179 U/L 138 U/L (ALT/SGPT) Alkaline Phosphatase 95 U/L 85 U/L Lactate Dehydrogenase 226 U/L C-Reactive Protein 14.50 MG/DL Total Protein 6.4 GM/DL 5.9 GM/DL Albumin 2.5 GM/DL 2.2 GM/DL Albumin/Globulin Ratio 0.93 Gjzcv-5-Xnftjvdhp 0.45 GM/DL Ucajc-4-Tyhbkgtjc 0.81 GM/DL Beta Globulins 0.75 GM/DL Gamma Globulins 1.31 GM/DL Pleural Fluid WBC 441 /MM3 Pleural Fluid RBC 610 /MM3 Pleural Fluid Neutrophils 27 % Pleural Fluid Lymphocytes 65 % Pleural Fluid Monocytes 6 % Pleural Fluid Histiocytes 2 % Pleural Fluid Total Protein 2.0 GM/DL Pleural Fluid LDH 193 U/L Pleural Fluid Glucose 127 MG/DL Assessment and Plan Assessment and Plan Atrial fibrillation - The patient has new onset atrial fibrillation. -continue transition from cardizem to metoprolol -CHADS-VASc score=3, HTN, CHF/EF 25%, possibly for diabetes. Cardiomyopathy- EF 25% acute systolic CHF -pt declined nuc or cath...wants as outpatient (but will think about it) -he is aware of high risk for sudden -optimize med therapy Pneumonia - This is being managed by the primary team. Acute renal insufficiency - This is being managed by the primary team. Elevated LFTs - We will use caution with his p.o. medications. Hyponatremia - This is being managed by primary team. Leonora Warner MD Feb 03, 2017 07:02
--- NOTE | 2017-02-03 08:23 | HHI.NPPN ---
Subjective Complaints: Shortness of Breath General Problems: Edema, Hypertension Renal Failure: Acute Interval History he is comfortable. Notes were reviewed. He has anasarca: ascites, lower extremity edema, pleural fluid. EF is 25 %. New onset atrial fibrillation. Possible pneumonia. Review of Systems General Constitutional: Fatigue Respiratory Lungs: SOB, Cough Cardiovascular Cardiac: Edema Objective Data Data 02/02/17 02/03/17 19:00 07:00 Intake Total 544 ml 805 ml Output Total 1600 ml 800 ml Balance -1056 ml 5 ml Intake Oral 444 ml 350 ml IV Total 100 ml 455 ml Output Urine Total 600 ml 800 ml Stool Total 0 ml Drainage Total 1000 ml # Voids 2 2 # Bowel Movements 0 Vital Signs Date Time Temp Pulse Resp B/P Pulse Ox O2 Delivery O2 Flow Rate FiO2 02/03/17 06:00 80 02/03/17 04:00 80 02/03/17 04:00 98.0 103 22 138/73 96 02/03/17 02:00 80 02/03/17 00:00 80 02/03/17 00:00 97.0 102 14 106/72 95 02/02/17 22:00 104 02/02/17 22:00 104 02/02/17 20:51 97 21 02/02/17 20:00 97.8 86 18 142/66 97 02/02/17 20:00 104 02/02/17 18:00 108 02/02/17 16:00 109 02/02/17 16:00 97.6 109 21 157/75 95 02/02/17 14:00 106 02/02/17 12:00 112 02/02/17 12:00 97.4 112 17 107/78 94 02/02/17 12:00 97.4 112 17 107/78 94 02/02/17 11:59 106 20 122/65 98 02/02/17 11:21 99 20 123/76 100 02/02/17 10:00 70 02/02/17 08:32 95 -: 02/03/17 0426 02/03/17 0426 Microbiology 02/02/17 Gram Stain, Received Pending 02/02/17 Body Fluid Culture, Received Pending 02/02/17 Gram Stain, Received Pending 02/02/17 Body Fluid Culture, Received Pending 02/02/17 Acid Fast Stain, Received Pending 02/02/17 Mycobacterial Culture, Received Pending 02/02/17 Fungal Smear, Received Pending 02/02/17 Fungal Culture, Received Pending Physical Exam General Appearance: Well Developed, Well Nourished, Comfortable Throat Throat Exam: Oral Mucosa [place] & Moist Pulmonary Resp Exam: Breath Sounds Equal, No Distress Gastrointestinal/Abdomen GI Exam: Soft, Non-Tender Musculoskeletal MS Exam: Joints Intact, Normal Tone Integumentary Skin Exam: Warm, Dry Extremeties Extremities Exam: Pedal Pulses Palpable, Moderate Edema Neurologic Neuro Exam: Alert, Awake, Oriented, Speech Clear, Moving All Extremities Psychiatric Psych Exam: Appropriate Responses Assessment/Plan Discussed Condition With: Patient Assessment Summary: VERONICA/Acute Renal Failure, Hypertension, Diabetes Mellitus Problem List: (1) Acute kidney failure Plan: Baseline renal function is not known. Likely has underlying CKD, has cardiorenal syndrome. his creatinine is slightly worse today Volume overload persists. Continue diuretics. Avoid nephrotoxic agents. HIV, hepatitis profile, JAVAN negative. (2) Hyponatremia Plan: hypervolemic hyponatremia continue on Bumex 2 mg IV daily, Needs to be on fluid restriction. (3) Abnormal gallbladder ultrasound Plan: MRCP reviewed, he does have large gallstone GI and surgery consulted, no plans for surgery at this time he also has ascites on imaging await further recommendations (4) Atrial flutter with rapid ventricular response Plan: new onset, cardiology following Cardizem gtt d/c, on oral Cardizem and metoprolol Chads Vasc score 2, on heparin gtt (5) Pneumonia Plan: ID consulted He is now on Cefepime. (6) Thrombocytopenia Plan: Resolved. LDH is not high. (7) Pleural effusion Plan: s/p thoracentesis. Pulmonary following. Problem Qualifiers (1) Pneumonia: Qualified Code: J18.1 - Pneumonia of right lower lobe due to infectious organism Noe Kapoor MD Feb 03, 2017 08:23
[2017-02-03] MEDS ORDERED: BUMETANIDE INJ 1 MG/4 ML VIAL IV PUSH SCH (09:00)
[2017-02-03] MEDS: MULTIVITAMIN TAB PO SCH (09:34)
[2017-02-03] MEDS: METOPROLOL TARTRATE 25 MG TAB PO SCH ×3 (09:38→21:24)
--- NOTE | 2017-02-03 10:02 | HHI.GIFU ---
Subjective Remarks Resting in bed. Had thoracentesis yesterday. Tolerating diet. No n/v/ abdominal pain. (Ami Jean) Objective Vitals I&O Vital Signs Date Time Temp Pulse Resp B/P Pulse Ox O2 Delivery O2 Flow Rate FiO2 02/03/17 06:00 80 02/03/17 04:00 80 02/03/17 04:00 98.0 103 22 138/73 96 02/03/17 02:00 80 02/03/17 00:00 80 02/03/17 00:00 97.0 102 14 106/72 95 02/02/17 22:00 104 02/02/17 22:00 104 02/02/17 20:51 97 21 02/02/17 20:00 97.8 86 18 142/66 97 02/02/17 20:00 104 02/02/17 18:00 108 02/02/17 16:00 109 02/02/17 16:00 97.6 109 21 157/75 95 02/02/17 14:00 106 02/02/17 12:00 112 02/02/17 12:00 97.4 112 17 107/78 94 02/02/17 12:00 97.4 112 17 107/78 94 02/02/17 11:59 106 20 122/65 98 02/02/17 11:21 99 20 123/76 100 I/O 02/02/17 02/02/17 02/02/17 02/03/17 02/03/17 02/03/17 07:00 15:00 23:00 07:00 15:00 23:00 Intake Total 725 ml 444 ml 575 ml 330 ml Output Total 450 ml 250 ml 1750 ml 400 ml Balance 275 ml 194 ml -1175 ml -70 ml Intake Oral 100 ml 444 ml 200 ml 150 ml IV Total 625 ml 375 ml 180 ml Output Urine Total 450 ml 250 ml 750 ml 400 ml Stool Total 0 ml 0 ml Drainage Total 1000 ml # Voids 1 1 2 # Bowel Movements 0 0 Laboratory Laboratory Tests Test 02/02/17 02/02/17 02/03/17 11:47 20:44 04:26 Pleural Fluid WBC 441 Pleural Fluid RBC 610 Pleural Fluid Neutrophils 27 Pleural Fluid Lymphocytes 65 Pleural Fluid Monocytes 6 Pleural Fluid Histiocytes 2 Pleural Fluid Total Protein 2.0 Pleural Fluid LDH 193 Pleural Fluid Glucose 127 Activated Partial 49.0 53.0 Thromboplast Time White Blood Count 7.5 Red Blood Count 3.94 Hemoglobin 12.4 Hematocrit 36.5 Mean Corpuscular Volume 92.5 Mean Corpuscular Hemoglobin 31.4 Mean Corpuscular Hemoglobin 34.0 Concent Red Cell Distribution Width 18.0 Platelet Count 149 Mean Platelet Volume 9.5 Neutrophils (%) (Auto) 82.2 Lymphocytes (%) (Auto) 6.2 Monocytes (%) (Auto) 11.5 Eosinophils (%) (Auto) 0.0 Basophils (%) (Auto) 0.1 Neutrophils # (Auto) 6.1 Lymphocytes # (Auto) 0.5 Monocytes # (Auto) 0.9 Eosinophils # (Auto) 0.0 Basophils # (Auto) 0.0 CBC Comment DIFF FINAL Differential Comment Sodium Level 127 Potassium Level 4.7 Chloride Level 91 Carbon Dioxide Level 22.8 Anion Gap 13 Blood Urea Nitrogen 69 Creatinine 2.44 Estimat Glomerular Filtration 27 Rate Random Glucose 133 Calcium Level 7.9 Total Bilirubin 2.6 Aspartate Amino Transf 38 (AST/SGOT) Alanine Aminotransferase 138 (ALT/SGPT) Alkaline Phosphatase 85 Total Protein 5.9 Albumin 2.2 Date/Time Procedure Status Source Growth 02/02/17 11:47 Gram Stain - Final Resulted Fluid Pleural Fluid 02/02/17 11:47 Body Fluid Culture Resulted Fluid Pleural Fluid Pending 02/02/17 11:47 Fungal Smear Received Fluid Pleural Fluid Pending 02/02/17 11:47 Fungal Culture Received Fluid Pleural Fluid Pending 02/02/17 11:47 Acid Fast Stain Received Fluid Pleural Fluid Pending 02/02/17 11:47 Mycobacterial Culture Received Fluid Pleural Fluid Pending 02/02/17 11:47 Cancelled Fluid Pleural Fluid 01/31/17 21:18 Aerobic Blood Culture - Preliminary Resulted Blood Peripheral NO GROWTH IN 2 DAYS 01/31/17 21:18 Anaerobic Blood Culture - Preliminary Resulted Blood Peripheral NO GROWTH IN 2 DAYS Imaging Last Impressions Thoracentesis Ultrasound 02/02/17 0000 Signed Impressions: Service Date/Time: Thursday, February 02, 2017 11:24 - CONCLUSION: Uncomplicated ultrasound guided thoracentesis. Eliud Garces MD FACR Chest X-Ray 02/02/17 0000 Signed Impressions: Service Date/Time: Thursday, February 02, 2017 12:13 - CONCLUSION: Negative for pneumothorax. Consolidative changes and minimal fluid persists on the right. Eliud Garces MD FACR Cholangiopancreatography MRI 02/01/17 0000 Signed Impressions: Service Date/Time: Wednesday, February 01, 2017 18:17 - CONCLUSION: 1. There is a large gallstone in the gallbladder. 2. No definite biliary tract obstruction. 3. There is a small amount of ascites in the upper abdomen with nonspecific edema in the mesenteric fat. Cem Lee MD Chest Ultrasound 02/01/17 0000 Signed Impressions: Service Date/Time: Wednesday, February 01, 2017 15:28 - CONCLUSION: Right pleural effusion. Christos Euceda MD Chest CT 02/01/17 0000 Signed Impressions: Service Date/Time: Wednesday, February 01, 2017 17:48 - CONCLUSION: 1. Large right-sided pleural effusion with parenchymal consolidation in the right lower lung. 2. Small left effusion. Cem Lee MD Abdomen/Pelvis CT 02/01/17 0000 Signed Impressions: Service Date/Time: Wednesday, February 01, 2017 17:48 - CONCLUSION: 1. Small to moderate amount of ascitic fluid with nonspecific bowel gas pattern. His findings are nonspecific. Infection cannot be excluded. There is no distinct focal abscess on this noncontrast study performed without oral contrast. 2. Densely calcified gallstone. 3. Moderate size right pleural effusion consolidation and possible rounded atelectasis in the right lower lobe. There is a smaller left effusion. Jacob Graham MD Abdomen X-Ray 01/31/17 1807 Signed Impressions: Service Date/Time: Tuesday, January 31, 2017 18:27 - CONCLUSION: 1. Nonspecific bowel gas pattern. 2. Calcification right upper quadrant most likely representing a gallstone. Cem Lee MD Gall Bladder Ultrasound 01/31/17 0000 Signed Impressions: Service Date/Time: Tuesday, January 31, 2017 20:24 - CONCLUSION: 1. Cholelithiasis with mild gallbladder wall thickening. 2. Moderate to large right effusion. 3. Ascitic fluid in the right lower quadrant. Jacob Graham MD Physical Exam HEENT: Normocephalic; atraumatic; no jaundice. CHEST: CTA CARDIAC: RRR ABDOMEN: Soft, nondistended, nontender; no hepatosplenomegaly; bowel sounds are present in all four quadrants. EXTREMITIES: Mild BLE edema. SKIN: Normal; no rash; no jaundice. COMBINING MACHINE OPERATOR: No focal deficits; alert and oriented times three. (Ami Jean) Assessment and Plan Plan ASSESSMENT: - Elevated LFTs. Gall Bladder Ultrasound (01/31/17)----> 1. Cholelithiasis with mild gallbladder wall thickening. 2. Moderate to large right effusion. 3. Ascitic fluid in the right lower quadrant. Abdomen/ Pelvis CT (02/01/17)----> 1. Small to moderate amount of ascitic fluid with nonspecific bowel gas pattern. His findings are nonspecific. Infection cannot be excluded. There is no distinct focal abscess on this noncontrast study performed without oral contrast. 2. Densely calcified gallstone. 3. Moderate size right pleural effusion consolidation and possible rounded atelectasis in the right lower lobe. There is a smaller left effusion. MRCP (02/01/17)----> 1. There is a large gallstone in the gallbladder. 2. No definite biliary tract obstruction. 3. There is a small amount of ascites in the upper abdomen with nonspecific edema in the mesenteric fat. Hepatitis panel negative. JAVAN negative, ASMA neg, AMA pending, Ferritin 531, Iron saturation 8.4%, AFP 6.3, Ceruloplasmin pending. Alpha 1 Antitrypsin 289. LFTs improving, T. Bili 2.96, AST 38, ALT 138, Alk phosph 85. LFTs slowly improving. This is likely related to hepatic congestion. - Cholelithiasis with gb wall thickening. S/P GS evaluation, no plans for cholecystomy tube at this time. - PNA with right pleural effusion. Diuretics. Scheduled for thoracentesis today. - CHF, CMP, EF 20-25%, Aflutter. Rate controlled. Cardiology following. - VERONICA, Hyponatremia. Creat 2.32. Na+ 127. - Anemia. Mild 12.4/36.5. Plan - Heart healthy diet - Await AMA - Await Ceruloplasmin - Monitor LFTs - Avoid hepatotoxic medications - LFTs slowly trending down. Most likely related to hepatic congestion. GI will sign off, please reconsult as needed - Pt seen and examined by Dr. Malave and myself and this note is written on his behalf (Ami Jean) Physician Comments Seen and examined with HEEL SHAVER, doing better LFTs improving. Gi will sign off, reconsult as needed. Thank you (Raghavendra Malave MD) Ami Jean Feb 03, 2017 10:02 Raghavendra Malave MD Feb 03, 2017 13:35
--- NOTE | 2017-02-03 12:05 | HHI.PR ---
Subjective Remarks Follow-up atrial flutter with RVR/right pleural effusion status post thoracentesis/anasarca/community-acquired pneumonia 02/03/17-patient seen and examined, status post right sided pleurocentesis and patient currently denies any chest pain or shortness of breath. Objective Vitals Vital Signs Date Time Temp Pulse Resp B/P Pulse Ox O2 Delivery O2 Flow Rate FiO2 02/03/17 10:00 90 02/03/17 08:00 85 02/03/17 06:00 80 02/03/17 04:00 80 02/03/17 04:00 98.0 103 22 138/73 96 02/03/17 02:00 80 02/03/17 00:00 80 02/03/17 00:00 97.0 102 14 106/72 95 02/02/17 22:00 104 02/02/17 22:00 104 02/02/17 20:51 97 21 02/02/17 20:00 97.8 86 18 142/66 97 02/02/17 20:00 104 02/02/17 18:00 108 02/02/17 16:00 109 02/02/17 16:00 97.6 109 21 157/75 95 02/02/17 14:00 106 I/O 02/02/17 02/02/17 02/02/17 02/03/17 02/03/17 02/03/17 06:59 14:59 22:59 06:59 14:59 22:59 Intake Total 725 ml 444 ml 575 ml 330 ml Output Total 450 ml 250 ml 1750 ml 400 ml Balance 275 ml 194 ml -1175 ml -70 ml Intake Oral 100 ml 444 ml 200 ml 150 ml IV Total 625 ml 375 ml 180 ml Output Urine Total 450 ml 250 ml 750 ml 400 ml Stool Total 0 ml 0 ml Drainage Total 1000 ml # Voids 1 1 2 # Bowel Movements 0 0 Result Diagram: 02/03/17 0426 02/03/17 0426 Imaging Last Impressions Thoracentesis Ultrasound 02/02/17 0000 Signed Impressions: Service Date/Time: Thursday, February 02, 2017 11:24 - CONCLUSION: Uncomplicated ultrasound guided thoracentesis. Eliud Garces MD FACR Chest X-Ray 02/02/17 0000 Signed Impressions: Service Date/Time: Thursday, February 02, 2017 12:13 - CONCLUSION: Negative for pneumothorax. Consolidative changes and minimal fluid persists on the right. Eliud Garces MD FACR Cholangiopancreatography MRI 02/01/17 0000 Signed Impressions: Service Date/Time: Wednesday, February 01, 2017 18:17 - CONCLUSION: 1. There is a large gallstone in the gallbladder. 2. No definite biliary tract obstruction. 3. There is a small amount of ascites in the upper abdomen with nonspecific edema in the mesenteric fat. Cem Lee MD Chest Ultrasound 02/01/17 0000 Signed Impressions: Service Date/Time: Wednesday, February 01, 2017 15:28 - CONCLUSION: Right pleural effusion. Christos Euceda MD Chest CT 02/01/17 0000 Signed Impressions: Service Date/Time: Wednesday, February 01, 2017 17:48 - CONCLUSION: 1. Large right-sided pleural effusion with parenchymal consolidation in the right lower lung. 2. Small left effusion. Cem Lee MD Abdomen/Pelvis CT 02/01/17 0000 Signed Impressions: Service Date/Time: Wednesday, February 01, 2017 17:48 - CONCLUSION: 1. Small to moderate amount of ascitic fluid with nonspecific bowel gas pattern. His findings are nonspecific. Infection cannot be excluded. There is no distinct focal abscess on this noncontrast study performed without oral contrast. 2. Densely calcified gallstone. 3. Moderate size right pleural effusion consolidation and possible rounded atelectasis in the right lower lobe. There is a smaller left effusion. Jacob Graham MD Abdomen X-Ray 01/31/17 1807 Signed Impressions: Service Date/Time: Tuesday, January 31, 2017 18:27 - CONCLUSION: 1. Nonspecific bowel gas pattern. 2. Calcification right upper quadrant most likely representing a gallstone. Cem Lee MD Gall Bladder Ultrasound 01/31/17 0000 Signed Impressions: Service Date/Time: Tuesday, January 31, 2017 20:24 - CONCLUSION: 1. Cholelithiasis with mild gallbladder wall thickening. 2. Moderate to large right effusion. 3. Ascitic fluid in the right lower quadrant. Jacob Graham MD Objective Remarks GENERAL: NAD SKIN: Warm and dry. HEAD: Normocephalic. EYES: No scleral icterus. No injection or drainage. NECK: Supple, trachea midline. No JVD or lymphadenopathy. CARDIOVASCULAR: Irregular Regular rate and rhythm without murmurs, gallops, or rubs. RESPIRATORY: Breath sounds equal bilaterally. No accessory muscle use. GASTROINTESTINAL: Abdomen soft, non-tender, nondistended. MUSCULOSKELETAL: No cyanosis, positive for anasarca BACK: Nontender without obvious deformity. No CVA tenderness. Procedures none A/P Problem List: (1) Pneumonia ICD Code: J18.9 Status: Acute (2) Atrial flutter with rapid ventricular response ICD Code: I48.92 Status: Acute (3) Abdominal pain ICD Code: R10.9 Status: Acute (4) Acute kidney failure ICD Code: N17.9 Status: Acute (5) Elevated LFTs ICD Code: R94.5 Status: Acute (6) Edema ICD Code: R60.9 Status: Acute (7) Hyponatremia ICD Code: E87.1 Status: Acute (8) Lactic acidosis ICD Code: E87.2 Status: Acute (9) Pleural effusion ICD Code: J90 Status: Acute Assessment and Plan 66-year-old man with Pneumonia with right pleural effusion -continue IV antibiotic including cefepime -s/p thoracentesis 02/02/17 -ID and pulmonary following Cardiomyopathy echo with EF 20-25% and diffuse hypokinesis, however patient declined nuclear or left heart catheterization continue diuretic including Bumex 2 mg IV daily cardiology following. Cholelithiasis - surgery evaluation appreciated; no plan for surgery at this time -Hepatitis profile negative elevated LFT's- likely due to liver congestion due to CHF MRCP with a large gallstone in the gallbladder. No definite biliary tract obstruction. and a small amount of ascites in the upper abdomen with nonspecific edema in the mesenteric fat. - hepatitis panel negative -GI following. Atrial fibrillation with RVR -on metoprolol -on Heparin drip -Cardiology following renal insufficiency with unknown duration -Appreciate input from nephrology -SPEP pending -Trend CMP -Avoid nephrotoxic drugs Hyponatremia likely due to fluid overload- continue diuretics and will monitor the level DVT prophylaxis: Heparin Problem Qualifiers (1) Pneumonia: Qualified Code: J18.1 - Pneumonia of right lower lobe due to infectious organism Naif Orozco MD Feb 03, 2017 12:05
--- NOTE | 2017-02-03 13:12 | HHI.IDPN ---
Subjective Subjective Remarks Mr. Torres is a 66 y/o CM with PMHx of DM, HTN, Hyperlipidemia and COPD who reports he was recently told he had fluid collection on right side of his lung and underwent thoracentesis. He does not think he was treated with any antibiotics. [facility] and he [facility] a CT chest which was abnormal. Patient was recommended immediate admission through ED. Patient did not want to be admitted so blood work was done. Once the labs were reported as abnormal he was sent to [facility] [address] for further workup and evaluation. Patient reports that a day prior to admission he felt dizzy and lost his balance and fell. He denies loss of consciousness, but does have pain in the sacral region where he landed. He complains of a dry cough with no sputum production and increased swelling in his legs. He is also complaining of swelling and pain on the right side of his abdomen. He states he feels feverish but no documented temp. He denies any chest pain, chills, nausea, vomiting, constipation or diarrhea. He told other MDs he was on Lev[facility] from [facility] but is unsure when he last took it. ID is consulted for evaluation and Mment of right side empyema and pneumonia. Overnight events reviewed. s/p thoracentesis: fluid not c/w infection based on chemistry and cell count, cultures pending. Able to breathe better. No fever No rash No diarrhea Antibiotics cefepime IV Lines Line sites with no e.o infection Past Medical History reviewed Allergies: Coded Allergies: Lisinopril (Verified Allergy, Intermediate, COUGH, 01/31/17) Objective . Vital Signs Date Time Temp Pulse Resp B/P Pulse Ox O2 Delivery O2 Flow Rate FiO2 02/03/17 10:00 90 02/03/17 08:00 85 02/03/17 06:00 80 02/03/17 04:00 80 02/03/17 04:00 98.0 103 22 138/73 96 02/03/17 02:00 80 02/03/17 00:00 80 02/03/17 00:00 97.0 102 14 106/72 95 02/02/17 22:00 104 02/02/17 22:00 104 02/02/17 20:51 97 21 02/02/17 20:00 97.8 86 18 142/66 97 02/02/17 20:00 104 02/02/17 18:00 108 02/02/17 16:00 109 02/02/17 16:00 97.6 109 21 157/75 95 02/02/17 14:00 106 02/02/17 02/02/17 02/03/17 15:00 23:00 07:00 Intake Total 444 ml 575 ml 330 ml Output Total 250 ml 1750 ml 400 ml Balance 194 ml -1175 ml -70 ml Intake Oral 444 ml 200 ml 150 ml IV Total 375 ml 180 ml Output Urine Total 250 ml 750 ml 400 ml Stool Total 0 ml 0 ml Drainage Total 1000 ml # Voids 1 1 2 # Bowel Movements 0 0 . Laboratory Tests Test 02/02/17 02/03/17 07:13 04:26 White Blood Count 8.9 TH/MM3 7.5 TH/MM3 Red Blood Count 4.06 MIL/MM3 3.94 MIL/MM3 Hemoglobin 12.8 GM/DL 12.4 GM/DL Hematocrit 37.9 % 36.5 % Mean Corpuscular Volume 93.4 FL 92.5 FL Mean Corpuscular Hemoglobin 31.5 PG 31.4 PG Mean Corpuscular Hemoglobin 33.8 % 34.0 % Concent Red Cell Distribution Width 18.1 % 18.0 % Platelet Count 144 TH/MM3 149 TH/MM3 Mean Platelet Volume 9.6 FL 9.5 FL Neutrophils (%) (Auto) 84.3 % 82.2 % Lymphocytes (%) (Auto) 4.1 % 6.2 % Monocytes (%) (Auto) 11.4 % 11.5 % Eosinophils (%) (Auto) 0.0 % 0.0 % Basophils (%) (Auto) 0.2 % 0.1 % Neutrophils # (Auto) 7.5 TH/MM3 6.1 TH/MM3 Lymphocytes # (Auto) 0.4 TH/MM3 0.5 TH/MM3 Monocytes # (Auto) 1.0 TH/MM3 0.9 TH/MM3 Eosinophils # (Auto) 0.0 TH/MM3 0.0 TH/MM3 Basophils # (Auto) 0.0 TH/MM3 0.0 TH/MM3 CBC Comment DIFF FINAL DIFF FINAL Differential Comment Laboratory Tests Test 02/01/17 02/02/17 02/03/17 15:23 07:13 04:26 Iron Level 26 MCG/DL Total Iron Binding Capacity 309 MCG/DL Percent Iron Saturation 8.4 % Ferritin 531 NG/ML Tumor Marker Alpha Fetoprotein 6.3 NG/ML [id number] 289 mg/dL Sodium Level 128 MEQ/L 127 MEQ/L Potassium Level 4.8 MEQ/L 4.7 MEQ/L Chloride Level 93 MEQ/L 91 MEQ/L Carbon Dioxide Level 22.5 MEQ/L 22.8 MEQ/L Anion Gap 13 MEQ/L 13 MEQ/L Blood Urea Nitrogen 68 MG/DL 69 MG/DL Creatinine 2.32 MG/DL 2.44 MG/DL Estimat Glomerular Filtration 28 ML/MIN 27 ML/MIN Rate Random Glucose 146 MG/DL 133 MG/DL Calcium Level 8.1 MG/DL 7.9 MG/DL Total Bilirubin 2.9 MG/DL 2.6 MG/DL Aspartate Amino Transf 49 U/L 38 U/L (AST/SGOT) Alanine Aminotransferase 179 U/L 138 U/L (ALT/SGPT) Alkaline Phosphatase 95 U/L 85 U/L Lactate Dehydrogenase 226 U/L C-Reactive Protein 14.50 MG/DL Total Protein 6.4 GM/DL 5.9 GM/DL Albumin 2.5 GM/DL 2.2 GM/DL Albumin/Globulin Ratio 0.93 Wgmte-[id number] 0.45 GM/DL Remfo-3-Yaufjffvu 0.81 GM/DL Beta Globulins 0.75 GM/DL Gamma Globulins 1.31 GM/DL Electrophoresis Pathologist Comment Microbiology Date/Time Procedure Status Source Growth 01/31/17 21:00 Aerobic Blood Culture - Preliminary Resulted Blood Peripheral NO GROWTH IN 3 DAYS 01/31/17 21:00 Anaerobic Blood Culture - Preliminary Resulted Blood Peripheral NO GROWTH IN 3 DAYS 01/31/17 21:18 Aerobic Blood Culture - Preliminary Resulted Blood Peripheral NO GROWTH IN 3 DAYS 01/31/17 21:18 Anaerobic Blood Culture - Preliminary Resulted Blood Peripheral NO GROWTH IN 3 DAYS 02/02/17 11:47 Gram Stain - Final Resulted Fluid Pleural Fluid 02/02/17 11:47 Body Fluid Culture - Preliminary Resulted Fluid Pleural Fluid NO GROWTH IN 24 HOURS. 02/02/17 11:47 Cancelled Fluid Pleural Fluid 02/02/17 11:47 Acid Fast Stain - Final Resulted Fluid Pleural Fluid NO ACID FAST BACILLI SEEN 02/02/17 11:47 Mycobacterial Culture Resulted Fluid Pleural Fluid Pending 02/02/17 11:47 Fungal Smear - Final Resulted Fluid Pleural Fluid NO FUNGAL ELEMENTS SEEN. 02/02/17 11:47 Fungal Culture Resulted Fluid Pleural Fluid Pending Imaging Last Impressions Thoracentesis Ultrasound 02/02/17 0000 Signed Impressions: Service Date/Time: Thursday, February 02, 2017 11:24 - CONCLUSION: Uncomplicated ultrasound guided thoracentesis. Eliud Garces MD FACR Chest X-Ray 02/02/17 0000 Signed Impressions: Service Date/Time: Thursday, February 02, 2017 12:13 - CONCLUSION: Negative for pneumothorax. Consolidative changes and minimal fluid persists on the right. Eliud Garces MD FACR Cholangiopancreatography MRI 02/01/17 0000 Signed Impressions: Service Date/Time: Wednesday, February 01, 2017 18:17 - CONCLUSION: 1. There is a large gallstone in the gallbladder. 2. No definite biliary tract obstruction. 3. There is a small amount of ascites in the upper abdomen with nonspecific edema in the mesenteric fat. Cem Lee MD Chest Ultrasound 02/01/17 0000 Signed Impressions: Service Date/Time: Wednesday, February 01, 2017 15:28 - CONCLUSION: Right pleural effusion. Christos Euceda MD Chest CT 02/01/17 0000 Signed Impressions: Service Date/Time: Wednesday, February 01, 2017 17:48 - CONCLUSION: 1. Large right-sided pleural effusion with parenchymal consolidation in the right lower lung. 2. Small left effusion. Cem Lee MD Abdomen/Pelvis CT 02/01/17 0000 Signed Impressions: Service Date/Time: Wednesday, February 01, 2017 17:48 - CONCLUSION: 1. Small to moderate amount of ascitic fluid with nonspecific bowel gas pattern. His findings are nonspecific. Infection cannot be excluded. There is no distinct focal abscess on this noncontrast study performed without oral contrast. 2. Densely calcified gallstone. 3. Moderate size right pleural effusion consolidation and possible rounded atelectasis in the right lower lobe. There is a smaller left effusion. Jacob Graham MD Abdomen X-Ray 01/31/17 1807 Signed Impressions: Service Date/Time: Tuesday, January 31, 2017 18:27 - CONCLUSION: 1. Nonspecific bowel gas pattern. 2. Calcification right upper quadrant most likely representing a gallstone. Cem Lee MD Gall Bladder Ultrasound 01/31/17 0000 Signed Impressions: Service Date/Time: Tuesday, January 31, 2017 20:24 - CONCLUSION: 1. Cholelithiasis with mild gallbladder wall thickening. 2. Moderate to large right effusion. 3. Ascitic fluid in the right lower quadrant. Jacob Graham MD Physical Exam GENERAL: This is a well-nourished, well-developed patient, in no apparent distress. SKIN: No rashes, ecchymoses or lesions. Cool and dry. HEAD: Atraumatic. Normocephalic. No temporal or scalp tenderness. EYES: Pupils equal round and reactive. Extraocular motions intact. No scleral icterus. No injection or drainage. ENT: Nose without bleeding, purulent drainage or septal hematoma. Throat without erythema, tonsillar hypertrophy or exudate. Uvula midline. Airway patent. NECK: Trachea midline. Supple, nontender, no meningeal signs. CARDIOVASCULAR: ? systolic murmur. RESPIRATORY: Clear to auscultation. Breath sounds decreased on right side. GASTROINTESTINAL: Abdomen soft, distended. MUSCULOSKELETAL: Extremities without clubbing, cyanosis. 1-2 + pedal edema. ? anasarca with abdominal wall edema as well. NEUROLOGICAL: Awake and alert. grossly non focal Psych: cooperative IV line sites with no e.o infection. Assessment & Plan Remarks Possible Pneumonia Right side effusion : needs thoracentesis(infectious vs cardiopulm non infectious effusion) and possibly bronchoscopy. LV dilated, EF 20-25% cardiomyopathy. Tricuspid moderate regurgitation with dilatation of right atrium. Moderate mitral regurgitation with dilatation of left atrium. Right side abdomen ? ascitic fluid. GB enlarged on imaging but clinically no signs of tenderness, no fever. Anasarca: ? nutritional, ? component of cardiac issues. Abnormal LFTs: alcohol, ? cardiac. Acute renal failure: ? cardiac related low output state, ? was on lasix outpatient. Thrombocytopenia Recs: Agree with Pulm consult. Needs Thoracentesis for sure plus Bronchoscopy depending on CT findings. Continue cefepime IV HIV negative Follow cultures Follow clinically. I will be OOT from 02/04/17 to 02/11/17 other ID MDs to cover for me. Edie Vega MD Feb 03, 2017 13:12
[2017-02-03] MEDS: HEPARIN-D5W INJ 250 ML IV SCH (15:36)
--- NOTE | 2017-02-03 16:48 | HHI.PR ---
Subjective Remarks 66 YOWM with COPD,Pl eff,DM Had Thoracentesis Feels much better Denies Palpitation or CP pl fluid cultures negative Objective Vital Signs Vital Signs Date Time Temp Pulse Resp B/P Pulse Ox O2 Delivery O2 Flow Rate FiO2 02/03/17 16:00 97.9 88 18 102/83 93 02/03/17 16:00 85 02/03/17 14:00 87 02/03/17 12:00 90 02/03/17 12:00 97.8 74 20 123/77 93 02/03/17 10:00 90 02/03/17 08:00 98.2 94 18 117/73 94 02/03/17 08:00 85 02/03/17 06:00 80 02/03/17 04:00 80 02/03/17 04:00 98.0 103 22 138/73 96 02/03/17 02:00 80 02/03/17 00:00 80 02/03/17 00:00 97.0 102 14 106/72 95 02/02/17 22:00 104 02/02/17 22:00 104 02/02/17 20:51 97 21 02/02/17 20:00 97.8 86 18 142/66 97 02/02/17 20:00 104 02/02/17 18:00 108 I/O 02/02/17 02/02/17 02/02/17 02/03/17 02/03/17 02/03/17 07:00 15:00 23:00 07:00 15:00 23:00 Intake Total 725 ml 444 ml 575 ml 330 ml 90 ml Output Total 450 ml 250 ml 1750 ml 400 ml 520 ml Balance 275 ml 194 ml -1175 ml -70 ml -430 ml Intake Oral 100 ml 444 ml 200 ml 150 ml IV Total 625 ml 375 ml 180 ml 90 ml Output Urine Total 450 ml 250 ml 750 ml 400 ml 520 ml Stool Total 0 ml 0 ml Drainage Total 1000 ml # Voids 1 1 2 # Bowel Movements 0 0 Result Diagram: 02/03/17 0426 02/03/17 042 Objective Remarks GENERAL: MBMN WM NAD SKIN: Warm and dry. HEAD: Normocephalic. EYES: No scleral icterus. No injection or drainage. NECK: Supple, trachea midline. No JVD or lymphadenopathy. CARDIOVASCULAR: Regular rate and rhythm without murmurs, gallops, or rubs. RESPIRATORY: Breath sounds equal bilaterally. No accessory muscle use. GASTROINTESTINAL: Abdomen soft, non-tender, nondistended. MUSCULOSKELETAL: No cyanosis, or edema. BACK: Nontender without obvious deformity. No CVA tenderness. A/P Assessment and Plan Pleural effusion, s/p TC AF COPDDM PLAN: Aerosol nebs Cont Abx Wean 02 HR controll Stable to transfer frpm pulm standpoint Kirt Duncan MD Feb 03, 2017 16:48
[2017-02-03] MEDS: ATORVASTATIN 40 MG TAB PO SCH (21:24)
[2017-02-04] VITALS (9 sets, daily range): BP systolic 95–134; BP diastolic 69–101; PULSE 58–131; RESP 18–20; TEMP 96.7–98.1; O2SAT 94–99
[2017-02-04] MEDS: CEFEPIME INJ 2,000 MG in SODIUM CHLORIDE 0.9% INJ 100 ML IV SCH ×2 (02:57→14:24)
[2017-02-04] MEDS: CHLORHEXIDINE GLUCONATE 2 % 1 PACK (2 CLOTHS)(taper/protocol) TOP SCH (02:57)
[2017-02-04 03:59] LABS: HEMATOCRIT 36.2 % (39.0-51.0); MEAN CELL VOLUME 93.5 FL (80.0-100.0); MEAN CORPUSCULAR HEMOGLOBIN 30.3 PG (27.0-34.0); MEAN CORPUSCULAR HGB CONC 32.4 % (32.0-36.0); PLATELET COUNT 161 TH/MM3 (150-450); RED BLOOD COUNT 3.88 MIL/MM3 (4.50-5.90); REVIEW FLAG FINAL; WHITE BLOOD COUNT 9.2 TH/MM3 (4.0-11.0)
[2017-02-04] MEDS: METOPROLOL TARTRATE 25 MG TAB PO SCH (05:20)
--- NOTE | 2017-02-04 08:05 | PD.CARD.PN ---
Subjective Subjective Remarks Pt c/o generalized weakness Objective Medications Current Medications Medications (Trade) Dose Ordered Sig/Narda Route Start Time Stop Time Status Last Admin (NS 1000 ml Inj) 1,000 ml @ 40 mls/hr Q24H IV 01/31/17 20:27 Hold (Zofran Inj) 4 mg Q6H PRN IVP 01/31/17 20:30 (Milk Of Magnesia Liq) 30 ml Q12H PRN PO 01/31/17 20:30 (Narcan Inj) 0.4 mg UNSCH PRN IV 01/31/17 20:30 Miscellaneous Information Patient in critical care unit? Ass... [id number] XX 01/31/17 22:30 02/01/17 05:53 (Chlorhexidine 2% Cloth) 3 pack DAILY@04 TOP 02/01/17 04:00 02/05/17 04:01 02/04/17 02:57 (Chlorhexidine 2% Cloth) 3 pack UNSCH PRN TOP 01/31/17 22:30 02/05/17 22:29 (Lipitor) 40 mg HS PO 02/01/17 21:00 02/03/17 21:24 (Theragran) 1 tab DAILY PO 02/01/17 09:00 02/03/17 09:34 (Heparin Inj) 5,000 units UNSCH PRN IV 02/01/17 15:00 Heparin Sodium (Porcine) 2500 units 2,500 units UNSCH PRN IV 02/01/17 15:00 (Heparin-D5W Inj) 250 ml @ 0 mls/hr TITRATE IV 02/01/17 09:00 02/03/17 15:36 Hydralazine HCl 10 mg 10 mg Q8H PRN IV PUSH 02/01/17 08:45 02/01/17 09:24 (Maxipime Inj/NS Inj) 100 ml @ 200 mls/hr Q12H IV 02/01/17 15:00 02/04/17 02:57 (Bumex Inj) 2 mg DAILY IV PUSH 02/03/17 09:00 02/03/17 09:34 (Lopressor) 50 mg Q8HR PO 02/03/17 08:00 02/04/17 05:20 Vital Signs / I&O Vital Signs Date Time Temp Pulse Resp B/P Pulse Ox O2 Delivery O2 Flow Rate FiO2 02/04/17 04:00 97.8 104 20 119/78 98 02/04/17 00:43 97.9 95 20 105/69 97 02/03/17 20:56 94 02/03/17 20:00 97.8 76 16 115/56 96 02/03/17 18:00 87 02/03/17 16:00 97.9 88 18 102/83 93 02/03/17 16:00 85 02/03/17 14:00 87 02/03/17 12:00 90 02/03/17 12:00 97.8 74 20 123/77 93 02/03/17 10:00 90 I/O 02/03/17 02/03/17 02/03/17 02/04/17 02/04/17 02/04/17 07:00 15:00 23:00 07:00 15:00 23:00 Intake Total 330 ml 90 ml 247 ml Output Total 400 ml 520 ml Balance -70 ml -430 ml 247 ml Intake Oral 150 ml IV Total 180 ml 90 ml 247 ml Output Urine Total 400 ml 520 ml # Voids 2 Physical Exam GENERAL: Well developed, well nourished. No acute distress. HEENT: Jugular venous pressure is normal. CHEST: Lungs decreased, clear to auscultation bilaterally. Unlabored respiratory effort. CARDIAC: irregular rate and rhythm without S3, S4, or murmur. ABDOMEN: Soft, nontender, no hepatosplenomegaly. Bowel sounds present. EXTREMITIES: No clubbing,1+ edema. Laboratory Laboratory Tests Test 02/03/17 02/04/17 11:34 03:42 Procalcitonin 2.99 ng/mL White Blood Count 9.2 TH/MM3 Red Blood Count 3.88 MIL/MM3 Hemoglobin 11.7 GM/DL Hematocrit 36.2 % Mean Corpuscular Volume 93.5 FL Mean Corpuscular Hemoglobin 30.3 PG Mean Corpuscular Hemoglobin 32.4 % Concent Red Cell Distribution Width 18.0 % Platelet Count 161 TH/MM3 Mean Platelet Volume 9.4 FL Assessment and Plan Assessment and Plan Atrial fibrillation - The patient has new onset atrial fibrillation. - reassonable on metoprolo, optimize -CHADS-VASc score=3, HTN, CHF/EF 25%, possibly for diabetes, on heparin -primary to consider coumadin Cardiomyopathy- EF 25% acute systolic CHF -pt declined nuc or cath...wants as outpatient (but will think about it) -he is aware of high risk for sudden -optimize med therapy 02/04- no change; BP too low for JEAN CHF-continue to optimize, change to PO lasix Weakness- PT, further per primary team Pneumonia - This is being managed by the primary team. Acute renal insufficiency - This is being managed by the primary team. Elevated LFTs - We will use caution with his p.o. medications. Hyponatremia - This is being managed by primary team. Leonora Warner MD Feb 04, 2017 08:05
[2017-02-04] MEDS: METOPROLOL TARTRATE 100 MG TAB PO SCH ×2 (09:00→22:06)
[2017-02-04] MEDS: MULTIVITAMIN TAB PO SCH (09:40)
[2017-02-04] MEDS: POTASSIUM CHLORIDE 20 MEQ CONTROLLED RELEASE TAB PO SCH (09:40)
[2017-02-04] MEDS: FUROSEMIDE 40 MG TAB PO SCH ×2 (09:40→17:36)
[2017-02-04 10:53] LABS: APTT (PATIENT) 57.6 SEC (24.3-30.1)
--- NOTE | 2017-02-04 11:11 | HHI.NPPN ---
Subjective Complaints: Shortness of Breath General Problems: Edema, Hypertension Renal Failure: Acute Interval History He is resting comfortably. Fluid overload persists. Continues on cardizem gtt. (Marsha Degroot) Review of Systems General Constitutional: Fatigue (Marsha Degroot) Respiratory Lungs: SOB, Cough Respiratory Remarks sob improved (Marsha Degroot) Cardiovascular Cardiac: Edema (Marsha Degroot) Objective Data Data 02/03/17 02/04/17 19:00 07:00 Intake Total 90 ml 247 ml Output Total 520 ml Balance -430 ml 247 ml IV Total 90 ml 247 ml Output Urine Total 520 ml Vital Signs Date Time Temp Pulse Resp B/P Pulse Ox O2 Delivery O2 Flow Rate FiO2 02/04/17 10:59 58 02/04/17 08:00 96.7 58 18 95/85 97 02/04/17 04:00 97.8 104 20 119/78 98 02/04/17 00:43 97.9 95 20 105/69 97 02/03/17 20:56 94 02/03/17 20:00 97.8 76 16 115/56 96 02/03/17 18:00 87 02/03/17 16:00 97.9 88 18 102/83 93 02/03/17 16:00 85 02/03/17 14:00 87 02/03/17 12:00 90 02/03/17 12:00 97.8 74 20 123/77 93 (Marsha Degroot) -: 02/04/17 0342 02/03/17 0426 Imaging Last Impressions Thoracentesis Ultrasound 02/02/17 0000 Signed Impressions: Service Date/Time: Thursday, February 02, 2017 11:24 - CONCLUSION: Uncomplicated ultrasound guided thoracentesis. Eliud Garces MD FACR Chest X-Ray 02/02/17 0000 Signed Impressions: Service Date/Time: Thursday, February 02, 2017 12:13 - CONCLUSION: Negative for pneumothorax. Consolidative changes and minimal fluid persists on the right. Eliud Garces MD FACR Cholangiopancreatography MRI 02/01/17 0000 Signed Impressions: Service Date/Time: Wednesday, February 01, 2017 18:17 - CONCLUSION: 1. There is a large gallstone in the gallbladder. 2. No definite biliary tract obstruction. 3. There is a small amount of ascites in the upper abdomen with nonspecific edema in the mesenteric fat. Cem Lee MD Chest Ultrasound 02/01/17 0000 Signed Impressions: Service Date/Time: Wednesday, February 01, 2017 15:28 - CONCLUSION: Right pleural effusion. Christos Euceda MD Chest CT 02/01/17 0000 Signed Impressions: Service Date/Time: Wednesday, February 01, 2017 17:48 - CONCLUSION: 1. Large right-sided pleural effusion with parenchymal consolidation in the right lower lung. 2. Small left effusion. Cem Lee MD Abdomen/Pelvis CT 02/01/17 0000 Signed Impressions: Service Date/Time: Wednesday, February 01, 2017 17:48 - CONCLUSION: 1. Small to moderate amount of ascitic fluid with nonspecific bowel gas pattern. His findings are nonspecific. Infection cannot be excluded. There is no distinct focal abscess on this noncontrast study performed without oral contrast. 2. Densely calcified gallstone. 3. Moderate size right pleural effusion consolidation and possible rounded atelectasis in the right lower lobe. There is a smaller left effusion. Jacob Graham MD Abdomen X-Ray 01/31/17 1807 Signed Impressions: Service Date/Time: Tuesday, January 31, 2017 18:27 - CONCLUSION: 1. Nonspecific bowel gas pattern. 2. Calcification right upper quadrant most likely representing a gallstone. Cem Lee MD Gall Bladder Ultrasound 01/31/17 0000 Signed Impressions: Service Date/Time: Tuesday, January 31, 2017 20:24 - CONCLUSION: 1. Cholelithiasis with mild gallbladder wall thickening. 2. Moderate to large right effusion. 3. Ascitic fluid in the right lower quadrant. Jacob Graham MD Drip Comment heparin (Marsha Degroot) Physical Exam General Appearance: Well Developed, Well Nourished, No Acute Distress, Comfortable ( Marsha DegrootP) Throat Throat Exam: Oral Mucosa Keller & Moist (Marsha DegrootP) Pulmonary Resp Exam: Breath Sounds Equal, No Distress Resp Remarks dull on right base (Marsha Degroot WEATHER ANALYST) Cardiology CV Exam: Good Perfusion, Irregular (Marsha Degroot) Gastrointestinal/Abdomen GI Exam: Soft, Non-Tender, Bowel Sounds Present (Marsha Degroot) Musculoskeletal MS Exam: Joints Intact, Normal Tone (Marsha Degroot) Integumentary Skin Exam: Warm, Dry, Intact (Marsha Degroot) Extremeties Extremities Exam: Pedal Pulses Palpable, Moderate Edema, Pitting Edema ( Marsha Degroot) Neurologic Neuro Exam: Alert, Awake, Oriented, Speech Clear, Moving All Extremities ( Marsha Degroot) Psychiatric Psych Exam: Appropriate Responses (Marsha Degroot) VTE Prophylaxis Meds: Heparin (Marsha Degroot) Assessment/Plan Discussed Condition With: Patient Assessment Summary: VERONICA/Acute Renal Failure, Hypertension, Diabetes Mellitus Problem List: (1) Acute kidney failure Plan: Baseline renal function is not known. Likely has underlying CKD, has cardiorenal syndrome. his creatinine has been increasing, today's labs in process electrolytes unremarkable Volume overload persists, continue diuresis monitor urine output Avoid nephrotoxic agents. BP borderline low, JEAN not started serologies and SPEP are negative (2) Hyponatremia Plan: hypervolemic hyponatremia bumex changed to lasix continue with fluid restriction. (3) Atrial flutter with rapid ventricular response Plan: new onset, cardiology following rate contolled with oral Cardizem and metoprolol Chads Vasc score 3, on heparin gtt (4) Abnormal gallbladder ultrasound Plan: MRCP reviewed, he does have large gallstone GI and surgery consulted, no plans for surgery at this time he also has ascites on imaging await further recommendations (5) Pneumonia Plan: ID consulted, pulmonary following He is now on Cefepime. (6) Pleural effusion Plan: s/p thoracentesis with 1L fluid removal pulmonary status improved Pulmonary following. (7) Thrombocytopenia Plan: Resolved. LDH is not high. (Marsha Degroot) Plan patient was seen and examined. Renal function is worse with diuresis. Continue Lasix and fluid restriction. (Noe Kapoor MD) Problem Qualifiers (1) Pneumonia: Qualified Code: J18.1 - Pneumonia of right lower lobe due to infectious organism Marsha Degroot Feb 04, 2017 11:11 Noe Kapoor MD Feb 04, 2017 17:25
[2017-02-04 11:13] LABS: BICARBONATE 23.3 MEQ/L (21.0-32.0)
--- NOTE | 2017-02-04 12:38 | HHI.PR ---
Subjective Remarks Follow-up atrial flutter with RVR/right pleural effusion status post thoracentesis/anasarca/community-acquired pneumonia 02/03/17-patient seen and examined, status post right sided pleurocentesis and patient currently denies any chest pain or shortness of breath. 02/04/17-patient seen and examined, resting quietly and no acute event overnight. Objective Vitals Vital Signs Date Time Temp Pulse Resp B/P Pulse Ox O2 Delivery O2 Flow Rate FiO2 02/04/17 10:59 58 02/04/17 08:00 96.7 58 18 95/85 97 02/04/17 04:00 97.8 104 20 119/78 98 02/04/17 00:43 97.9 95 20 105/69 97 02/03/17 20:56 94 02/03/17 20:00 97.8 76 16 115/56 96 02/03/17 18:00 87 02/03/17 16:00 97.9 88 18 102/83 93 02/03/17 16:00 85 02/03/17 14:00 87 I/O 02/03/17 02/03/17 02/03/17 02/04/17 02/04/17 02/04/17 07:00 15:00 23:00 07:00 15:00 23:00 Intake Total 330 ml 90 ml 247 ml Output Total 400 ml 520 ml Balance -70 ml -430 ml 247 ml Intake Oral 150 ml IV Total 180 ml 90 ml 247 ml Output Urine Total 400 ml 520 ml # Voids 2 Result Diagram: 02/04/17 0342 02/04/17 0957 Objective Remarks GENERAL: NAD SKIN: Warm and dry. HEAD: Normocephalic. EYES: No scleral icterus. No injection or drainage. NECK: Supple, trachea midline. No JVD or lymphadenopathy. CARDIOVASCULAR: Irregular Regular rate and rhythm without murmurs, gallops, or rubs. RESPIRATORY: Breath sounds equal bilaterally. No accessory muscle use. GASTROINTESTINAL: Abdomen soft, non-tender, nondistended. MUSCULOSKELETAL: No cyanosis, positive for anasarca BACK: Nontender without obvious deformity. No CVA tenderness. Procedures none A/P Problem List: (1) Pneumonia ICD Code: J18.9 Status: Acute (2) Atrial flutter with rapid ventricular response ICD Code: I48.92 Status: Acute (3) Abdominal pain ICD Code: R10.9 Status: Acute (4) Acute kidney failure ICD Code: N17.9 Status: Acute (5) Elevated LFTs ICD Code: R94.5 Status: Acute (6) Edema ICD Code: R60.9 Status: Acute (7) Hyponatremia ICD Code: E87.1 Status: Acute (8) Lactic acidosis ICD Code: E87.2 Status: Acute (9) Pleural effusion ICD Code: J90 Status: Acute Assessment and Plan 66-year-old man with Pneumonia with right pleural effusion -continue IV antibiotic including cefepime -s/p thoracentesis 02/02/17 pending report -ID and pulmonary ff Cardiomyopathy echo with EF 20-25% and diffuse hypokinesis, however patient declined nuclear or left heart catheterization continue diuretic including Bumex 2 mg IV daily cardiology following. Cholelithiasis - surgery evaluation appreciated; no plan for surgery at this time -Hepatitis profile negative elevated LFT's- likely due to liver congestion due to CHF MRCP with a large gallstone in the gallbladder. No definite biliary tract obstruction. and a small amount of ascites in the upper abdomen with nonspecific edema in the mesenteric fat. - hepatitis panel negative -GI following. Atrial fibrillation with RVR -on metoprolol -on Heparin drip , will decide on oral anticoagulation -Cardiology following renal insufficiency with unknown duration -Appreciate input from nephrology -SPEP pending -Trend CMP -Avoid nephrotoxic drugs Hyponatremia likely due to fluid overload- continue diuretics and will monitor the level DVT prophylaxis: Heparin Problem Qualifiers (1) Pneumonia: Qualified Code: J18.1 - Pneumonia of right lower lobe due to infectious organism Naif Orozco MD Feb 04, 2017 12:38
[2017-02-04 15:53] LABS: MITOCHONDRIAL ABS LESS THAN 20.0 U (())
[2017-02-04] MEDS: HEPARIN-D5W INJ 250 ML IV SCH (18:39)
[2017-02-04] MEDS ORDERED: DILTIAZEM 125 MG/NS 100 ML IV SCH ×2 (20:00)
--- NOTE | 2017-02-04 20:25 | HHI.PR ---
Subjective Remarks 66 YOWM with COPD,Pl eff,DM Had Thoracentesis Feels much better Denies Palpitation or CP pl fluid cultures negative Anxious to go home Objective Vital Signs Vital Signs Date Time Temp Pulse Resp B/P Pulse Ox O2 Delivery O2 Flow Rate FiO2 02/04/17 16:00 97.5 118 18 134/87 97 02/04/17 12:00 97.6 118 18 130/101 94 02/04/17 10:59 58 02/04/17 08:00 96.7 58 18 95/85 97 02/04/17 04:00 97.8 104 20 119/78 98 02/04/17 00:43 97.9 95 20 105/69 97 02/03/17 20:56 94 I/O 02/03/17 02/03/17 02/03/17 02/04/17 02/04/17 02/04/17 07:00 15:00 23:00 07:00 15:00 23:00 Intake Total 330 ml 90 ml 247 ml 726 ml Output Total 400 ml 520 ml 500 ml Balance -70 ml -430 ml 247 ml 226 ml Intake Oral 150 ml 650 ml IV Total 180 ml 90 ml 247 ml 76 ml Output Urine Total 400 ml 520 ml 500 ml # Voids 2 Result Diagram: 02/04/17 0342 02/04/17 0957 Objective Remarks GENERAL: MBMN WM NAD SKIN: Warm and dry. HEAD: Normocephalic. EYES: No scleral icterus. No injection or drainage. NECK: Supple, trachea midline. No JVD or lymphadenopathy. CARDIOVASCULAR: Regular rate and rhythm without murmurs, gallops, or rubs. RESPIRATORY: Breath sounds equal bilaterally. No accessory muscle use. GASTROINTESTINAL: Abdomen soft, non-tender, nondistended. MUSCULOSKELETAL: No cyanosis, or edema. BACK: Nontender without obvious deformity. No CVA tenderness. A/P Assessment and Plan Pleural effusion, s/p TC AF COPDDM PLAN: Aerosol nebs Cont Abx Wean 02 HR controll Cytology pending Kirt Duncan MD Feb 04, 2017 20:25
[2017-02-04] MEDS: ATORVASTATIN 40 MG TAB PO SCH (22:06)
[2017-02-05] VITALS (7 sets, daily range): BP systolic 104–131; BP diastolic 58–76; PULSE 73–126; RESP 18–20; TEMP 97.3–98.2; O2SAT 95–100
[2017-02-05] MEDS: CHLORHEXIDINE GLUCONATE 2 % 1 PACK (2 CLOTHS)(taper/protocol) TOP SCH (01:19)
[2017-02-05] MEDS: CEFEPIME INJ 2,000 MG in SODIUM CHLORIDE 0.9% INJ 100 ML IV SCH ×2 (02:38→15:07)
[2017-02-05 07:11] LABS: APTT (PATIENT) 53.8 SEC (24.3-30.1)
--- NOTE | 2017-02-05 08:48 | PD.CARD.PN ---
Subjective Subjective Remarks Chart reviewed. Patient denies chest pain, shortness of breath, GI symptoms or bleeding. He was moved because of rapid atrial flutter and started on an intravenous Cardizem drip. Telemetry reveals controlled atrial flutter. He is also on intravenous heparin. Objective Medications Reviewed Vital Signs / I&O Vital Signs Date Time Temp Pulse Resp B/P Pulse Ox O2 Delivery O2 Flow Rate FiO2 02/05/17 04:00 97.7 96 20 104/76 98 02/05/17 00:10 98.2 126 20 110/70 98 02/04/17 22:36 113 02/04/17 20:54 130 02/04/17 20:10 98.1 131 20 130/84 99 02/04/17 16:00 97.5 118 18 134/87 97 02/04/17 12:00 97.6 118 18 130/101 94 02/04/17 10:59 58 I/O 02/04/17 02/04/17 02/04/17 02/05/17 02/05/17 02/05/17 07:00 15:00 23:00 07:00 15:00 23:00 Intake Total 247 ml 726 ml 438 ml 232 ml Output Total 500 ml 200 ml 175 ml Balance 247 ml 226 ml 238 ml 57 ml Intake Oral 650 ml 280 ml 120 ml IV Total 247 ml 76 ml 158 ml 112 ml Output Urine Total 500 ml 200 ml 175 ml # Bowel Movements 0 0 Physical Exam GENERAL: Well-nourished, well-developed patient in no apparent distress. SKIN: Warm and dry. NECK: JVD normal - less than or equal to 5 cm H20. CARDIOVASCULAR: Irregular rate and rhythm without murmurs, gallops, or rubs. RESPIRATORY: Normal breath sounds - equal bilaterally. No accessory muscle use. No wheezes, rales or rubs. PERIPHERY: No cyanosis. 1-2+ edema. Laboratory Laboratory Tests Test 02/04/17 02/05/17 09:57 06:49 Activated Partial 57.6 SEC 53.8 SEC Thromboplast Time Sodium Level 127 MEQ/L Potassium Level 5.0 MEQ/L Chloride Level 92 MEQ/L Carbon Dioxide Level 23.3 MEQ/L Anion Gap 12 MEQ/L Blood Urea Nitrogen 74 MG/DL Creatinine 2.62 MG/DL Estimat Glomerular Filtration 25 ML/MIN Rate Random Glucose 113 MG/DL Calcium Level 8.0 MG/DL Phosphorus Level 3.6 MG/DL Albumin 2.3 GM/DL Imaging Reviewed Assessment and Plan Assessment and Plan Problems: Cardiomyopathy with severe left ventricular dysfunctionpatient has refused inpatient workup. Systolic congestive heart failure Atrial flutter with rapid response Elevated liver functions Hypertension Diabetes Hyperlipidemia Acute renal insufficiency Recommendations: Continue oral beta blockers and switch to oral diltiazem. Diuresis Continue heparin. I would hold off on warfarin for full anticoagulation otherwise at this point in time. We will follow. Ko Hare MD Feb 05, 2017 08:48
[2017-02-05] MEDS: DILTIAZEM-CD 180 MG CAP ER PO SCH (09:00)
[2017-02-05] MEDS: METOPROLOL TARTRATE 100 MG TAB PO SCH ×2 (09:01→21:03)
[2017-02-05] MEDS: POTASSIUM CHLORIDE 20 MEQ CONTROLLED RELEASE TAB PO SCH (09:01)
[2017-02-05] MEDS: FUROSEMIDE 40 MG TAB PO SCH ×2 (09:01→17:23)
[2017-02-05] MEDS: MULTIVITAMIN TAB PO SCH (09:01)
--- NOTE | 2017-02-05 10:07 | HHI.PR ---
Subjective Remarks Follow-up atrial flutter with RVR/right pleural effusion status post thoracentesis/anasarca/community-acquired pneumonia 02/03/17-patient seen and examined, status post right sided pleurocentesis and patient currently denies any chest pain or shortness of breath. 02/04/17-patient seen and examined, resting quietly and no acute event overnight. 02/05/17-patient seen and examined, currently rate control. Patient was transfer yesterday secondary to flutter with RVR for which he was started on Cardizem drip and transferred to [facility] Objective Vitals Vital Signs Date Time Temp Pulse Resp B/P Pulse Ox O2 Delivery O2 Flow Rate FiO2 02/05/17 04:00 97.7 96 20 104/76 98 02/05/17 00:10 98.2 126 20 110/70 98 02/04/17 22:36 113 02/04/17 20:54 130 02/04/17 20:10 98.1 131 20 130/84 99 02/04/17 16:00 97.5 118 18 134/87 97 02/04/17 12:00 97.6 118 18 130/101 94 02/04/17 10:59 58 I/O 02/04/17 02/04/17 02/04/17 02/05/17 02/05/17 02/05/17 07:00 15:00 23:00 07:00 15:00 23:00 Intake Total 247 ml 726 ml 438 ml 232 ml Output Total 500 ml 200 ml 175 ml Balance 247 ml 226 ml 238 ml 57 ml Intake Oral 650 ml 280 ml 120 ml IV Total 247 ml 76 ml 158 ml 112 ml Output Urine Total 500 ml 200 ml 175 ml # Bowel Movements 0 0 Result Diagram: 02/04/17 0342 02/04/17 0957 Imaging Last Impressions Thoracentesis Ultrasound 02/02/17 0000 Signed Impressions: Service Date/Time: Thursday, February 02, 2017 11:24 - CONCLUSION: Uncomplicated ultrasound guided thoracentesis. Eliud Garces MD FACR Chest X-Ray 02/02/17 0000 Signed Impressions: Service Date/Time: Thursday, February 02, 2017 12:13 - CONCLUSION: Negative for pneumothorax. Consolidative changes and minimal fluid persists on the right. Eliud Garces MD FACR Cholangiopancreatography MRI 3/14/17 0000 Signed Impressions: Service Date/Time: Wednesday, February 01, 2017 18:17 - CONCLUSION: 1. There is a large gallstone in the gallbladder. 2. No definite biliary tract obstruction. 3. There is a small amount of ascites in the upper abdomen with nonspecific edema in the mesenteric fat. Cem Lee MD Chest Ultrasound 02/01/17 0000 Signed Impressions: Service Date/Time: Wednesday, February 01, 2017 15:28 - CONCLUSION: Right pleural effusion. Christos Euceda MD Chest CT 02/01/17 0000 Signed Impressions: Service Date/Time: Wednesday, February 01, 2017 17:48 - CONCLUSION: 1. Large right-sided pleural effusion with parenchymal consolidation in the right lower lung. 2. Small left effusion. Cem Lee MD Abdomen/Pelvis CT 02/01/17 0000 Signed Impressions: Service Date/Time: Wednesday, February 01, 2017 17:48 - CONCLUSION: 1. Small to moderate amount of ascitic fluid with nonspecific bowel gas pattern. His findings are nonspecific. Infection cannot be excluded. There is no distinct focal abscess on this noncontrast study performed without oral contrast. 2. Densely calcified gallstone. 3. Moderate size right pleural effusion consolidation and possible rounded atelectasis in the right lower lobe. There is a smaller left effusion. Jacob Graham MD Abdomen X-Ray 01/31/17 1807 Signed Impressions: Service Date/Time: Tuesday, January 31, 2017 18:27 - CONCLUSION: 1. Nonspecific bowel gas pattern. 2. Calcification right upper quadrant most likely representing a gallstone. Cem Lee MD Gall Bladder Ultrasound 01/31/17 0000 Signed Impressions: Service Date/Time: Tuesday, January 31, 2017 20:24 - CONCLUSION: 1. Cholelithiasis with mild gallbladder wall thickening. 2. Moderate to large right effusion. 3. Ascitic fluid in the right lower quadrant. Jacob Graham MD Objective Remarks GENERAL: NAD SKIN: Warm and dry. HEAD: Normocephalic. EYES: No scleral icterus. No injection or drainage. NECK: Supple, trachea midline. No JVD or lymphadenopathy. CARDIOVASCULAR: Irregular Regular rate and rhythm without murmurs, gallops, or rubs. RESPIRATORY: Breath sounds equal bilaterally. No accessory muscle use. GASTROINTESTINAL: Abdomen soft, non-tender, nondistended. MUSCULOSKELETAL: No cyanosis, positive for anasarca BACK: Nontender without obvious deformity. No CVA tenderness. Procedures none A/P Problem List: (1) Pneumonia ICD Code: J18.9 Status: Acute (2) Atrial flutter with rapid ventricular response ICD Code: I48.92 Status: Acute (3) Abdominal pain ICD Code: R10.9 Status: Acute (4) Acute kidney failure ICD Code: N17.9 Status: Acute (5) Elevated LFTs ICD Code: R94.5 Status: Acute (6) Edema ICD Code: R60.9 Status: Acute (7) Hyponatremia ICD Code: E87.1 Status: Acute (8) Lactic acidosis ICD Code: E87.2 Status: Acute (9) Pleural effusion ICD Code: J90 Status: Acute Assessment and Plan 66-year-old man with Pneumonia with right pleural effusion -continue IV antibiotic including cefepime -s/p thoracentesis 02/02/17 pending report -ID and pulmonary ff Cardiomyopathy echo with EF 20-25% and diffuse hypokinesis, however patient declined nuclear or left heart catheterization continue diuretic including Bumex 2 mg IV daily cardiology following. Cholelithiasis - surgery evaluation appreciated; no plan for surgery at this time -Hepatitis profile negative elevated LFT's- likely due to liver congestion due to CHF MRCP with a large gallstone in the gallbladder. No definite biliary tract obstruction. and a small amount of ascites in the upper abdomen with nonspecific edema in the mesenteric fat. - hepatitis panel negative -GI following. Atrial/flutter fibrillation with RVR -On 02/04/17, I started on Cardizem drip and now will switch to by mouth Cardizem CD 180 mg daily today 02/05/17 -on metoprolol -on Heparin drip -Cardiology following renal insufficiency with unknown duration -Appreciate input from nephrology -SPEP pending -Trend CMP -Avoid nephrotoxic drugs Hyponatremia likely due to fluid overload- continue diuretics and will monitor the level DVT prophylaxis: Heparin Problem Qualifiers (1) Pneumonia: Qualified Code: J18.1 - Pneumonia of right lower lobe due to infectious organism Naif Orozco MD Feb 05, 2017 10:07
--- NOTE | 2017-02-05 12:40 | HHI.NPPN ---
Subjective Complaints: Shortness of Breath General Problems: Edema, Hypertension Renal Failure: Acute Additional Remarks Patient is alert, no SOB, still complain of swelling in legs. Review of Systems General Constitutional: Fatigue Respiratory Lungs: SOB, Cough Respiratory Remarks sob improved Cardiovascular Cardiac: Edema Objective Data Data 02/04/17 02/05/17 19:00 07:00 Intake Total 726 ml 670 ml Output Total 500 ml 375 ml Balance 226 ml 295 ml Intake Oral 650 ml 400 ml IV Total 76 ml 270 ml Output Urine Total 500 ml 375 ml # Bowel Movements 0 Vital Signs Date Time Temp Pulse Resp B/P Pulse Ox O2 Delivery O2 Flow Rate FiO2 02/05/17 08:40 80 02/05/17 08:00 97.5 82 18 131/73 95 02/05/17 04:00 97.7 96 20 104/76 98 02/05/17 00:10 98.2 126 20 110/70 98 02/04/17 22:36 113 02/04/17 20:54 130 02/04/17 20:10 98.1 131 20 130/84 99 02/04/17 16:00 97.5 118 18 134/87 97 -: 02/04/17 0342 02/04/17 0957 Drip Comment heparin Physical Exam General Appearance: Well Developed, Well Nourished, No Acute Distress, Comfortable Throat Throat Exam: Oral Mucosa [place] & Moist Pulmonary Resp Exam: Breath Sounds Equal, No Distress Cardiology CV Exam: Irregular Gastrointestinal/Abdomen GI Exam: Soft, Non-Tender, Bowel Sounds Present Musculoskeletal MS Exam: Joints Intact, Normal Tone Integumentary Skin Exam: Warm, Dry, Intact Extremeties Extremities Exam: Moderate Edema, Pitting Edema, Dependent Edema Neurologic Neuro Exam: Alert, Awake, Oriented, Speech Clear Psychiatric Psych Exam: Appropriate Responses Assessment/Plan Discussed Condition With: Patient Assessment Summary: VERONICA/Acute Renal Failure, Hypertension, Diabetes Mellitus Problem List: (1) Acute kidney failure Plan: Baseline renal function is not known. Likely has underlying CKD, has cardiorenal syndrome. his creatinine has been increasing, electrolytes unremarkable Volume overload persists, continue diuresis monitor urine output Avoid nephrotoxic agents. BP borderline low, JEAN not started serologies and SPEP are negative K is 5.0, D/C Kcl, continue Lasix. (2) Hyponatremia Plan: hypervolemic hyponatremia bumex changed to lasix continue with fluid restriction. (3) Atrial flutter with rapid ventricular response Plan: new onset, cardiology following rate contolled with oral Cardizem and metoprolol Chads Vasc score 3, on heparin gtt (4) Abnormal gallbladder ultrasound Plan: MRCP reviewed, he does have large gallstone GI and surgery consulted, no plans for surgery at this time he also has ascites on imaging await further recommendations (5) Pneumonia Plan: ID consulted, pulmonary following He is now on Cefepime. (6) Pleural effusion Plan: s/p thoracentesis with 1L fluid removal pulmonary status improved Pulmonary following. (7) Thrombocytopenia Plan: Resolved. LDH is not high. Plan patient was seen and examined. Renal function is worse with diuresis. Continue Lasix and fluid restriction. Problem Qualifiers (1) Pneumonia: Qualified Code: J18.1 - Pneumonia of right lower lobe due to infectious organism Saulo Lara MD Feb 05, 2017 12:40
--- NOTE | 2017-02-05 15:53 | HHI.PR ---
Subjective Remarks 66 YOWM with COPD,Pl eff,DM Had Thoracentesis Feels much better Denies Palpitation or CP pl fluid cultures negative Weaned to RA Objective Vital Signs Vital Signs Date Time Temp Pulse Resp B/P Pulse Ox O2 Delivery O2 Flow Rate FiO2 02/05/17 12:00 98.1 73 18 110/69 96 02/05/17 08:40 80 02/05/17 08:00 97.5 82 18 131/73 95 02/05/17 04:00 97.7 96 20 104/76 98 02/05/17 00:10 98.2 126 20 110/70 98 02/04/17 22:36 113 02/04/17 20:54 130 02/04/17 20:10 98.1 131 20 130/84 99 02/04/17 16:00 97.5 118 18 134/87 97 I/O 02/04/17 02/04/17 02/04/17 02/05/17 02/05/17 02/05/17 07:00 15:00 23:00 07:00 15:00 23:00 Intake Total 247 ml 726 ml 438 ml 232 ml Output Total 500 ml 200 ml 175 ml Balance 247 ml 226 ml 238 ml 57 ml Intake Oral 650 ml 280 ml 120 ml IV Total 247 ml 76 ml 158 ml 112 ml Output Urine Total 500 ml 200 ml 175 ml # Bowel Movements 0 0 Result Diagram: 02/04/17 0342 02/04/17 0957 Objective Remarks GENERAL: MBMN WM NAD SKIN: Warm and dry. HEAD: Normocephalic. EYES: No scleral icterus. No injection or drainage. NECK: Supple, trachea midline. No JVD or lymphadenopathy. CARDIOVASCULAR: Regular rate and rhythm without murmurs, gallops, or rubs. RESPIRATORY: Breath sounds equal bilaterally. No accessory muscle use. GASTROINTESTINAL: Abdomen soft, non-tender, nondistended. MUSCULOSKELETAL: No cyanosis, or edema. BACK: Nontender without obvious deformity. No CVA tenderness. A/P Assessment and Plan Pleural effusion, s/p TC AF COPDDM PLAN: Aerosol nebs Cont Abx Wean 02 HR controll Stable on RA Kirt Duncan MD Feb 05, 2017 15:53
[2017-02-05] MEDS: ATORVASTATIN 40 MG TAB PO SCH (21:03)
[2017-02-05] MEDS: HEPARIN-D5W INJ 250 ML IV SCH (21:04)
[2017-02-06] VITALS (7 sets, daily range): BP systolic 100–138; BP diastolic 66–86; PULSE 73–88; RESP 18; TEMP 97–97.5; O2SAT 97–100
[2017-02-06] MEDS: CEFEPIME INJ 2,000 MG in SODIUM CHLORIDE 0.9% INJ 100 ML IV SCH ×2 (01:53→16:01)
--- NOTE | 2017-02-06 08:08 | HHI.PR ---
Subjective Remarks Follow-up atrial flutter with RVR/right pleural effusion status post thoracentesis/anasarca/community-acquired pneumonia 02/03/17-patient seen and examined, status post right sided pleurocentesis and patient currently denies any chest pain or shortness of breath. 02/04/17-patient seen and examined, resting quietly and no acute event overnight. 02/05/17-patient seen and examined, currently rate control. Patient was transfer yesterday secondary to flutter with RVR for which he was started on Cardizem drip and transferred to [facility] 02/06/17-patient seen and examined. Breathing better and denies any chest pain or heart palpitation. However only complaint is insomnia at night Objective Vitals Vital Signs Date Time Temp Pulse Resp B/P Pulse Ox O2 Delivery O2 Flow Rate FiO2 02/06/17 04:00 97.5 83 18 105/82 97 02/06/17 02:22 77 02/06/17 00:00 97.5 76 18 100/66 99 02/05/17 20:00 98.2 87 18 124/66 100 02/05/17 16:00 97.3 77 18 104/58 97 02/05/17 12:00 98.1 73 18 110/69 96 02/05/17 08:40 80 I/O 02/05/17 02/05/17 02/05/17 02/06/17 02/06/17 02/06/17 07:00 15:00 23:00 07:00 15:00 23:00 Intake Total 232 ml 550 ml 480 ml 720 ml Output Total 175 ml 350 ml 300 ml 300 ml Balance 57 ml 200 ml 180 ml 420 ml Intake Oral 120 ml 550 ml 480 ml 240 ml IV Total 112 ml 480 ml Output Urine Total 175 ml 350 ml 300 ml 300 ml # Voids 1 # Bowel Movements 0 0 0 0 Result Diagram: 02/04/17 0342 02/04/17 0957 Objective Remarks GENERAL: NAD and sitting by the side of the bed SKIN: Warm and dry. HEAD: Normocephalic. EYES: No scleral icterus. No injection or drainage. NECK: Supple, trachea midline. No JVD or lymphadenopathy. CARDIOVASCULAR: Irregular Regular rate and rhythm without murmurs, gallops, or rubs. RESPIRATORY: Breath sounds equal bilaterally. No accessory muscle use. GASTROINTESTINAL: Abdomen soft, non-tender, nondistended. MUSCULOSKELETAL: No cyanosis, positive for anasarca BACK: Nontender without obvious deformity. No CVA tenderness. Procedures none A/P Problem List: (1) Pneumonia ICD Code: J18.9 Status: Acute (2) Atrial flutter with rapid ventricular response ICD Code: I48.92 Status: Acute (3) Abdominal pain ICD Code: R10.9 Status: Acute (4) Acute kidney failure ICD Code: N17.9 Status: Acute (5) Elevated LFTs ICD Code: R94.5 Status: Acute (6) Edema ICD Code: R60.9 Status: Acute (7) Hyponatremia ICD Code: E87.1 Status: Acute (8) Lactic acidosis ICD Code: E87.2 Status: Acute (9) Pleural effusion ICD Code: J90 Status: Acute Assessment and Plan 66-year-old man with Pneumonia with right pleural effusion -continue IV antibiotic including cefepime -s/p thoracentesis 02/02/17 culture negative -ID and pulmonary ff Cardiomyopathy echo with EF 20-25% and diffuse hypokinesis, however patient declined nuclear or left heart catheterization continue diuretic including Bumex 2 mg IV daily cardiology following. Cholelithiasis - surgery evaluation appreciated; no plan for surgery at this time -Hepatitis profile negative elevated LFT's- likely due to liver congestion due to CHF MRCP with a large gallstone in the gallbladder. No definite biliary tract obstruction. and a small amount of ascites in the upper abdomen with nonspecific edema in the mesenteric fat. - hepatitis panel negative -GI following. Atrial/flutter fibrillation with RVR -On 02/04/17, I started on Cardizem drip and now on by mouth Cardizem CD 180 mg daily -on metoprolol -on Heparin drip -Cardiology following renal insufficiency with unknown duration -Appreciate input from nephrology -SPEP pending -Trend CMP -Avoid nephrotoxic drugs Hyponatremia likely due to fluid overload- continue diuretics and will monitor the level Insomnia: Restoril when necessary DVT prophylaxis: Heparin Problem Qualifiers (1) Pneumonia: Qualified Code: J18.1 - Pneumonia of right lower lobe due to infectious organism Naif Orozco MD Feb 06, 2017 08:08
[2017-02-06] MEDS ORDERED: TEMAZEPAM 15 MG CAP PO PRN (08:15)
[2017-02-06] MEDS: DILTIAZEM-CD 180 MG CAP ER PO SCH (08:40)
[2017-02-06] MEDS: METOPROLOL TARTRATE 100 MG TAB PO SCH ×2 (08:40→20:07)
[2017-02-06] MEDS: FUROSEMIDE 40 MG TAB PO SCH ×2 (08:40→16:44)
[2017-02-06] MEDS: MULTIVITAMIN TAB PO SCH (08:40)
--- NOTE | 2017-02-06 10:58 | PD.CARD.PN ---
Subjective Subjective Remarks The patient denies chest pain, shortness of breath, palpitations, GI symptoms or bleeding. Telemetry reveals controlled atrial flutter. Objective Medications Reviewed Vital Signs / I&O Vital Signs Date Time Temp Pulse Resp B/P Pulse Ox O2 Delivery O2 Flow Rate FiO2 02/06/17 08:00 97.0 88 18 138/86 100 02/06/17 04:00 97.5 83 18 105/82 97 02/06/17 02:22 77 02/06/17 00:00 97.5 76 18 100/66 99 02/05/17 20:00 98.2 87 18 124/66 100 02/05/17 16:00 97.3 77 18 104/58 97 02/05/17 12:00 98.1 73 18 110/69 96 I/O 02/05/17 02/05/17 02/05/17 02/06/17 02/06/17 02/06/17 07:00 15:00 23:00 07:00 15:00 23:00 Intake Total 232 ml 550 ml 480 ml 720 ml Output Total 175 ml 350 ml 300 ml 300 ml Balance 57 ml 200 ml 180 ml 420 ml Intake Oral 120 ml 550 ml 480 ml 240 ml IV Total 112 ml 480 ml Output Urine Total 175 ml 350 ml 300 ml 300 ml # Voids 1 # Bowel Movements 0 0 0 0 Physical Exam GENERAL: Well-nourished, well-developed patient in no apparent distress. SKIN: Warm and dry. NECK: JVD normal - less than or equal to 5 cm H20. CARDIOVASCULAR: Irregular rate and rhythm without murmurs, gallops, or rubs. RESPIRATORY: Normal breath sounds - equal bilaterally. No accessory muscle use. No wheezes, rales or rubs. PERIPHERY: No cyanosis. 1+ edema. Assessment and Plan Assessment and Plan Problems: Cardiomyopathy with severe left ventricular dysfunctionpatient has refused inpatient workup. Systolic congestive heart failure Atrial flutter with rapid response Elevated liver functions Hypertension Diabetes Hyperlipidemia Acute renal insufficiency Recommendations: Continue oral beta blockers and diltiazem. Diuresis-will add low-dose metolazone. Follow-up lab work Continue heparin. I would hold off on warfarin for full anticoagulation otherwise at this point in time. We will follow. Dr. Warner will return tomorrow. Ko Hare MD Feb 06, 2017 10:57
[2017-02-06] MEDS: METOLAZONE 2.5 MG TAB PO SCH (11:34)
--- NOTE | 2017-02-06 12:41 | HHI.NPPN ---
Subjective Complaints: Shortness of Breath General Problems: Edema, Hypertension Renal Failure: Acute Additional Remarks Patient is alert, no SOB, not eating well, swelling in legs slightly better. Review of Systems General Constitutional: Fatigue Respiratory Lungs: SOB, Cough Respiratory Remarks sob improved Cardiovascular Cardiac: Edema Objective Data Data 02/05/17 02/06/17 19:00 07:00 Intake Total 550 ml 1200 ml Output Total 350 ml 600 ml Balance 200 ml 600 ml Intake Oral 550 ml 720 ml IV Total 480 ml Output Urine Total 350 ml 600 ml # Voids 1 # Bowel Movements 0 0 Vital Signs Date Time Temp Pulse Resp B/P Pulse Ox O2 Delivery O2 Flow Rate FiO2 02/06/17 12:00 97.3 74 18 109/74 99 02/06/17 08:00 97.0 88 18 138/86 100 02/06/17 04:00 97.5 83 18 105/82 97 02/06/17 02:22 77 02/06/17 00:00 97.5 76 18 100/66 99 02/05/17 20:00 98.2 87 18 124/66 100 02/05/17 16:00 97.3 77 18 104/58 97 -: 02/04/17 0342 02/04/17 0957 Drip Comment heparin Physical Exam General Appearance: Well Developed, Well Nourished, No Acute Distress, Comfortable Throat Throat Exam: Oral Mucosa [place] & Moist Pulmonary Resp Exam: Breath Sounds Equal, No Distress Cardiology CV Exam: Irregular Gastrointestinal/Abdomen GI Exam: Soft, Non-Tender, Bowel Sounds Present Musculoskeletal MS Exam: Joints Intact, Normal Tone Integumentary Skin Exam: Warm, Dry, Intact Extremeties Extremities Exam: Moderate Edema, Pitting Edema, Dependent Edema Neurologic Neuro Exam: Alert, Awake, Oriented, Speech Clear Psychiatric Psych Exam: Appropriate Responses Assessment/Plan Discussed Condition With: Patient Assessment Summary: VERONICA/Acute Renal Failure, Hypertension, Diabetes Mellitus Problem List: (1) Acute kidney failure Plan: Baseline renal function is not known. Likely has underlying CKD, has cardiorenal syndrome. his creatinine has been increasing, electrolytes unremarkable Volume overload persists, continue diuresis monitor urine output Avoid nephrotoxic agents. BP borderline low, JEAN not started serologies and SPEP are negative On Lasix and Metolazone, follow BMP. (2) Hyponatremia Plan: hypervolemic hyponatremia bumex changed to lasix continue with fluid restriction. (3) Atrial flutter with rapid ventricular response Plan: new onset, cardiology following rate contolled with oral Cardizem and metoprolol Chads Vasc score 3, on heparin gtt (4) Abnormal gallbladder ultrasound Plan: MRCP reviewed, he does have large gallstone GI and surgery consulted, no plans for surgery at this time he also has ascites on imaging await further recommendations (5) Pneumonia Plan: ID consulted, pulmonary following He is now on Cefepime. (6) Pleural effusion Plan: s/p thoracentesis with 1L fluid removal pulmonary status improved Pulmonary following. (7) Thrombocytopenia Plan: Resolved. LDH is not high. Plan patient was seen and examined. Renal function is worse with diuresis. Continue Lasix and fluid restriction. Problem Qualifiers (1) Pneumonia: Qualified Code: J18.1 - Pneumonia of right lower lobe due to infectious organism Saulo Lara MD Feb 06, 2017 12:41
--- NOTE | 2017-02-06 16:57 | HHI.PR ---
Subjective Remarks 66 YOWM with COPD,Pl eff,DM Feels much better Denies Palpitation or CP pl fluid cultures negative Weaned to RA On cardiazem and Beta blockers for HR controll Objective Vital Signs Vital Signs Date Time Temp Pulse Resp B/P Pulse Ox O2 Delivery O2 Flow Rate FiO2 02/06/17 16:00 97.4 73 18 114/78 100 02/06/17 12:00 97.3 74 18 109/74 99 02/06/17 08:00 97.0 88 18 138/86 100 02/06/17 04:00 97.5 83 18 105/82 97 02/06/17 02:22 77 02/06/17 00:00 97.5 76 18 100/66 99 02/05/17 20:00 98.2 87 18 124/66 100 I/O 02/05/17 02/05/17 02/05/17 02/06/17 02/06/17 02/06/17 07:00 15:00 23:00 07:00 15:00 23:00 Intake Total 232 ml 550 ml 480 ml 720 ml 360 ml Output Total 175 ml 350 ml 300 ml 300 ml Balance 57 ml 200 ml 180 ml 420 ml 360 ml Intake Oral 120 ml 550 ml 480 ml 240 ml 360 ml IV Total 112 ml 480 ml Output Urine Total 175 ml 350 ml 300 ml 300 ml # Voids 1 4 # Bowel Movements 0 0 0 0 0 Result Diagram: 02/04/17 0342 02/04/17 0957 Objective Remarks GENERAL: MBMN WM NAD SKIN: Warm and dry. HEAD: Normocephalic. EYES: No scleral icterus. No injection or drainage. NECK: Supple, trachea midline. No JVD or lymphadenopathy. CARDIOVASCULAR: Regular rate and rhythm without murmurs, gallops, or rubs. RESPIRATORY: Breath sounds equal bilaterally. No accessory muscle use. GASTROINTESTINAL: Abdomen soft, non-tender, nondistended. MUSCULOSKELETAL: No cyanosis, or edema. BACK: Nontender without obvious deformity. No CVA tenderness. A/P Assessment and Plan Pleural effusion, s/p TC AF COPDDM PLAN: Aerosol nebs Cont Abx Wean 02 HR controll with cardizem and beta blockers. Stable on RA Kirt Duncan MD Feb 06, 2017 16:57
[2017-02-06] MEDS: ATORVASTATIN 40 MG TAB PO SCH (20:07)
[2017-02-06] MEDS: HEPARIN-D5W INJ 250 ML IV SCH (22:09)
[2017-02-07] VITALS (8 sets, daily range): BP systolic 107–154; BP diastolic 68–80; PULSE 64–89; RESP 18–20; TEMP 97.4–99.6; O2SAT 97–100
[2017-02-07] MEDS: CEFEPIME INJ 2,000 MG in SODIUM CHLORIDE 0.9% INJ 100 ML IV SCH ×2 (02:10→14:33)
[2017-02-07 06:57] LABS: ALT (GPT) 90 U/L (12-78); ANION GAP 14 MEQ/L (5-15); AST (GOT) 38 U/L (15-37); BICARBONATE 25.5 MEQ/L (21.0-32.0); BLOOD UREA NITROGEN 75 MG/DL (7-18); CHLORIDE 92 MEQ/L (98-107); GLOMERULAR FILTRATION RATE 28 ML/MIN (>89); POTASSIUM 4.2 MEQ/L (3.5-5.1); SODIUM (NA) 131 MEQ/L (136-145)
[2017-02-07 06:59] LABS: ALKALINE PHOSPHATASE 96 U/L (45-117); TOTAL BILIRUBIN ADULT 1.9 MG/DL (0.2-1.0)
[2017-02-07 07:00] LABS: AUTOMATED NEUTROPHIL # 8.3 TH/MM3 (1.8-7.7); BASOPHIL % 0.1 % (0.0-2.0); EOSINOPHIL % 0.3 % (0.0-4.0); HEMATOCRIT 36.5 % (39.0-51.0); HEMO FLAGS DIFF FINAL; LYMPH % 5.8 % (9.0-44.0); LYMPHOCYTE # 0.6 TH/MM3 (1.0-4.8); MEAN CELL VOLUME 92.8 FL (80.0-100.0); MEAN CORPUSCULAR HEMOGLOBIN 31.3 PG (27.0-34.0); MEAN CORPUSCULAR HGB CONC 33.7 % (32.0-36.0); MONO % 9.4 % (0.0-8.0); NEUT % 84.4 % (16.0-70.0); PLATELET COUNT 165 TH/MM3 (150-450); RED BLOOD COUNT 3.94 MIL/MM3 (4.50-5.90); RED CELL DISTRIBUTION WIDTH 18.5 % (11.6-17.2); WHITE BLOOD COUNT 9.8 TH/MM3 (4.0-11.0)
--- NOTE | 2017-02-07 07:58 | PD.CARD.PN ---
Subjective Subjective Remarks Pt reports legs still swollen Objective Medications Current Medications Medications (Trade) Dose Ordered Sig/Narda Route Start Time Stop Time Status Last Admin (Zofran Inj) 4 mg Q6H PRN IVP 01/31/17 20:30 (Milk Of Barron Galdamez) 30 ml Q12H PRN PO 01/31/17 20:30 (Narcan Inj) 0.4 mg UNSCH PRN IV 01/31/17 20:30 Miscellaneous Information Patient in critical care unit? Ass... Q361D XX 01/31/17 22:30 02/01/17 05:53 (Lipitor) 40 mg HS PO 02/01/17 21:00 02/06/17 20:07 (Theragran) 1 tab DAILY PO 02/01/17 09:00 02/06/17 08:40 (Heparin Inj) 5,000 units UNSCH PRN IV 02/01/17 15:00 Heparin Sodium (Porcine) 2500 units 2,500 units UNSCH PRN IV 02/01/17 15:00 (Heparin-D5W Inj) 250 ml @ 0 mls/hr TITRATE IV 02/01/17 09:00 02/06/17 22:09 Hydralazine HCl 10 mg 10 mg Q8H PRN IV PUSH 02/01/17 08:45 02/01/17 09:24 (Maxipime Inj/NS Inj) 100 ml @ 200 mls/hr Q12H IV 02/01/17 15:00 02/07/17 02:10 (Lopressor) 100 mg Q12HR PO 02/04/17 09:00 02/06/17 20:07 (Lasix) 40 mg BID@09,18 PO 02/04/17 09:00 02/06/17 16:44 (Cardizem Cd) 180 mg DAILY PO 02/05/17 09:00 02/06/17 08:40 (Restoril) 15 mg HS PRN PO 02/06/17 08:15 (Zaroxolyn) 2.5 mg DAILY PO 02/06/17 12:00 02/06/17 11:34 Vital Signs / I&O Vital Signs Date Time Temp Pulse Resp B/P Pulse Ox O2 Delivery O2 Flow Rate FiO2 02/07/17 04:00 97.7 89 18 121/70 97 02/07/17 00:30 84 02/07/17 00:00 98.1 73 18 107/71 97 02/06/17 20:00 97.4 79 18 120/77 99 02/06/17 16:00 97.4 73 18 114/78 100 02/06/17 12:00 97.3 74 18 109/74 99 02/06/17 08:00 97.0 88 18 138/86 100 I/O 02/06/17 02/06/17 02/06/17 02/07/17 02/07/17 02/07/17 07:00 15:00 23:00 07:00 15:00 23:00 Intake Total 720 ml 360 ml 240 ml 352 ml Output Total 300 ml 125 ml 1720 ml Balance 420 ml 360 ml 115 ml -1368 ml Intake Oral 240 ml 360 ml 240 ml 240 ml IV Total 480 ml 112 ml Output Urine Total 300 ml 125 ml 1720 ml # Voids 1 4 # Bowel Movements 0 0 0 0 Physical Exam GENERAL: Well developed, well nourished. No acute distress. HEENT: Jugular venous pressure is normal. CHEST: Lungs decreased, clear to auscultation bilaterally. Unlabored respiratory effort. CARDIAC: irregular rate and rhythm without S3, S4, or murmur. ABDOMEN: Soft, nontender, no hepatosplenomegaly. Bowel sounds present. EXTREMITIES: No clubbing,1+ edema. Laboratory Laboratory Tests Test 02/07/17 05:32 White Blood Count 9.8 TH/MM3 Red Blood Count 3.94 MIL/MM3 Hemoglobin 12.3 GM/DL Hematocrit 36.5 % Mean Corpuscular Volume 92.8 FL Mean Corpuscular Hemoglobin 31.3 PG Mean Corpuscular Hemoglobin 33.7 % Concent Red Cell Distribution Width 18.5 % Platelet Count 165 TH/MM3 Mean Platelet Volume 10.0 FL Neutrophils (%) (Auto) 84.4 % Lymphocytes (%) (Auto) 5.8 % Monocytes (%) (Auto) 9.4 % Eosinophils (%) (Auto) 0.3 % Basophils (%) (Auto) 0.1 % Neutrophils # (Auto) 8.3 TH/MM3 Lymphocytes # (Auto) 0.6 TH/MM3 Monocytes # (Auto) 0.9 TH/MM3 Eosinophils # (Auto) 0.0 TH/MM3 Basophils # (Auto) 0.0 TH/MM3 CBC Comment DIFF FINAL Differential Comment Sodium Level 131 MEQ/L Potassium Level 4.2 MEQ/L Chloride Level 92 MEQ/L Carbon Dioxide Level 25.5 MEQ/L Anion Gap 14 MEQ/L Blood Urea Nitrogen 75 MG/DL Creatinine 2.38 MG/DL Estimat Glomerular Filtration 28 ML/MIN Rate Random Glucose 112 MG/DL Calcium Level 8.6 MG/DL Total Bilirubin 1.9 MG/DL Aspartate Amino Transf 38 U/L (AST/SGOT) Alanine Aminotransferase 90 U/L (ALT/SGPT) Alkaline Phosphatase 96 U/L Total Protein 6.2 GM/DL Albumin 2.1 GM/DL Assessment and Plan Assessment and Plan Atrial fibrillation - new onset atrial fibrillation: rate controlled -CHADS-VASc score=3, HTN, CHF/EF 25%, possibly for diabetes, on heparin -on heparin Cardiomyopathy- EF 25% acute systolic CHF -optimize med therapy, decrease dilt and increase metoprolol 02/04- no change; BP too low for JEAN CHF-continue to optimize, edema- multifactorial, malnourished, CKD, CHF Weakness- PT, further per primary team Pneumonia - This is being managed by the primary team. Acute renal insufficiency - This is being managed by the primary team. Elevated LFTs - We will use caution with his p.o. medications. Hyponatremia - This is being managed by primary team. Leonora Warner MD Feb 07, 2017 07:58
[2017-02-07] MEDS: METOPROLOL TARTRATE 100 MG TAB PO SCH ×2 (08:24→22:37)
[2017-02-07] MEDS: METOLAZONE 2.5 MG TAB PO SCH (08:25)
[2017-02-07] MEDS: FUROSEMIDE 40 MG TAB PO SCH ×2 (08:25→17:11)
[2017-02-07] MEDS: MULTIVITAMIN TAB PO SCH (08:25)
[2017-02-07] MEDS: DILTIAZEM-CD 120 MG CAP ER PO SCH (08:29)
--- NOTE | 2017-02-07 08:39 | HHI.PR ---
Subjective Remarks Follow-up atrial flutter with RVR/right pleural effusion status post thoracentesis/anasarca/community-acquired pneumonia 02/03/17-patient seen and examined, status post right sided pleurocentesis and patient currently denies any chest pain or shortness of breath. 02/04/17-patient seen and examined, resting quietly and no acute event overnight. 02/05/17-patient seen and examined, currently rate control. Patient was transfer yesterday secondary to flutter with RVR for which he was started on Cardizem drip and transferred to 4 N 02/06/17-patient seen and examined. Breathing better and denies any chest pain or heart palpitation. However only complaint is insomnia at night 02/07/17-patient seen and examined, complained of insomnia otherwise no other issues. Denies any chest pain or shortness of breath. Soft BP Objective Vitals Vital Signs Date Time Temp Pulse Resp B/P Pulse Ox O2 Delivery O2 Flow Rate FiO2 02/07/17 04:00 97.7 89 18 121/70 97 02/07/17 00:30 84 02/07/17 00:00 98.1 73 18 107/71 97 02/06/17 20:00 97.4 79 18 120/77 99 02/06/17 16:00 97.4 73 18 114/78 100 02/06/17 12:00 97.3 74 18 109/74 99 I/O 02/06/17 02/06/17 02/06/17 02/07/17 02/07/17 02/07/17 07:00 15:00 23:00 07:00 15:00 23:00 Intake Total 720 ml 360 ml 240 ml 352 ml Output Total 300 ml 125 ml 1720 ml Balance 420 ml 360 ml 115 ml -1368 ml Intake Oral 240 ml 360 ml 240 ml 240 ml IV Total 480 ml 112 ml Output Urine Total 300 ml 125 ml 1720 ml # Voids 1 4 # Bowel Movements 0 0 0 0 Result Diagram: 02/07/17 0532 02/07/17 0532 Objective Remarks GENERAL: NAD and sitting by the side of the bed SKIN: Warm and dry. HEAD: Normocephalic. EYES: No scleral icterus. No injection or drainage. NECK: Supple, trachea midline. No JVD or lymphadenopathy. CARDIOVASCULAR: Irregular Regular rate and rhythm without murmurs, gallops, or rubs. RESPIRATORY: Breath sounds equal bilaterally. No accessory muscle use. GASTROINTESTINAL: Abdomen soft, non-tender, nondistended. MUSCULOSKELETAL: No cyanosis, positive for anasarca BACK: Nontender without obvious deformity. No CVA tenderness. Procedures none A/P Problem List: (1) Pneumonia ICD Code: J18.9 Status: Acute (2) Atrial flutter with rapid ventricular response ICD Code: I48.92 Status: Acute (3) Abdominal pain ICD Code: R10.9 Status: Acute (4) Acute kidney failure ICD Code: N17.9 Status: Acute (5) Elevated LFTs ICD Code: R94.5 Status: Acute (6) Edema ICD Code: R60.9 Status: Acute (7) Hyponatremia ICD Code: E87.1 Status: Acute (8) Lactic acidosis ICD Code: E87.2 Status: Acute (9) Pleural effusion ICD Code: J90 Status: Acute Assessment and Plan 66-year-old man with Pneumonia with right pleural effusion -continue IV antibiotic including cefepime -s/p thoracentesis 02/02/17 culture negative -ID and pulmonary ff Cardiomyopathy echo with EF 20-25% and diffuse hypokinesis, however patient declined nuclear or left heart catheterization continue diuretic including Lasix 40 mg by mouth twice a day and Metolazone cardiology following. Cholelithiasis - surgery evaluation appreciated; no plan for surgery at this time -Hepatitis profile negative elevated LFT's- likely due to liver congestion due to CHF-improving MRCP with a large gallstone in the gallbladder. - hepatitis panel negative -GI following. Atrial/flutter fibrillation with RVR -Decrease Cardizem CD to 120 mg daily and Lopressor 200 mg by mouth twice a day -on Heparin drip -Cardiology following renal insufficiency with unknown duration -Appreciate input from nephrology -Renal indices improving -Avoid nephrotoxic drugs Hyponatremia likely due to fluid overload- improving Insomnia: Restoril when necessary DVT prophylaxis: Heparin Problem Qualifiers (1) Pneumonia: Qualified Code: J18.1 - Pneumonia of right lower lobe due to infectious organism Naif Orozco MD Feb 07, 2017 08:39
[2017-02-07 09:11] LABS: APTT (PATIENT) 51.9 SEC (24.3-30.1)
--- NOTE | 2017-02-07 11:52 | HHI.NPPN ---
Subjective Complaints: Shortness of Breath General Problems: Edema, Hypertension Renal Failure: Acute Interval History Creatinine is better. Sodium is also better. (Marsha Degroot) Review of Systems General Constitutional: Fatigue (Marsha Degroot) Respiratory Lungs: SOB, Cough Respiratory Remarks sob improved (Marsha Degroot) Cardiovascular Cardiac: Edema (Marsha Degroot) Objective Data Data 02/06/17 02/07/17 19:00 07:00 Intake Total 360 ml 592 ml Output Total 1845 ml Balance 360 ml -1253 ml Intake Oral 360 ml 480 ml IV Total 112 ml Output Urine Total 1845 ml # Voids 4 # Bowel Movements 0 0 Vital Signs Date Time Temp Pulse Resp B/P Pulse Ox O2 Delivery O2 Flow Rate FiO2 02/07/17 08:00 97.4 87 20 133/77 99 02/07/17 04:00 97.7 89 18 121/70 97 02/07/17 00:30 84 02/07/17 00:00 98.1 73 18 107/71 97 02/06/17 20:00 97.4 79 18 120/77 99 02/06/17 16:00 97.4 73 18 114/78 100 02/06/17 12:00 97.3 74 18 109/74 99 (Marsha Degroot) -: 02/07/17 0532 02/07/17 0532 Drip Comment heparin (Marsha Degroot) Physical Exam General Appearance: Well Developed, Well Nourished, No Acute Distress, Comfortable ( Marsha Degroot) Throat Throat Exam: Oral Mucosa [place] & Moist (Marsha Degroot) Pulmonary Resp Exam: Breath Sounds Equal, No Distress Resp Remarks dull on right base (Marsha Degroot) Cardiology CV Exam: Irregular (Marsha Degroot) Gastrointestinal/Abdomen GI Exam: Soft, Non-Tender, Bowel Sounds Present (Marsha Degroot) Musculoskeletal MS Exam: Joints Intact, Normal Tone (Marsha Degroot) Integumentary Skin Exam: Warm, Dry, Intact (Marsha Degroot) Extremeties Extremities Exam: Moderate Edema, Pitting Edema, Dependent Edema (Marsha Degroot) Neurologic Neuro Exam: Alert, Awake, Oriented, Speech Clear (Marsha Degroot) Psychiatric Psych Exam: Appropriate Responses (Marsha Degroot) Assessment/Plan Discussed Condition With: Patient Assessment Summary: VERONICA/Acute Renal Failure, Hypertension, Diabetes Mellitus Electrolyte Assessment: Hyponatremia Problem List: (1) Acute kidney failure Plan: Baseline renal function is not known. Likely has underlying CKD, has cardiorenal syndrome. his creatinine has improved electrolytes unremarkable Volume overload persists, continue diuresis, metolazone was added with the Lasix monitor urine output Avoid nephrotoxic agents. BP borderline low, JEAN not started serologies and SPEP are negative (2) Hyponatremia Plan: hypervolemic hyponatremia, improving continue loop diuretic continue with fluid restriction. 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 (6) Pleural effusion Plan: s/p thoracentesis with 1L fluid removal pulmonary status improved Pulmonary following. (7) Thrombocytopenia Plan: Resolved. LDH is not high. Plan p (Marsha Degroot) Plan patient was seen and examined. His renal function is stable. Ok to discharge if cleared by cardiology. (Noe Kapoor MD) Problem Qualifiers (1) Pneumonia: Qualified Code: J18.1 - Pneumonia of right lower lobe due to infectious organism Marsha Degroot Feb 07, 2017 11:52 Noe Kapoor MD Feb 08, 2017 11:46
--- NOTE | 2017-02-07 19:59 | HHI.PR ---
Subjective Remarks 66 YOWM with COPD,Pl eff,DM Feels much better Denies Palpitation or CP pl fluid cultures negative Weaned to RA Objective Vital Signs Vital Signs Date Time Temp Pulse Resp B/P Pulse Ox O2 Delivery O2 Flow Rate FiO2 02/07/17 16:00 99.6 86 20 140/80 98 02/07/17 12:00 98.1 64 20 123/68 100 02/07/17 08:00 84 02/07/17 08:00 97.4 87 20 133/77 99 02/07/17 04:00 97.7 89 18 121/70 97 02/07/17 00:30 84 02/07/17 00:00 98.1 73 18 107/71 97 02/06/17 20:00 97.4 79 18 120/77 99 I/O 02/06/17 02/06/17 02/06/17 02/07/17 02/07/17 02/07/17 07:00 15:00 23:00 07:00 15:00 23:00 Intake Total 720 ml 360 ml 240 ml 352 ml Output Total 300 ml 125 ml 1720 ml 750 ml 500 ml Balance 420 ml 360 ml 115 ml -1368 ml -750 ml -500 ml Intake Oral 240 ml 360 ml 240 ml 240 ml IV Total 480 ml 112 ml Output Urine Total 300 ml 125 ml 1720 ml 750 ml 500 ml # Voids 1 4 # Bowel Movements 0 0 0 0 Result Diagram: 02/07/17 0532 02/07/17 0532 Objective Remarks GENERAL: MBMN WM NAD SKIN: Warm and dry. HEAD: Normocephalic. EYES: No scleral icterus. No injection or drainage. NECK: Supple, trachea midline. No JVD or lymphadenopathy. CARDIOVASCULAR: Regular rate and rhythm without murmurs, gallops, or rubs. RESPIRATORY: Breath sounds equal bilaterally. No accessory muscle use. GASTROINTESTINAL: Abdomen soft, non-tender, nondistended. MUSCULOSKELETAL: No cyanosis, or edema. BACK: Nontender without obvious deformity. No CVA tenderness. A/P Assessment and Plan Pleural effusion, s/p TC AF COPDDM PLAN: Aerosol nebs Cont Abx Wean 02 HR controll with cardizem and beta blockers. Stable on RA DC Plans underway Kirt Duncan MD Feb 07, 2017 19:59
[2017-02-07] MEDS: ATORVASTATIN 40 MG TAB PO SCH (22:39)
[2017-02-07] MEDS: HEPARIN-D5W INJ 250 ML IV SCH (22:41)
[2017-02-08] VITALS: BP 113/75; PULSE 65; RESP 18; TEMP 97.5; O2SAT 99
[2017-02-08 04:00] VITALS: BP 128/63; PULSE 65; RESP 18; TEMP 97.9; O2SAT 99
[2017-02-08] MEDS: CEFEPIME INJ 2,000 MG in SODIUM CHLORIDE 0.9% INJ 100 ML IV SCH (04:42)
[2017-02-08 08:00] VITALS: BP 147/81; PULSE 86; PULSE 91; RESP 17; TEMP 97.4; O2SAT 98
--- NOTE | 2017-02-08 08:00 | PD.CARD.PN ---
Subjective Subjective Remarks Pt requests d/c Objective Medications Current Medications Medications (Trade) Dose Ordered Sig/Narda Route Start Time Stop Time Status Last Admin (Zofran Inj) 4 mg Q6H PRN IVP 01/31/17 20:30 (Milk Of Barron Galdamez) 30 ml Q12H PRN PO 01/31/17 20:30 (Narcan Inj) 0.4 mg UNSCH PRN IV 01/31/17 20:30 Miscellaneous Information Patient in critical care unit? Ass... Q361D XX 01/31/17 22:30 02/01/17 05:53 (Lipitor) 40 mg HS PO 02/01/17 21:00 02/07/17 22:39 (Theragran) 1 tab DAILY PO 02/01/17 09:00 02/07/17 08:25 (Heparin Inj) 5,000 units UNSCH PRN IV 02/01/17 15:00 Heparin Sodium (Porcine) 2500 units 2,500 units UNSCH PRN IV 02/01/17 15:00 (Heparin-D5W Inj) 250 ml @ 0 mls/hr TITRATE IV 02/01/17 09:00 02/07/17 22:41 Hydralazine HCl 10 mg 10 mg Q8H PRN IV PUSH 02/01/17 08:45 02/01/17 09:24 (Maxipime Inj/NS Inj) 100 ml @ 200 mls/hr Q12H IV 02/01/17 15:00 02/08/17 04:42 (Lasix) 40 mg BID@09,18 PO 02/04/17 09:00 02/07/17 17:11 (Restoril) 15 mg HS PRN PO 02/06/17 08:15 (Zaroxolyn) 2.5 mg DAILY PO 02/06/17 12:00 02/07/17 08:25 (Cardizem Cd) 120 mg DAILY PO 02/07/17 09:00 02/07/17 08:29 (Lopressor) 150 mg Q12HR PO 02/07/17 09:00 02/07/17 22:37 Vital Signs / I&O Vital Signs Date Time Temp Pulse Resp B/P Pulse Ox O2 Delivery O2 Flow Rate FiO2 02/08/17 04:00 97.9 65 18 128/63 99 02/08/17 00:00 97.5 65 18 113/75 99 02/07/17 20:00 97.7 87 18 154/75 98 02/07/17 16:00 99.6 86 20 140/80 98 02/07/17 12:00 98.1 64 20 123/68 100 02/07/17 08:00 84 02/07/17 08:00 97.4 87 20 133/77 99 I/O 02/07/17 02/07/17 02/07/17 02/08/17 02/08/17 02/08/17 07:00 15:00 23:00 07:00 15:00 23:00 Intake Total 352 ml 480 ml 480 ml Output Total 1720 ml 750 ml 1350 ml 1000 ml Balance -1368 ml -750 ml -870 ml -520 ml Intake Oral 240 ml 480 ml 480 ml IV Total 112 ml Output Urine Total 1720 ml 750 ml 1350 ml 1000 ml # Bowel Movements 0 0 0 Physical Exam GENERAL: Well developed, well nourished. No acute distress. HEENT: Jugular venous pressure is normal. CHEST: Lungs decreased, clear to auscultation bilaterally. Unlabored respiratory effort. CARDIAC: irregular rate and rhythm without S3, S4, or murmur. ABDOMEN: Soft, nontender, no hepatosplenomegaly. Bowel sounds present. EXTREMITIES: No clubbing,1+ edema. Laboratory Laboratory Tests Test 02/07/17 02/08/17 08:39 06:08 Activated Partial 51.9 SEC 58.0 SEC Thromboplast Time Assessment and Plan Assessment and Plan Atrial fibrillation - new onset atrial fibrillation: rate controlled -CHADS-VASc score=2-3, HTN, CHF/EF 25%, possibly for diabetes, -recent thrombocytopenia resolved, questionable compliance[facility] Cardiomyopathy- EF 25% acute systolic CHF -good on present meds 02/08- no change; no JEAN with CKD CHF- reasonable control, ok for d/c - out patient evaluation for ischemia per pt request edema- multifactorial, malnourished, CKD, CHF Weakness- PT, further per primary team Pneumonia - This is being managed by the primary team. Acute renal insufficiency - This is being managed by the primary team. Hyponatremia - This is being managed by primary team. Leonora Warner MD Feb 08, 2017 08:00
[2017-02-08] MEDS: MULTIVITAMIN TAB PO SCH (08:15)
[2017-02-08] MEDS: METOPROLOL TARTRATE 100 MG TAB PO SCH (08:15)
[2017-02-08] MEDS: DILTIAZEM-CD 120 MG CAP ER PO SCH (08:15)
[2017-02-08] MEDS: FUROSEMIDE 40 MG TAB PO SCH (08:15)
[2017-02-08] MEDS: METOLAZONE 2.5 MG TAB PO SCH (08:16)
--- NOTE | 2017-02-08 10:20 | HHI.PR ---
Subjective Remarks Follow-up atrial flutter with RVR/right pleural effusion status post thoracentesis/anasarca/community-acquired pneumonia 02/03/17-patient seen and examined, status post right sided pleurocentesis and patient currently denies any chest pain or shortness of breath. 02/04/17-patient seen and examined, resting quietly and no acute event overnight. 02/05/17-patient seen and examined, currently rate control. Patient was transfer yesterday secondary to flutter with RVR for which he was started on Cardizem drip and transferred to 4 N 02/06/17-patient seen and examined. Breathing better and denies any chest pain or heart palpitation. However only complaint is insomnia at night 02/07/17-patient seen and examined, complained of insomnia otherwise no other issues. Denies any chest pain or shortness of breath. Soft BP 02/08/17-patient seen and examined; no significant shortness of breath and denies any chest pain. wants to go home Objective Vitals Vital Signs Date Time Temp Pulse Resp B/P Pulse Ox O2 Delivery O2 Flow Rate FiO2 02/08/17 08:00 91 02/08/17 04:00 97.9 65 18 128/63 99 02/08/17 00:00 97.5 65 18 113/75 99 02/07/17 21:27 87 02/07/17 20:00 97.7 87 18 154/75 98 02/07/17 16:00 99.6 86 20 140/80 98 02/07/17 12:00 98.1 64 20 123/68 100 I/O 02/07/17 02/07/17 02/07/17 02/08/17 02/08/17 02/08/17 07:00 15:00 23:00 07:00 15:00 23:00 Intake Total 352 ml 480 ml 480 ml Output Total 1720 ml 750 ml 1350 ml 1000 ml Balance -1368 ml -750 ml -870 ml -520 ml Intake Oral 240 ml 480 ml 480 ml IV Total 112 ml Output Urine Total 1720 ml 750 ml 1350 ml 1000 ml # Bowel Movements 0 0 0 Result Diagram: 02/07/17 0532 02/07/17 0532 Imaging Last Impressions Thoracentesis Ultrasound 02/02/17 0000 Signed Impressions: Service Date/Time: Thursday, February 02, 2017 11:24 - CONCLUSION: Uncomplicated ultrasound guided thoracentesis. Eliud Garces MD FACR Chest X-Ray 02/02/17 0000 Signed Impressions: Service Date/Time: Thursday, February 02, 2017 12:13 - CONCLUSION: Negative for pneumothorax. Consolidative changes and minimal fluid persists on the right. Eliud Garces MD FACR Cholangiopancreatography MRI 02/01/17 0000 Signed Impressions: Service Date/Time: Wednesday, February 01, 2017 18:17 - CONCLUSION: 1. There is a large gallstone in the gallbladder. 2. No definite biliary tract obstruction. 3. There is a small amount of ascites in the upper abdomen with nonspecific edema in the mesenteric fat. Cem Lee MD Chest Ultrasound 02/01/17 0000 Signed Impressions: Service Date/Time: Wednesday, February 01, 2017 15:28 - CONCLUSION: Right pleural effusion. Christos Euceda MD Chest CT 02/01/17 0000 Signed Impressions: Service Date/Time: Wednesday, February 01, 2017 17:48 - CONCLUSION: 1. Large right-sided pleural effusion with parenchymal consolidation in the right lower lung. 2. Small left effusion. Cem Lee MD Abdomen/Pelvis CT 02/01/17 0000 Signed Impressions: Service Date/Time: Wednesday, February 01, 2017 17:48 - CONCLUSION: 1. Small to moderate amount of ascitic fluid with nonspecific bowel gas pattern. His findings are nonspecific. Infection cannot be excluded. There is no distinct focal abscess on this noncontrast study performed without oral contrast. 2. Densely calcified gallstone. 3. Moderate size right pleural effusion consolidation and possible rounded atelectasis in the right lower lobe. There is a smaller left effusion. Jacob Graham MD Abdomen X-Ray 01/31/17 1807 Signed Impressions: Service Date/Time: Tuesday, January 31, 2017 18:27 - CONCLUSION: 1. Nonspecific bowel gas pattern. 2. Calcification right upper quadrant most likely representing a gallstone. Cem Lee MD Gall Bladder Ultrasound 01/31/17 0000 Signed Impressions: Service Date/Time: Tuesday, January 31, 2017 20:24 - CONCLUSION: 1. Cholelithiasis with mild gallbladder wall thickening. 2. Moderate to large right effusion. 3. Ascitic fluid in the right lower quadrant. Jacob Graham MD Objective Remarks GENERAL: NAD and sitting by the side of the bed SKIN: Warm and dry. HEAD: Normocephalic. EYES: No scleral icterus. No injection or drainage. NECK: Supple, trachea midline. No JVD or lymphadenopathy. CARDIOVASCULAR: Irregular Regular rate and rhythm without murmurs, gallops, or rubs. RESPIRATORY: Breath sounds equal bilaterally. No accessory muscle use. GASTROINTESTINAL: Abdomen soft, non-tender, nondistended. MUSCULOSKELETAL: No cyanosis, improving anasarca BACK: Nontender without obvious deformity. No CVA tenderness. Procedures none A/P Problem List: (1) Pneumonia ICD Code: J18.9 Status: Acute (2) Atrial flutter with rapid ventricular response ICD Code: I48.92 Status: Acute (3) Abdominal pain ICD Code: R10.9 Status: Acute (4) Acute kidney failure ICD Code: N17.9 Status: Acute (5) Elevated LFTs ICD Code: R94.5 Status: Acute (6) Edema ICD Code: R60.9 Status: Acute (7) Hyponatremia ICD Code: E87.1 Status: Acute (8) Lactic acidosis ICD Code: E87.2 Status: Acute (9) Pleural effusion ICD Code: J90 Status: Acute Assessment and Plan 66-year-old man with Pneumonia with right pleural effusion -continue IV antibiotic including cefepime -s/p thoracentesis 02/02/17 culture negative -ID and pulmonary ff Cardiomyopathy echo with EF 20-25% and diffuse hypokinesis, however patient declined nuclear or left heart catheterization continue diuretic including Lasix 40 mg by mouth twice a day and Metolazone cardiology following. Cholelithiasis - surgery evaluation appreciated; no plan for surgery at this time -Hepatitis profile negative elevated LFT's- likely due to liver congestion due to CHF-improving MRCP with a large gallstone in the gallbladder. - hepatitis panel negative -GI following. Atrial/flutter fibrillation with RVR -on Cardizem CD 120 mg daily and Lopressor 200 mg by mouth twice a day -on Heparin drip however outpatient MD to consider OAC. patient with thrombocytopenia and compliance as an issue -Cardiology following renal insufficiency with unknown duration -Appreciate input from nephrology -Renal indices improving -Avoid nephrotoxic drugs Hyponatremia likely due to fluid overload- improving Insomnia: Restoril when necessary DVT prophylaxis: Heparin Problem Qualifiers (1) Pneumonia: Qualified Code: J18.1 - Pneumonia of right lower lobe due to infectious organism Naif Orozco MD Feb 08, 2017 10:20
[2017-02-08] MEDS ORDERED: METO-338 PO (10:23)
[2017-02-08] MEDS ORDERED: METO2.5T PO (10:23)
[2017-02-08] MEDS ORDERED: CARD120C4 PO (10:23)
[2017-02-08] MEDS ORDERED: POTA-163 PO (10:23)
[2017-02-08] MEDS ORDERED: FURO40TA PO (10:23)
--- NOTE | 2017-02-08 10:24 | HHI.FF ---
Face to Face Verification Diagnosis: (1) Atrial flutter with rapid ventricular response (2) Pneumonia (3) Acute kidney failure (4) Pleural effusion Physical Therapy Order: Evaluate and Treat Home Health Nursing Order: Signs/symptoms of disease process I have seen patient Demetrius Torres on 02/08/17. My clinical findings support the need for the requested home health care services because: Patient has SOB Deconditioned w/ increased weakness I certify that my clinical findings support that this patient is homebound because: Poor cardiac reserve Naif Orozco MD Feb 08, 2017 10:24
--- NOTE | 2017-02-08 11:02 | HHI.NPPN ---
Subjective Complaints: Shortness of Breath General Problems: Edema, Hypertension Renal Failure: Acute Interval History Edema is better. Good urine output. Renal labs in process. He is requesting discharge. (Marsha Degroot) Review of Systems General Constitutional: Fatigue (Marsha Degroot) Respiratory Lungs: SOB, Cough Respiratory Remarks sob improved (Marsha Degroot) Cardiovascular Cardiac: Edema (Marsha Degroot) Objective Data Data 02/07/17 02/08/17 19:00 07:00 Intake Total 960 ml Output Total 1250 ml 1850 ml Balance -1250 ml -890 ml Intake Oral 960 ml Output Urine Total 1250 ml 1850 ml # Bowel Movements 0 Vital Signs Date Time Temp Pulse Resp B/P Pulse Ox O2 Delivery O2 Flow Rate FiO2 02/08/17 08:00 91 02/08/17 08:00 97.4 86 17 147/81 98 02/08/17 04:00 97.9 65 18 128/63 99 02/08/17 00:00 97.5 65 18 113/75 99 02/07/17 21:27 87 02/07/17 20:00 97.7 87 18 154/75 98 02/07/17 16:00 99.6 86 20 140/80 98 02/07/17 12:00 98.1 64 20 123/68 100 (Marsha Degroot) -: 02/07/17 0532 02/07/17 0532 Imaging Last Impressions Thoracentesis Ultrasound 02/02/17 0000 Signed Impressions: Service Date/Time: Thursday, February 02, 2017 11:24 - CONCLUSION: Uncomplicated ultrasound guided thoracentesis. Eliud Garces MD FACR Chest X-Ray 02/02/17 0000 Signed Impressions: Service Date/Time: Thursday, February 02, 2017 12:13 - CONCLUSION: Negative for pneumothorax. Consolidative changes and minimal fluid persists on the right. Eliud Garces MD FACR Cholangiopancreatography MRI 02/01/17 0000 Signed Impressions: Service Date/Time: Wednesday, February 01, 2017 18:17 - CONCLUSION: 1. There is a large gallstone in the gallbladder. 2. No definite biliary tract obstruction. 3. There is a small amount of ascites in the upper abdomen with nonspecific edema in the mesenteric fat. Cem Lee MD Chest Ultrasound 02/01/17 0000 Signed Impressions: Service Date/Time: Wednesday, February 01, 2017 15:28 - CONCLUSION: Right pleural effusion. Christos Euceda MD Chest CT 02/01/17 0000 Signed Impressions: Service Date/Time: Wednesday, February 01, 2017 17:48 - CONCLUSION: 1. Large right-sided pleural effusion with parenchymal consolidation in the right lower lung. 2. Small left effusion. Cem Lee MD Abdomen/Pelvis CT 02/01/17 0000 Signed Impressions: Service Date/Time: Wednesday, February 01, 2017 17:48 - CONCLUSION: 1. Small to moderate amount of ascitic fluid with nonspecific bowel gas pattern. His findings are nonspecific. Infection cannot be excluded. There is no distinct focal abscess on this noncontrast study performed without oral contrast. 2. Densely calcified gallstone. 3. Moderate size right pleural effusion consolidation and possible rounded atelectasis in the right lower lobe. There is a smaller left effusion. Jacob Graham MD Abdomen X-Ray 01/31/17 1807 Signed Impressions: Service Date/Time: Tuesday, January 31, 2017 18:27 - CONCLUSION: 1. Nonspecific bowel gas pattern. 2. Calcification right upper quadrant most likely representing a gallstone. Cem Lee MD Gall Bladder Ultrasound 01/31/17 0000 Signed Impressions: Service Date/Time: Tuesday, January 31, 2017 20:24 - CONCLUSION: 1. Cholelithiasis with mild gallbladder wall thickening. 2. Moderate to large right effusion. 3. Ascitic fluid in the right lower quadrant. Jacob Graham MD Drip Comment heparin (Marsha Degroot) Physical Exam General Appearance: Well Developed, Well Nourished, No Acute Distress, Comfortable ( Marsha Degroot SPA THERAPIST) Throat Throat Exam: Oral Mucosa [place] & Moist (Marsha Degroot SPA THERAPIST) Pulmonary Resp Exam: Breath Sounds Equal, No Distress Resp Remarks dull on right base (Marsha Degroot SPA THERAPIST) Cardiology CV Exam: Irregular (Marsha Degroot SPA THERAPIST) Gastrointestinal/Abdomen GI Exam: Soft, Non-Tender, Bowel Sounds Present (Marsha Degroot) Musculoskeletal MS Exam: Joints Intact, Normal Tone (Marsha Degroot) Integumentary Skin Exam: Warm, Dry, Intact (Marsha Degroot) Extremeties Extremities Exam: Moderate Edema, Pitting Edema, Dependent Edema (Marsha Degroot) Neurologic Neuro Exam: Alert, Awake, Oriented, Speech Clear (Marsha Degroot) Psychiatric Psych Exam: Appropriate Responses (Marsha Degroot) Assessment/Plan Discussed Condition With: Patient Assessment Summary: VERONICA/Acute Renal Failure, Hypertension, Diabetes Mellitus Electrolyte Assessment: Hyponatremia Problem List: (1) Acute kidney failure Plan: Baseline renal function is not known. Likely has underlying CKD, has cardiorenal syndrome. his creatinine had improved, todays labs in process continue diuresis, metolazone and Lasix monitor urine output Avoid nephrotoxic agents. BP borderline low, JEAN not started serologies and SPEP are negative he is stable for discharge from renal perspective, we will follow up in one month (2) Hyponatremia Plan: hypervolemic hyponatremia, improved; repeat Na ordered continue loop diuretic with fluid restriction in home setting, discussed with pt (3) Atrial flutter with rapid ventricular response Plan: new onset this admission, cardiology has cleared for discharge rate controlled with oral Cardizem and metoprolol Chads Vasc score 3, on heparin gtt [facility], Coumadin to be started and INR followed (4) Abnormal gallbladder ultrasound Plan: MRCP reviewed, he does have large gallstone GI and surgery consulted, no plans for surgery at this time he also has ascites on imaging await further recommendations (5) Pneumonia Plan: ID consulted, pulmonary following He is on Cefepime. (6) Pleural effusion Plan: s/p thoracentesis with 1L fluid removal pulmonary status improved Pulmonary following. (7) Thrombocytopenia Plan: Resolved. LDH is not high. (Marsha Degroot) Plan patient was seen and examined. Renal function is poor, but stable. No need for dialysis at this time. If discharged, we will follow him in our office. Instructions were given. Eventually he will benefit from JEAN inhibitor/ARB. He needs to be discharged on diuretic. (Noe Kapoor MD) Problem Qualifiers (1) Pneumonia: Qualified Code: J18.1 - Pneumonia of right lower lobe due to infectious organism Marsha Degroot Feb 08, 2017 11:02 Noe Kapoor MD Feb 08, 2017 12:04
--- NOTE | 2017-02-08 11:15 | HHI.PR ---
Subjective Remarks 66 YOWM with COPD,Pl eff,DM Feels much better Denies Palpitation or CP pl fluid cultures negative Weaned to RA Comfortable, no new complaint Objective Vital Signs Vital Signs Date Time Temp Pulse Resp B/P Pulse Ox O2 Delivery O2 Flow Rate FiO2 02/08/17 08:00 91 02/08/17 08:00 97.4 86 17 147/81 98 02/08/17 04:00 97.9 65 18 128/63 99 02/08/17 00:00 97.5 65 18 113/75 99 02/07/17 21:27 87 02/07/17 20:00 97.7 87 18 154/75 98 02/07/17 16:00 99.6 86 20 140/80 98 02/07/17 12:00 98.1 64 20 123/68 100 I/O 02/07/17 02/07/17 02/07/17 02/08/17 02/08/17 02/08/17 07:00 15:00 23:00 07:00 15:00 23:00 Intake Total 352 ml 480 ml 480 ml Output Total 1720 ml 750 ml 1350 ml 1000 ml Balance -1368 ml -750 ml -870 ml -520 ml Intake Oral 240 ml 480 ml 480 ml IV Total 112 ml Output Urine Total 1720 ml 750 ml 1350 ml 1000 ml # Bowel Movements 0 0 0 Result Diagram: 02/07/1753102/07/17531 Objective Remarks GENERAL: MBMN WM NAD SKIN: Warm and dry. HEAD: Normocephalic. EYES: No scleral icterus. No injection or drainage. NECK: Supple, trachea midline. No JVD or lymphadenopathy. CARDIOVASCULAR: Regular rate and rhythm without murmurs, gallops, or rubs. RESPIRATORY: Breath sounds equal bilaterally. No accessory muscle use. GASTROINTESTINAL: Abdomen soft, non-tender, nondistended. MUSCULOSKELETAL: No cyanosis, or edema. BACK: Nontender without obvious deformity. No CVA tenderness. A/P Assessment and Plan Pleural effusion, s/p TC AF COPDDM PLAN: Aerosol nebs Cont Abx. Stable on RA DC Plans underway Stable from pulm standpoint Kirt Duncan MD Feb 08, 2017 11:15
[2017-02-08 11:26] VITALS: BP 140/72; PULSE 65; RESP 16; TEMP 97.4; O2SAT 100
[2017-02-08 11:47] LABS: POTASSIUM 3.5 MEQ/L (3.5-5.1)
--- NOTE | 2017-02-08 11:55 | HHI.DS ---
Discharge Summary Admission Date Jan 31, 2017 at 20:30 Discharge Date: Feb 08, 2017 Admitting Diagnosis A flutter with RVR, hyponatremia, renal insufficiency, transaminitis (1) Pneumonia ICD Code: J18.9 (2) Atrial flutter with rapid ventricular response ICD Code: I48.92 (3) Abdominal pain ICD Code: R10.9 (4) Acute kidney failure ICD Code: N17.9 (5) Elevated LFTs ICD Code: R94.5 (6) Edema ICD Code: R60.9 (7) Hyponatremia ICD Code: E87.1 (8) Lactic acidosis ICD Code: E87.2 (9) Pleural effusion ICD Code: J90 Procedures none Brief History - From Admission 66 y/o with a history of DM, HTN, hyperlipidemia and COPD was sent to the ED from the ID for abnormal chest CT. Patient explains that all his problems started 3-4 weeks ago when fluid was found in his lungs, at the ID he reportedly had a thoracentesis. He followed up with the ID today who sent him for a CT scan and told him he needed to be admitted to a hospital. He was not told what the CT showed. Yesterday he states he felt dizzy and lost his balance and fall. Denies loss of consciousness, but does have pain in the sacral region where he landed. He complains of a dry cough with no sputum production and increased swelling in his legs. He is also complaining of swelling and pain on the right side of his abdomen. He states he feels feverish but no documented temp. He denies any chest pain, chills, nausea , vomiting, constipation or diarrhea. He was on Levaquin at some point from the ID but is unsure when he last took it. Records are being requested from the ID. CBC/BMP: 02/07/17 0532 02/08/17 1100 Significant Findings Laboratory Tests Test 02/07/17 02/07/17 02/08/17 02/08/17 05:32 08:39 06:08 11:00 Red Blood Count 3.94 MIL/MM3 (4.50-5.90) Hemoglobin 12.3 GM/DL (13.0-17.0) Hematocrit 36.5 % (39.0-51.0) Red Cell Distribution Width 18.5 % (11.6-17.2) Neutrophils (%) (Auto) 84.4 % (16.0-70.0) Lymphocytes (%) (Auto) 5.8 % (9.0-44.0) Monocytes (%) (Auto) 9.4 % (0.0-8.0) Neutrophils # (Auto) 8.3 TH/MM3 (1.8-7.7) Lymphocytes # (Auto) 0.6 TH/MM3 (1.0-4.8) Sodium Level 131 MEQ/L 130 MEQ/L (136-145) (136-145) Chloride Level 92 MEQ/L 92 MEQ/L (98-107) (98-107) Blood Urea Nitrogen 75 MG/DL (7-18) 70 MG/DL (7-18) Creatinine 2.38 MG/DL 2.43 MG/DL (0.60-1.30) (0.60-1.30) Estimat Glomerular Filtration 28 ML/MIN (>89) 27 ML/MIN (>89) Rate Random Glucose 112 MG/DL 111 MG/DL (74-106) (74-106) Total Bilirubin 1.9 MG/DL (0.2-1.0) Aspartate Amino Transf 38 U/L (15-37) (AST/SGOT) Alanine Aminotransferase 90 U/L (12-78) (ALT/SGPT) Total Protein 6.2 GM/DL (6.4-8.2) Albumin 2.1 GM/DL 2.0 GM/DL (3.4-5.0) (3.4-5.0) Activated Partial 51.9 SEC 58.0 SEC Thromboplast Time (24.3-30.1) (24.3-30.1) Calcium Level 8.4 MG/DL (8.5-10.1) Imaging Last Impressions Thoracentesis Ultrasound 02/02/17 Signed Impressions: Service Date/Time: Thursday, February 02, 2017 11:24 - CONCLUSION: Uncomplicated ultrasound guided thoracentesis. Eliud Garces MD FACR Chest X-Ray 02/02/17 Signed Impressions: Service Date/Time: Thursday, February 02, 2017 12:13 - CONCLUSION: Negative for pneumothorax. Consolidative changes and minimal fluid persists on the right. Eliud Garces MD FACR Cholangiopancreatography MRI 02/01/17 0000 Signed Impressions: Service Date/Time: Wednesday, February 01, 2017 18:17 - CONCLUSION: 1. There is a large gallstone in the gallbladder. 2. No definite biliary tract obstruction. 3. There is a small amount of ascites in the upper abdomen with nonspecific edema in the mesenteric fat. Cem Lee MD Chest Ultrasound 02/01/17 0000 Signed Impressions: Service Date/Time: Wednesday, February 01, 2017 15:28 - CONCLUSION: Right pleural effusion. Christos Euceda MD Chest CT 02/01/17 0000 Signed Impressions: Service Date/Time: Wednesday, February 01, 2017 17:48 - CONCLUSION: 1. Large right-sided pleural effusion with parenchymal consolidation in the right lower lung. 2. Small left effusion. Cem Lee MD Abdomen/Pelvis CT 02/01/17 0000 Signed Impressions: Service Date/Time: Wednesday, February 01, 2017 17:48 - CONCLUSION: 1. Small to moderate amount of ascitic fluid with nonspecific bowel gas pattern. His findings are nonspecific. Infection cannot be excluded. There is no distinct focal abscess on this noncontrast study performed without oral contrast. 2. Densely calcified gallstone. 3. Moderate size right pleural effusion consolidation and possible rounded atelectasis in the right lower lobe. There is a smaller left effusion. Jacob Graham MD Abdomen X-Ray 01/31/17 180 Signed Impressions: Service Date/Time: Tuesday, January 31, 2017 18:27 - CONCLUSION: 1. Nonspecific bowel gas pattern. 2. Calcification right upper quadrant most likely representing a gallstone. Cem Lee MD Gall Bladder Ultrasound 01/31/17 0000 Signed Impressions: Service Date/Time: Tuesday, January 31, 2017 20:24 - CONCLUSION: 1. Cholelithiasis with mild gallbladder wall thickening. 2. Moderate to large right effusion. 3. Ascitic fluid in the right lower quadrant. Jacob Graham MD PE at Discharge GENERAL: NAD and sitting by the side of the bed SKIN: Warm and dry. HEAD: Normocephalic. EYES: No scleral icterus. No injection or drainage. NECK: Supple, trachea midline. No JVD or lymphadenopathy. CARDIOVASCULAR: Irregular Regular rate and rhythm without murmurs, gallops, or rubs. RESPIRATORY: Breath sounds equal bilaterally. No accessory muscle use. GASTROINTESTINAL: Abdomen soft, non-tender, nondistended. MUSCULOSKELETAL: No cyanosis, improving anasarca BACK: Nontender without obvious deformity. No CVA tenderness. Hospital Course Pneumonia with right pleural effusion -. Completed course of IV antibiotic including cefepime -s/p thoracentesis 02/02/17 culture negative -ID and pulmonary ff Cardiomyopathy echo with EF 20-25% and diffuse hypokinesis, however patient declined nuclear or left heart catheterization Treated with diuretic including Lasix 40 mg by mouth twice a day and Metolazone cardiology following. Cholelithiasis - surgery evaluation appreciated; no plan for surgery at this time -Hepatitis profile negative elevated LFT's- likely due to liver congestion due to CHF-improving MRCP with a large gallstone in the gallbladder. - hepatitis panel negative -GI following. Atrial/flutter fibrillation with RVR -Eventually switched to Cardizem CD 120 mg daily and Lopressor 200 mg by mouth twice a day -HeWas on Heparin drip however outpatient MD to consider OAC. patient with thrombocytopenia and compliance as an issue -Cardiology following renal insufficiency with unknown duration -Appreciate input from nephrology -Renal indices improving -Avoid nephrotoxic drugs Hyponatremia likely due to fluid overload- improving Insomnia: Restoril when necessary DVT prophylaxis: Heparin Pt Condition on Discharge: Fair Discharge Disposition: Disch w/ Home Health Serv Discharge Time: > 30 minutes Discharge Instructions DIET: Follow Instructions for: Heart Healthy Diet Activities you can perform: Regular-No Restrictions Follow up Referrals: PCP Follow-up - 1 Week New Medications: Potassium Chloride ER (Potassium Chloride ER) 20 Meq Tab 20 MEQ PO DAILY Electrolyte Replacement #30 Ref 0 TAB Diltiazem CD 24 HR (Cardizem CD 24 HR) 120 Mg Caper 120 MG PO DAILY Regulate Heart Beat #30 CAP Furosemide (Furosemide) 40 Mg Tab 40 MG PO BID@09,18 Blood Pressure Management #60 TAB Metolazone (Metolazone) 2.5 Mg Tab 2.5 MG PO DAILY Blood Pressure Management #30 TAB Metoprolol Tartrate (Lopressor) 100 Mg Tab 150 MG PO Q12HR Regulate Heart Beat #60 TAB Continued Medications: Albuterol 18 GM Inh (Ventolin Hfa 18 GM Inh) 90 Mcg/Act Aer 2 PUFF INH Q4-6H PRN SHORTNESS OF BREATH #1 Ref 0 INHALER Atorvastatin (Atorvastatin) 40 Mg Tab 40 MG PO HS Cholesterol Management #30 Ref 0 TAB Multiple Vitamin (Multi Vitamin) 1 Tab Tab 1 TAB PO DAILY TAB Naif Orozco MD Feb 08, 2017 11:55
== END 2017-02-08 14:10 | disposition home health service (06) | DRG 291 ==
LOC: NEPA 15:38 → NEDA 20:30 → HIME 22:10 → HCPC 02-03 19:05 → N04A 02-04 20:39
PROVIDERS: ADMIT Hospitalist; ATTEND Hospitalist
PROC: 0W993ZZ Drainage of Right Pleural Cavity, Percutaneous Approach (ICD-10-PCS; principal; 2017-02-02)
DX: I13.0 Hypertensive heart and chronic kidney disease with heart failure and stage 1 through stage 4 chronic kidney disease, or unspecified chronic kidney disease (principal); J18.9 Pneumonia, unspecified organism; N17.9 Acute kidney failure, unspecified; J90 Pleural effusion, not elsewhere classified; E87.2 Acidosis; E46 Unspecified protein-calorie malnutrition; J44.0 Chronic obstructive pulmonary disease with (acute) lower respiratory infection; R18.8 Other ascites; I42.9 Cardiomyopathy, unspecified; I50.21 Acute systolic (congestive) heart failure; I48.92 Unspecified atrial flutter; E87.1 Hypo-osmolality and hyponatremia; E11.22 Type 2 diabetes mellitus with diabetic chronic kidney disease; E78.5 Hyperlipidemia, unspecified; N18.9 Chronic kidney disease, unspecified; D69.6 Thrombocytopenia, unspecified; E87.5 Hyperkalemia; K76.1 Chronic passive congestion of liver; I48.91 Unspecified atrial fibrillation; I08.1 Rheumatic disorders of both mitral and tricuspid valves; K21.9 Gastro-esophageal reflux disease without esophagitis; K80.20 Calculus of gallbladder without cholecystitis without obstruction; D64.9 Anemia, unspecified; G47.00 Insomnia, unspecified; M54.5 Low back pain; G89.29 Other chronic pain; F12.90 Cannabis use, unspecified, uncomplicated; Z79.84 Long term (current) use of oral hypoglycemic drugs; Z87.891 Personal history of nicotine dependence
CPT/HCPCS: 32555; 71010; 71020; 71250; 74000; 74176; 74181; 76377; 76604; 76705; 80053; 80069; 80074; 81001; 82103; 82105; 82390; 82550; 82552; 82728; 82945; 83520; 83540; 83550; 83605; 83615; 83690; 83735; 83930; 84145; 84157; 84165; 84484; 84550; 85025; 85027; 85379; 85610; 85730; 86038; 86140; 86256; 86703; 87015; 87040; 87070; 87102; 87116; 87205; 87206; 87641; 88112; 88305; 89051; 93005; 93306; 96374; 96375; C1729; J0360; J0456; J0692; J0696; J1644; J7030; J7050